=== PATIENT | female | born 1940 | race Two or more races ===

== ENCOUNTER 2017-01-29 20:47 | Emergency (ER) | payer MEDICARE, OTHER ==
[2017-01-29 21:01] VITALS: BP 150/67
[2017-01-29] MEDS ORDERED: Sodium Chloride 0.9% 10 ML Syringe FLUSH PRN (21:29)
--- NOTE | 2017-01-29 21:36 | EDM.PDOC ---
ED HPI GENERAL MEDICAL PROBLEM - General Chief Complaint: Upper Extremity Injury/Pain Stated Complaint: PAIN IN NECK AND GOING DOWN ARM Time Seen by Provider: 01/29/17 21:12 Source of Information: Reports: Patient History Limitations: Reports: No Limitations - History of Present Illness INITIAL COMMENTS - FREE TEXT/NARRATIVE: Patient is a 76-year-old female who presents the ED with multiple complaints. States this past Friday developed faint anterior chest discomfort with radiation of pain from the neck into her left arm. States that discomfort went away after rubbing her left arm. Next morning she had similar complaints in the right side of her neck into her right arm. She has been slightly more short of breath. She has also noticed increased swelling to legs bilaterally. States she has chronic swelling to the left leg normally due to vein harvesting for CABG 3 in 2008. There is no pain to her lower extremities. In addition she's noticed some mild distention to her abdomen and feels wesley. She's had some increasing pain to her abdomen that radiates into her lower extremities with ambulation. This is intermittent. Pain also radiates into her back. Describes as sharp achy sensation. Currently is rated 4 out of 10. She has no previous history of similar episodes. She denies any nausea/vomiting, currently no chest pain, productive cough, fever/chills, dysuria, diarrhea, constipation, blood in stool , hematuria, or any additional complaints. She has no history of DVT/PE. Past medical history: Asthma, seasonal allergies, hypertension, diabetes, hypercholesteremia, coronary artery disease, and [place]. Current medications: Glipizide, transient, metoprolol, amlodipine, lisinopril, omeprazole, aspirin 81 mg, vitamin B 12, and unknown cholesterol medication. Surgical history: CABG 3 2008, inguinal hernia repair, gallbladder Neck Pain Score (Numeric/FACES): 9 - Related Data Allergies Allergy/AdvReac Type Severity Reaction Status Date / Time Iodinated Contrast- Oral and Allergy Severe Swelling Verified 01/29/17 20:56 IV Dye [Iodinated Contrast Media - IV Dye] acetaminophen [From Tylenol] Allergy Swelling Verified 01/29/17 20:56 morphine Allergy Hives Verified 01/29/17 20:56 fluticasone propionate AdvReac Tachycardia Verified 01/29/17 20:56 [From Advair Diskus] Penicillins AdvReac Anxiety Verified 01/29/17 20:56 prednisone AdvReac Gi Bleeding Verified 01/29/17 20:56 salmeterol xinafoate AdvReac Tachycardia Verified 01/29/17 20:56 [From Anisa Mott] Home Meds: Home Meds Benzonatate 100 mg PO TID PRN 08/13/14 [History] Calcium Carb/Vitamin D3/Vit K1 [Viactiv Soft Chew] 1 tab PO DAILY 08/13/14 [ History] Linagliptin [Tradjenta] 5 mg PO DAILY 08/13/14 [History] Lisinopril 20 mg PO DAILY 08/13/14 [History] Methyl B 12 Plus 400 mcg PO DAILY 08/13/14 [History] Metoprolol Tartrate [Lopressor] 50 mg PO BID 08/13/14 [History] Omeprazole 20 mg PO DAILY 08/13/14 [History] amLODIPine [Norvasc] 5 mg PO DAILY 08/13/14 [History] atorvaSTATin [Lipitor] 20 mg PO DAILY 08/13/14 [History] glipiZIDE [Glucotrol] 20 mg PO BID 08/13/14 [History] Aspirin [Adult Low Dose Aspirin EC] 81 mg PO DAILY 07/17/15 [History] Past Medical History HEENT History: Reports: Allergic Rhinitis, Glaucoma Cardiovascular History: Reports: CAD, High Cholesterol, Hypertension Respiratory History: Reports: COPD Gastrointestinal History: Reports: GERD, PUD Other Gastrointestinal History: Left inguinal hernia repair Neurological History: Reports: Vertigo Endocrine/Metabolic History: Reports: Diabetes, Type II - Past Surgical History HEENT Surgical History: Reports: Cataract Surgery, LASIK Cardiovascular Surgical History: Reports: Coronary Artery Bypass GI Surgical History: Reports: Cholecystectomy, Hernia, Inguinal Other Musculoskeletal Surgeries/Procedures:: Carpal tunnel repair Social & Family History - Tobacco Use Smoking Status *Q: Never Smoker Second Hand Smoke Exposure: No - Alcohol Use Days Per Week of Alcohol Use: 0 - Recreational Drug Use Recreational Drug Use: No - Living Situation & Occupation Living situation: Reports: , with Spouse, with Family Occupation: Retired Review of Systems - Review of Systems Review Of Systems: ROS reveals no pertinent complaints other than HPI. ED EXAM, GENERAL - Physical Exam Exam: See Below Exam Limited By: No Limitations General Appearance: Alert, WD/WN, No Apparent Distress Ears: Hearing Grossly Normal Nose: Normal Inspection Throat/Mouth: Normal Inspection, Normal Oropharynx, Normal Voice, No Airway Compromise Neck: Normal Inspection, Supple, Non-Tender, Full Range of Motion. No: Carotid Bruit Respiratory/Chest: No Respiratory Distress, Lungs Clear, Normal Breath Sounds, No Accessory Muscle Use, Chest Non-Tender Cardiovascular: Normal Peripheral Pulses, Regular Rate, Rhythm, No JVD, Systolic Murmur Peripheral Pulses: 2+: Radial (L), Radial (R), Posterior Tibial (L), Posterior Tibial (R) GI/Abdominal: Normal Bowel Sounds, Soft, No Organomegaly, Tender (generalized), Other (No McBurney's). No: No Abnormal Bruit, No Mass Back Exam: Normal Inspection. No: CVA Tenderness (L), CVA Tenderness (R) Extremities: Normal Range of Motion, Non-Tender, Pedal Edema (left 1+>right trace, Left is chronic no new changes. ) Neurological: Alert, Oriented, CN II-XII Intact, Normal Cognition, No Motor/ Sensory Deficits Psychiatric: Normal Affect, Normal Mood Skin Exam: Warm, Dry, Intact, Normal Color, No Rash Course - Vital Signs Last Recorded V/S: Last Vital Signs Temp 97.5 F 01/29/17 20:56 Pulse 66 01/29/17 20:56 Resp BP 150/67 H 01/29/17 20:56 Pulse Ox 97 01/29/17 20:56 - Orders/Labs/Meds Orders: Active Orders 24 hr Category Date Time Status EKG 12 Lead [EKG Documentation Completion] [RC] STAT Care 01/29/17 21:19 Active Peripheral IV Care [RC] . DIRECTED Care 01/29/17 21:29 Active Peripheral IV Insertion Adult [OM.PC] Stat Oth 01/29/17 21:29 Ordered Labs: Laboratory Tests 01/29/17 01/29/17 01/29/17 Range/Units 21:35 21:35 21:35 WBC 5.82 (3.98-10.04) K/mm3 RBC 4.21 (3.98-5.22) M/mm3 Hgb 11.8 (11.2-15.7) gm/L Hct 35.8 (34.1-44.9) % MCV 85.0 (79.4-94.8) fl MCH 28.0 (25.6-32.2) pg MCHC 33.0 (32.2-35.5) g/dl RDW Std Deviation 46.9 H (36.4-46.3) fL Plt Count 175 L (182-369) K/mm3 MPV 9.5 (9.4-12.3) fl Neut % (Auto) 61.6 (34.0-71.1) % Lymph % (Auto) 25.3 (19.3-51.7) % [place] % (Auto) 11.5 (4.7-12.5) % Eos % (Auto) 1.2 (0.7-5.8) Baso % (Auto) 0.2 (0.1-1.2) % Neut # (Auto) 3.59 (1.56-6.13) K/mm3 Lymph # (Auto) 1.47 (1.18-3.74) K/mm3 [place] # (Auto) 0.67 H (0.24-0.36) K/mm3 Eos # (Auto) 0.07 (0.04-0.36) K/mm3 Baso # (Auto) 0.01 (0.01-0.08) K/mm3 PT 9.9 (8.0-13.0) SECONDS INR 0.91 APTT 24 (22-36) SECONDS Sodium 138 (136-145) mEq/L Potassium 4.1 (3.5-5.1) mEq/L Chloride 104 (98-107) mEq/L Carbon Dioxide 26 (21-32) mEq/L Anion Gap 12.1 (5-15) BUN 20 H (7-18) mg/dL Creatinine 0.9 (0.55-1.02) mg/dL Est Cr Clr Drug Dosing 37.00 mL/min Estimated GFR (MDRD) > 60 (>60) mL/min BUN/Creatinine Ratio 22.2 H (14-18) Glucose 166 H (83-115) mg/dL Calcium 8.0 L (8.5-10.1) mg/dL Total Bilirubin 0.4 (0.2-1.0) mg/dL AST 19 (15-37) U/L ALT 24 (14-59) U/L Alkaline Phosphatase 127 H (46-116) U/L Troponin I < 0.017 (0.00-0.056) ng/mL C-Reactive Protein (<1.0) mg/dL B-Natriuretic Peptide (0-100) pg/mL Total Protein 7.3 (6.4-8.2) g/dl Albumin 3.6 (3.4-5.0) g/dl Globulin 3.7 gm/dL Albumin/Globulin Ratio 1.0 (1-2) Lipase (73-393) U/L Urine Color (Yellow) Urine Appearance (Clear) Urine pH (5.0-8.0) Ur Specific [place] (1.005-1.030) Urine Protein (Negative) Urine Glucose (UA) (Negative) Urine Ketones (Negative) Urine Occult Blood (Negative) Urine Nitrite (Negative) Urine Bilirubin (Negative) Urine Urobilinogen (0.2-1.0) Ur Leukocyte Esterase (Negative) Urine RBC (0-5) /hpf Urine WBC (0-5) /hpf Ur Epithelial Cells (0-5) /hpf Urine Bacteria (FEW) /hpf Urine Mucus (FEW) /hpf 01/29/17 01/29/17 01/30/17 Range/Units 21:35 21:35 00:30 WBC (3.98-10.04) K/mm3 RBC (3.98-5.22) M/mm3 Hgb (11.2-15.7) gm/L Hct (34.1-44.9) % MCV (79.4-94.8) fl MCH (25.6-32.2) pg MCHC (32.2-35.5) g/dl RDW Std Deviation (36.4-46.3) fL Plt Count (182-369) K/mm3 MPV (9.4-12.3) fl Neut % (Auto) (34.0-71.1) % Lymph % (Auto) (19.3-51.7) % [place] % (Auto) (4.7-12.5) % Eos % (Auto) (0.7-5.8) Baso % (Auto) (0.1-1.2) % Neut # (Auto) (1.56-6.13) K/mm3 Lymph # (Auto) (1.18-3.74) K/mm3 [place] # (Auto) (0.24-0.36) K/mm3 Eos # (Auto) (0.04-0.36) K/mm3 Baso # (Auto) (0.01-0.08) K/mm3 PT (8.0-13.0) SECONDS INR APTT (22-36) SECONDS Sodium (136-145) mEq/L Potassium (3.5-5.1) mEq/L Chloride (98-107) mEq/L Carbon Dioxide (21-32) mEq/L Anion Gap (5-15) BUN (7-18) mg/dL Creatinine (0.55-1.02) mg/dL Est Cr Clr Drug Dosing mL/min Estimated GFR (MDRD) (>60) mL/min BUN/Creatinine Ratio (14-18) Glucose (83-115) mg/dL Calcium (8.5-10.1) mg/dL Total Bilirubin (0.2-1.0) mg/dL AST (15-37) U/L ALT (14-59) U/L Alkaline Phosphatase (46-116) U/L Troponin I (0.00-0.056) ng/mL C-Reactive Protein 0.9 (<1.0) mg/dL B-Natriuretic Peptide 97 (0-100) pg/mL Total Protein (6.4-8.2) g/dl Albumin (3.4-5.0) g/dl Globulin gm/dL Albumin/Globulin Ratio (1-2) Lipase 251 (73-393) U/L Urine Color Yellow (Yellow) Urine Appearance Clear (Clear) Urine pH 6.0 (5.0-8.0) Ur Specific [place] 1.020 (1.005-1.030) Urine Protein Negative (Negative) Urine Glucose (UA) Negative (Negative) Urine Ketones Negative (Negative) Urine Occult Blood 1+ H (Negative) Urine Nitrite Negative (Negative) Urine Bilirubin Negative (Negative) Urine Urobilinogen 0.2 (0.2-1.0) Ur Leukocyte Esterase Negative (Negative) Urine RBC 0-5 (0-5) /hpf Urine WBC Not seen (0-5) /hpf Ur Epithelial Cells 0-5 (0-5) /hpf Urine Bacteria Not seen (FEW) /hpf Urine Mucus Not seen (FEW) /hpf Meds: Medications Discontinued Medications Generic Name Dose Route Start Last Admin Trade Name Freq PRN Reason Stop Dose Admin Sodium Chloride 10 ml 01/29/17 21:29 01/29/17 21:35 Saline Flush FLUSH 10 ml ASDIRECTED PRN Administration Keep Vein Open - Re-Assessments/Exams Free Text/Narrative Re-Assessment/Exam: Ordered peripheral IV. Initial labs and studies include CBC, chem 14, lipase, CRP, EKG, PTT/INR, PTT, chest x-ray 1 view, and UA. 01/29/17 21:37 01/29/17 21:38 EKG: Sinus rhythm rate of 61, intraventricular conduction delay, left bundle branch block present. Previous EKG dated 05/31/2016 sinus rhythm at a rate of 68 with no left bundle branch block present. Labs reviewed: CBC essentially normal. Troponin less than 0.017. CRP 0.9. BNP 97. Lipase 251. Chem 14 essentially normal as well. Chest x-ray reviewed: no acute findings Noted. Reviewed with Dr. Nuno. I had ordered CT of the abdomen and pelvis with IV contrast. Patient is allergic to IV contrast. Discussed lab findings with patient. She has opted to not stay and have oral contrast to obtain CT abdomen and pelvis. She has appt with PCP this coming Friday and will wait to see her for any needed testing. Offered to obtain CT abdomen and pelvis with oral contrast on outpatient basis to which she refuses. Will discharge patient home with instructions as documented. Unclear etiology of current complaint. Troponin was negative which is in most cases ruling out the heart as cause since it should have been positive with almost three days of symptoms. Due to patients history additional provocative testing maybe required. PCP can determine. As for swelling to lower legs, unclear etiology. She has strong pedal pulses with minimal/ no swelling to the right leg. Left leg is chronically swollen since endovein harvesting of GSV 2008 with no new changes with further discussion. She has no pain to lower extremities concerning for DVT. She has no history PE/DVT. In addition she denies history of aortic abdominal aneurysm. Thus at this point believe it would be safe for patient to be discharged home with instructions to followup with PCP. Departure - Departure Time of Disposition: 01:11 Disposition: Home, Self-Care 01 Condition: Good Clinical Impression: Neck and shoulder pain, Leg swelling Abdominal pain Qualifiers: Abdominal location: generalized Qualified Code(s): R10.84 - Generalized abdominal pain - Discharge Information Instructions: Edema Referrals: Floberg,Sandie M, [employer] [Primary Care Provider] - Forms: ED Department Discharge Additional Instructions: Unclear etiology of current complaints as discussed. Lab work was essentially normal with no concerning findings. CXR was negative for acute findings. Will have you see PCP for further evaluation of abdominal discomfort as requested. Return to the E.D. as needed for any new or worsening symptoms. - My Orders Last 24 Hours: My Active Orders 01/29/17 21:19 EKG 12 Lead [EKG Documentation Completion] [RC] STAT 01/29/17 21:29 Peripheral IV Care [RC] . DIRECTED Peripheral IV Insertion Adult [OM.PC] Stat - Assessment/Plan Last 24 Hours: My Active Orders 01/29/17 21:19 EKG 12 Lead [EKG Documentation Completion] [RC] STAT 01/29/17 21:29 Peripheral IV Care [RC] . DIRECTED Peripheral IV Insertion Adult [OM.PC] Stat
--- NOTE | 2017-01-30 07:43 | CR ---
Chest: Portable view of the chest was obtained. Comparison: Previous chest x-ray of 05/31/16. Heart is mildly enlarged but accentuated from portable technique. Previous sternotomy is noted. Lungs are clear with no acute infiltrates. Bony structures are grossly intact. Surgical clips are seen from prior cholecystectomy. Impression: 1. Nothing acute is appreciated on portable chest x-ray. Diagnostic code #2
== END 2017-01-30 01:26 | disposition home or self-care (01) ==
LOC: JD.ED 20:47
DX: M54.2 Cervicalgia (principal); M25.512 Pain in left shoulder; R10.84 Generalized abdominal pain; M79.89 Other specified soft tissue disorders; I10 Essential (primary) hypertension; I25.810 Atherosclerosis of coronary artery bypass graft(s) without angina pectoris; E78.00 Pure hypercholesterolemia, unspecified; J44.9 Chronic obstructive pulmonary disease, unspecified; J45.909 Unspecified asthma, uncomplicated; K21.9 Gastro-esophageal reflux disease without esophagitis; E11.9 Type 2 diabetes mellitus without complications; R06.02 Shortness of breath; Z98.49 Cataract extraction status, unspecified eye; Z95.1 Presence of aortocoronary bypass graft; Z98.890 Other specified postprocedural states; Z79.84 Long term (current) use of oral hypoglycemic drugs; Z79.82 Long term (current) use of aspirin; Z79.899 Other long term (current) drug therapy; Z88.0 Allergy status to penicillin; Z88.5 Allergy status to narcotic agent; Z88.8 Allergy status to other drugs, medicaments and biological substances; Z91.041 Radiographic dye allergy status
CPT/HCPCS: 36415; 71010; 80053; 81001; 83690; 83880; 84484; 85025; 85610; 85730; 86140; 93005; 99284; J7050; 99283

== ENCOUNTER 2017-05-03 19:34 | Emergency (ER) | payer MEDICARE, OTHER ==
[2017-05-03] MEDS ORDERED: Albuterol/Ipratropium 3.0-0.5 MG/3 ML Neb Soln NEB ONE (20:11)
--- NOTE | 2017-05-03 20:25 | EDM.PDOC ---
ED HPI GENERAL MEDICAL PROBLEM - General Chief Complaint: Respiratory Problem Stated Complaint: TROUBLE BREATHING Time Seen by Provider: 05/03/17 19:36 Source of Information: Reports: Patient, Family History Limitations: Reports: No Limitations - History of Present Illness INITIAL COMMENTS - FREE TEXT/NARRATIVE: This is a 76-year-old female. Over the last couple of days she's been having increasing coughing and wheezing. She has no nebulizer medicine at home and she has no inhaler at home. Because of her coughing and wheezing which she describes as a flareup of her asthma she comes to the ER. She states had she had the nebulizer and inhaler she probably would not come to the ER. She does have a history of chronic versus acute bronchitis and gets flareups periodically of her asthma. She has been eating she has been drinking she's had no nausea vomiting no diarrhea. She denies any abdominal pain other than if she coughs too much that her belly hurts. She has run a low-grade fever at home but she can't tell me how high it's been. Chest Pain Score (Numeric/FACES): 4 - Related Data Allergies Allergy/AdvReac Type Severity Reaction Status Date / Time Iodinated Contrast- Oral and Allergy Severe Swelling Verified 01/29/17 20:56 IV Dye [Iodinated Contrast Media - IV Dye] acetaminophen [From Tylenol] Allergy Swelling Verified 01/29/17 20:56 morphine Allergy Hives Verified 01/29/17 20:56 fluticasone propionate AdvReac Tachycardia Verified 01/29/17 20:56 [From Advair Diskus] Penicillins AdvReac Anxiety Verified 01/29/17 20:56 prednisone AdvReac Gi Bleeding Verified 01/29/17 20:56 salmeterol xinafoate AdvReac Tachycardia Verified 01/29/17 20:56 [From Advair Diskus] Home Meds: Home Meds Benzonatate 100 mg PO TID PRN 08/13/14 [History] Calcium Carb/Vitamin D3/Vit K1 [Viactiv Soft Chew] 1 tab PO DAILY 08/13/14 [ History] Linagliptin [Tradjenta] 5 mg PO DAILY 08/13/14 [History] Lisinopril 20 mg PO DAILY 08/13/14 [History] Methyl B 12 Plus 400 mcg PO DAILY 08/13/14 [History] Metoprolol Tartrate [Lopressor] 50 mg PO BID 08/13/14 [History] Omeprazole 20 mg PO DAILY 08/13/14 [History] amLODIPine [Norvasc] 5 mg PO DAILY 08/13/14 [History] atorvaSTATin [Lipitor] 20 mg PO DAILY 08/13/14 [History] glipiZIDE [Glucotrol] 20 mg PO BID 08/13/14 [History] Aspirin [Adult Low Dose Aspirin EC] 81 mg PO DAILY 07/17/15 [History] Albuterol [IMW: Ventolin HFA] 2 puff INH Q6H #18 gm 05/03/17 [Rx] Cephalexin [Keflex] 500 mg PO TID #21 cap 05/03/17 [Rx] Past Medical History HEENT History: Reports: Allergic Rhinitis, Glaucoma Cardiovascular History: Reports: CAD, High Cholesterol, Hypertension Respiratory History: Reports: COPD Gastrointestinal History: Reports: GERD, PUD Other Gastrointestinal History: Left inguinal hernia repair Neurological History: Reports: Vertigo Endocrine/Metabolic History: Reports: Diabetes, Type II - Past Surgical History HEENT Surgical History: Reports: Cataract Surgery, LASIK Cardiovascular Surgical History: Reports: Coronary Artery Bypass GI Surgical History: Reports: Cholecystectomy, Hernia, Inguinal Other Musculoskeletal Surgeries/Procedures:: Carpal tunnel repair. Social & Family History - Tobacco Use Smoking Status *Q: Never Smoker Second Hand Smoke Exposure: No - Alcohol Use Days Per Week of Alcohol Use: 0 - Recreational Drug Use Recreational Drug Use: No - Living Situation & Occupation Living situation: Reports: , with Spouse, with Family Occupation: Retired ED ROS GENERAL - Review of Systems Review Of Systems: See Below Constitutional: Reports: Fever, Chills, Malaise HEENT: Reports: No Symptoms Respiratory: Reports: Shortness of Breath, Wheezing, Cough Cardiovascular: Denies: Chest Pain Endocrine: Reports: No Symptoms GI/Abdominal: Reports: Other (Abdominal pain from coughing). Denies: Diarrhea, Nausea, Vomiting : Reports: No Symptoms Musculoskeletal: Reports: No Symptoms Skin: Reports: No Symptoms Neurological: Reports: No Symptoms Psychiatric: Reports: No Symptoms Hematologic/Lymphatic: Reports: No Symptoms ED EXAM, GENERAL - Physical Exam Exam: See Below Exam Limited By: No Limitations General Appearance: Alert, WD/WN, No Apparent Distress Eye Exam: Bilateral Eye: Normal Inspection Ears: Normal External Exam, Normal Canal, Normal TMs Nose: Normal Inspection Throat/Mouth: Normal Inspection, Normal Lips, Normal Voice, No Airway Compromise Head: Normocephalic Neck: Supple Respiratory/Chest: Other (Occasional expiratory wheeze noted but no prolonged expiratory phase otherwise the lungs appear to be clear) Cardiovascular: Regular Rate, Rhythm, No Murmur GI/Abdominal: Soft Back Exam: Full Range of Motion Extremities: Normal Range of Motion, Other (Left lower extremity has some slight swelling compared to the right but apparently that is normal for her) Neurological: Alert, Oriented Psychiatric: Normal Affect, Normal Mood Skin Exam: Warm, Dry Course - Vital Signs Last Recorded V/S: Last Vital Signs Temp 98.4 F 05/03/17 19:43 Pulse 72 05/03/17 20:29 Resp 20 05/03/17 19:43 BP 173/66 H 05/03/17 19:43 Pulse Ox 97 05/03/17 20:29 - Orders/Labs/Meds Orders: Active Orders 24 hr Category Date Time Status RT Aerosol Therapy [RC] ASDIRECTED Care 05/03/17 20:11 Active Chest 2V [CR] Stat Exams 05/03/17 20:11 Taken cefTRIAXone [Rocephin] 1 gm Med 05/03/17 21:15 Active Lidocaine 1% [Xylocaine 1%] 2.1 ml IM Q24H Medication Orders Ceftriaxone Sodium 1 gm/ (Lidocaine HCl 2.1 ml) 0 gm IM Q24H DA Labs: Laboratory Tests 05/03/17 05/03/17 Range/Units 20:27 20:27 WBC 8.57 (3.98-10.04) K/mm3 RBC 4.32 (3.98-5.22) M/mm3 Hgb 12.1 (11.2-15.7) gm/L Hct 36.2 (34.1-44.9) % MCV 83.8 (79.4-94.8) fl MCH 28.0 (25.6-32.2) pg MCHC 33.4 (32.2-35.5) g/dl RDW Std Deviation 46.2 (36.4-46.3) fL Plt Count 176 L (182-369) K/mm3 MPV 9.3 L (9.4-12.3) fl Neut % (Auto) 79.2 H (34.0-71.1) % Lymph % (Auto) 11.4 L (19.3-51.7) % [place] % (Auto) 7.9 (4.7-12.5) % Eos % (Auto) 1.3 (0.7-5.8) Baso % (Auto) 0.1 (0.1-1.2) % Neut # (Auto) 6.78 H (1.56-6.13) K/mm3 Lymph # (Auto) 0.98 L (1.18-3.74) K/mm3 [place] # (Auto) 0.68 H (0.24-0.36) K/mm3 Eos # (Auto) 0.11 (0.04-0.36) K/mm3 Baso # (Auto) 0.01 (0.01-0.08) K/mm3 Sodium 138 (136-145) mEq/L Potassium 4.2 (3.5-5.1) mEq/L Chloride 103 (98-107) mEq/L Carbon Dioxide 29 (21-32) mEq/L Anion Gap 10.2 (5-15) BUN 15 (7-18) mg/dL Creatinine 0.9 (0.55-1.02) mg/dL Est Cr Clr Drug Dosing TNP Estimated GFR (MDRD) > 60 (>60) mL/min BUN/Creatinine Ratio 16.7 (14-18) Glucose 125 H (83-115) mg/dL Calcium 8.8 (8.5-10.1) mg/dL Total Bilirubin 0.5 (0.2-1.0) mg/dL AST 19 (15-37) U/L ALT 16 (14-59) U/L Alkaline Phosphatase 122 H (46-116) U/L Total Protein 7.4 (6.4-8.2) g/dl Albumin 3.8 (3.4-5.0) g/dl Globulin 3.6 gm/dL Albumin/Globulin Ratio 1.1 (1-2) Meds: Medications Generic Name Dose Route Start Last Admin Trade Name Freq PRN Reason Stop Dose Admin Ceftriaxone Sodium 1 gm/ 0 gm 05/03/17 21:15 Lidocaine HCl 2.1 ml IM Q24H DA Discontinued Medications Generic Name Dose Route Start Last Admin Trade Name Freq PRN Reason Stop Dose Admin Albuterol/Ipratropium 3 ml 05/03/17 20:11 05/03/17 20:26 Duoneb 3.0-0.5 Mg/3 Ml NEB 05/03/17 20:12 3 ml ONETIME ONE Administration - Re-Assessments/Exams Free Text/Narrative Re-Assessment/Exam: 05/03/17 21:18 Patient tolerated the DuoNeb with no problems and no tachycardia. We'll provide a Rocephin shot IM to start the antibiotics. We can dispense her Xopenex individual containers for her nebulizer at home but they wish to get a prescription for the albuterol rather than using the [facility] since the albuterol inhaler is $70. Departure - Departure Time of Disposition: 21:20 Disposition: Home, Self-Care 01 Condition: Good Clinical Impression: Exacerbation of asthma Acute bronchitis Qualifiers: Bronchitis organism: unspecified organism Qualified Code(s): J20.9 - Acute bronchitis, unspecified - Discharge Information Prescriptions: Albuterol [IMW: Ventolin HFA] 2 puff INH Q6H #18 gm Cephalexin [Keflex] 500 mg PO TID #21 cap Instructions: Acute Bronchitis, [id number] Referrals: Sandie Bhagat, [employer] [Primary Care Provider] - Forms: ED Department Discharge Additional Instructions: Take the antibiotics faithfully continue get them tomorrow, use your albuterol inhaler with a spacer to help get the medicine in your lungs better, usually nebulizer every 8-12 hours as needed for your breathing, consider getting some Robitussin-DM or another cough syrup at the pharmacy when you chicken picker your medications, follow-up with your doctor this week for recheck, return to the ER if needed - My Orders Last 24 Hours: My Active Orders 05/03/17 20:11 RT Aerosol Therapy [RC] ASDIRECTED Chest 2V [CR] Stat 05/03/17 21:15 cefTRIAXone [Rocephin] 1 gm Lidocaine 1% [Xylocaine 1%] 2.1 ml IM Q24H - Assessment/Plan Last 24 Hours: My Active Orders 05/03/17 20:11 RT Aerosol Therapy [RC] ASDIRECTED Chest 2V [CR] Stat 05/03/17 21:15 cefTRIAXone [Rocephin] 1 gm Lidocaine 1% [Xylocaine 1%] 2.1 ml IM Q24H
[2017-05-03] MEDS ORDERED: cefTRIAXone 1 GM, Lidocaine 1% 2.1 ML IM SCH ×2 (21:15)
[2017-05-03] MEDS ORDERED: Levalbuterol HCl 1.25 MG/3 ML Neb ONE (21:22)
[2017-05-03 21:38] VITALS: BP 148/63
--- NOTE | 2017-05-04 19:58 | CR ---
Chest: Two views of the chest were obtained. Comparison: Previous chest x-ray of 01/29/17. Heart size appears within normal limits. Tortuous thoracic aorta is seen. Previous sternotomy is noted. Prior cholecystectomy is seen. Lungs are clear with no acute infiltrates. Degenerative spurring is noted within the spine on the lateral view. Impression: 1. Incidental findings. Nothing acute is appreciated on two-view chest x-ray. Diagnostic code #2
== END 2017-05-03 21:35 | disposition home or self-care (01) ==
LOC: JD.ED 19:34
DX: J45.901 Unspecified asthma with (acute) exacerbation (principal); J20.9 Acute bronchitis, unspecified; E78.00 Pure hypercholesterolemia, unspecified; E11.9 Type 2 diabetes mellitus without complications; Z88.5 Allergy status to narcotic agent; Z88.0 Allergy status to penicillin; Z88.8 Allergy status to other drugs, medicaments and biological substances; Z79.82 Long term (current) use of aspirin; Z79.899 Other long term (current) drug therapy; Z98.49 Cataract extraction status, unspecified eye
CPT/HCPCS: 36415; 71020; 80053; 85025; 94640; 96372; 99285; J0696; 99284

== ENCOUNTER 2017-09-21 05:49 | Emergency (ER) | payer MEDICARE, OTHER ==
[2017-09-21 05:58] VITALS: BP 173/69
--- NOTE | 2017-09-21 07:34 | EDM.PDOC ---
ED HPI GENERAL MEDICAL PROBLEM - General Chief Complaint: Headache Stated Complaint: HEADACHE Time Seen by Provider: 09/21/17 06:29 Source of Information: Reports: Patient History Limitations: Reports: No Limitations - History of Present Illness INITIAL COMMENTS - FREE TEXT/NARRATIVE: This is a 77-year-old female. She has a history of a headache for the last month. Her doctor got an MRI of her brain and apparently was all normal but she still has the headache. She comes to the ER for evaluation because of her headache. She denies any recent illnesses no colds no cough no ear pain no nausea no vomiting no diarrhea. She describes it as a dull throbbing type pain in the center of her forehead and the top of her head. She denies any photophobia or difficulty in hearing. It does not make her nauseated. She has not taken any medications for it because she can't take ibuprofen. I think she has taken some Tylenol but it hasn't helped. Headache Pain Score (Numeric/FACES): 9 - Related Data Allergies Allergy/AdvReac Type Severity Reaction Status Date / Time Iodinated Contrast- Oral and Allergy Severe Swelling Verified 09/21/17 05:58 IV Dye [Iodinated Contrast Media - IV Dye] acetaminophen [From Tylenol] Allergy Swelling Verified 09/21/17 05:58 morphine Allergy Hives Verified 09/21/17 05:58 fluticasone propionate AdvReac Tachycardia Verified 09/21/17 05:58 [From Advair Diskus] Penicillins AdvReac Anxiety Verified 09/21/17 05:58 prednisone AdvReac Gi Bleeding Verified 09/21/17 05:58 salmeterol xinafoate AdvReac Tachycardia Verified 09/21/17 05:58 [From Advair Diskus] Home Meds: Home Meds Benzonatate 100 mg PO TID PRN 08/13/14 [History] Calcium Carb/Vitamin D3/Vit K1 [Viactiv Soft Chew] 1 tab PO DAILY 08/13/14 [ History] Linagliptin [Tradjenta] 5 mg PO DAILY 08/13/14 [History] Lisinopril 20 mg PO DAILY 08/13/14 [History] Methyl B 12 Plus 400 mcg PO DAILY 08/13/14 [History] Metoprolol Tartrate [Lopressor] 75 mg PO BID 08/13/14 [History] Omeprazole 20 mg PO DAILY 08/13/14 [History] amLODIPine [Norvasc] 5 mg PO DAILY 08/13/14 [History] atorvaSTATin [Lipitor] 20 mg PO DAILY 08/13/14 [History] glipiZIDE [Glucotrol] 20 mg PO BID 08/13/14 [History] Aspirin [Adult Low Dose Aspirin EC] 81 mg PO DAILY 07/17/15 [History] Albuterol [IMW: Ventolin HFA] 2 puff INH Q6H #18 gm 05/03/17 [Rx] Acetaminophen/Butalbital/Caff [Fioricet 325-50-40 MG] 1 each PO Q6H PRN #15 tab 09/21/17 [Rx] Past Medical History HEENT History: Reports: Allergic Rhinitis, Glaucoma Cardiovascular History: Reports: CAD, High Cholesterol, Hypertension Respiratory History: Reports: Asthma, COPD Gastrointestinal History: Reports: GERD, PUD Other Gastrointestinal History: Left inguinal hernia repair Neurological History: Reports: Headaches, Chronic, Vertigo Endocrine/Metabolic History: Reports: Diabetes, Type II - Past Surgical History HEENT Surgical History: Reports: Cataract Surgery, LASIK Cardiovascular Surgical History: Reports: Coronary Artery Bypass GI Surgical History: Reports: Cholecystectomy, Hernia, Inguinal Other Musculoskeletal Surgeries/Procedures:: Carpal tunnel repair. Social & Family History - Tobacco Use Smoking Status *Q: Never Smoker Second Hand Smoke Exposure: No - Caffeine Use Caffeine Use: Reports: Coffee - Alcohol Use Days Per Week of Alcohol Use: 0 - Recreational Drug Use Recreational Drug Use: No - Living Situation & Occupation Living situation: Reports: , with Spouse, with Family Occupation: Retired ED ROS GENERAL - Review of Systems Review Of Systems: See Below Constitutional: Denies: Fever, Chills HEENT: Reports: No Symptoms Respiratory: Reports: No Symptoms Cardiovascular: Reports: No Symptoms Endocrine: Reports: No Symptoms GI/Abdominal: Reports: No Symptoms : Reports: No Symptoms Musculoskeletal: Reports: Other (Various mild arthralgia ) Skin: Reports: No Symptoms Neurological: Reports: Headache Psychiatric: Reports: No Symptoms Hematologic/Lymphatic: Reports: No Symptoms - Physical Exam Exam: See Below Exam Limited By: No Limitations General Appearance: Alert, WD/WN, No Apparent Distress Eye Exam: Bilateral Eye: Normal Inspection, PERRL Ears: Normal External Exam, Normal Canal, Normal TMs Nose: Normal Inspection Throat/Mouth: Normal Inspection, Normal Lips, Normal Voice, No Airway Compromise Head Exam: Normocephalic Neck: Supple Respiratory/Chest: No Respiratory Distress, Lungs Clear, Normal Breath Sounds Cardiovascular: Regular Rate, Rhythm, No Murmur GI/Abdominal: Soft, Non-Tender Neuro Exam (Abbreviated): Alert, Oriented, Normal Cognition, No Motor/Sensory Deficits Back Exam: Full Range of Motion Extremities: Normal Inspection, Normal Range of Motion Psychiatric: Normal Affect, Normal Mood Skin Exam: Warm, Dry Course - Vital Signs Last Recorded V/S: Last Vital Signs Temp 98.3 F 09/21/17 05:53 Pulse 65 09/21/17 05:53 Resp 18 09/21/17 05:53 BP 173/69 H 09/21/17 05:53 Pulse Ox 99 09/21/17 05:53 Departure - Departure Time of Disposition: 07:32 Disposition: Home, Self-Care 01 Condition: Good Clinical Impression: Headache Qualifiers: Headache type: other headache syndrome Qualified Code(s): G44.89 - Other headache syndrome - Discharge Information Prescriptions: Acetaminophen/Butalbital/Caff [Fioricet 325-50-40 MG] 1 each PO Q6H PRN #15 tab PRN Reason: Headache Referrals: Sandie Bhagat [facility] [employer] [Primary Care Provider] - Additional Instructions: Take the medicine as needed for the headache, be certain to follow up with your family doctor for continued workup of your persistent headaches, return to the ER as needed
[2017-09-21] MEDS ORDERED: HYDROmorphone 1 MG/ML Syringe IM ONE (07:49)
[2017-09-21] MEDS ORDERED: HYDROmorphone 0.5 MG/0.5 ML SYRINGE ONE (07:51)
== END 2017-09-21 08:00 | disposition home or self-care (01) ==
LOC: JD.ED 05:49
DX: G44.89 Other headache syndrome (principal); E78.00 Pure hypercholesterolemia, unspecified; I10 Essential (primary) hypertension; E11.9 Type 2 diabetes mellitus without complications; Z91.041 Radiographic dye allergy status; Z88.0 Allergy status to penicillin; Z88.8 Allergy status to other drugs, medicaments and biological substances; Z88.5 Allergy status to narcotic agent; Z79.82 Long term (current) use of aspirin; Z79.899 Other long term (current) drug therapy
CPT/HCPCS: 99283; 99284

== ENCOUNTER 2017-10-02 02:08 | Emergency (ER) | payer MEDICARE, OTHER ==
--- NOTE | 2017-10-02 02:43 | EDM.PDOC ---
ED HPI GENERAL MEDICAL PROBLEM - General Chief Complaint: Chest Pain Stated Complaint: Chest Pain Time Seen by Provider: 10/02/17 02:33 - History of Present Illness INITIAL COMMENTS - FREE TEXT/NARRATIVE: 77-year-old female presents emergency room with chest pain. Patient has had chest pain for the last several hours, probably 3, that started while she was cleaning up the birdcage. She describes it as a sharp pain substernal. It did not radiate. She had no associated diaphoresis or nausea or vomiting. This pain is worsened with exertional activity like climbing up and down stairs. She has not had any breathing difficulties or shortness of breath. The patient is a significant history of asthma diabetes hypertension hyperlipidemia and known atherosclerotic cardiovascular disease. 10 or 11 years ago she had a three-vessel bypass done. Chest Pain Score (Numeric/FACES): 9 - Related Data Allergies Allergy/AdvReac Type Severity Reaction Status Date / Time Iodinated Contrast- Oral and Allergy Intermediate Swelling Verified 10/02/17 02: 21 IV Dye [Iodinated Contrast Media - IV Dye] acetaminophen [From Tylenol] Allergy Swelling Verified 10/02/17 02:21 morphine Allergy Hives Verified 10/02/17 02:21 fluticasone propionate AdvReac Tachycardia Verified 10/02/17 02:21 [From Advair Diskus] Penicillins AdvReac Anxiety Verified 10/02/17 02:21 prednisone AdvReac Gi Bleeding Verified 10/02/17 02:21 salmeterol xinafoate AdvReac Tachycardia Verified 10/02/17 02:21 [From Advair Diskus] Home Meds: Home Meds Benzonatate 100 mg PO TID PRN 08/13/14 [History] Calcium Carb/Vitamin D3/Vit K1 [Viactiv Soft Chew] 1 tab PO DAILY 08/13/14 [ History] Linagliptin [Tradjenta] 5 mg PO DAILY 08/13/14 [History] Lisinopril 20 mg PO DAILY 08/13/14 [History] Methyl B 12 Plus 400 mcg PO DAILY 08/13/14 [History] Metoprolol Tartrate [Lopressor] 75 mg PO BID 08/13/14 [History] Omeprazole 20 mg PO DAILY 08/13/14 [History] amLODIPine [Norvasc] 5 mg PO DAILY 08/13/14 [History] atorvaSTATin [Lipitor] 20 mg PO DAILY 08/13/14 [History] glipiZIDE [Glucotrol] 20 mg PO BID 08/13/14 [History] Aspirin [Adult Low Dose Aspirin EC] 81 mg PO DAILY 07/17/15 [History] Albuterol [IMW: Ventolin HFA] 2 puff INH Q6H #18 gm 05/03/17 [Rx] Past Medical History HEENT History: Reports: Allergic Rhinitis, Glaucoma Cardiovascular History: Reports: CAD, High Cholesterol, Hypertension Respiratory History: Reports: Asthma, COPD Gastrointestinal History: Reports: GERD, PUD Other Gastrointestinal History: Left inguinal hernia repair Neurological History: Reports: Headaches, Chronic, Vertigo Endocrine/Metabolic History: Reports: Diabetes, Type II - Past Surgical History HEENT Surgical History: Reports: Cataract Surgery, LASIK Cardiovascular Surgical History: Reports: Coronary Artery Bypass GI Surgical History: Reports: Cholecystectomy, Hernia, Inguinal Other Musculoskeletal Surgeries/Procedures:: Carpal tunnel repair. Social & Family History - Tobacco Use Smoking Status *Q: Never Smoker Second Hand Smoke Exposure: No - Caffeine Use Caffeine Use: Reports: None - Alcohol Use Days Per Week of Alcohol Use: 0 - Recreational Drug Use Recreational Drug Use: No - Living Situation & Occupation Living situation: Reports: , with Spouse, with Family Occupation: Retired ED ROS GENERAL - Review of Systems Review Of Systems: See Below Constitutional: Reports: No Symptoms HEENT: Reports: No Symptoms Respiratory: Reports: No Symptoms Cardiovascular: Reports: Chest Pain, Other (She's had worsening pain on exertion ). Denies: Dyspnea on Exertion, Edema Endocrine: Reports: No Symptoms GI/Abdominal: Reports: No Symptoms : Reports: No Symptoms Musculoskeletal: Reports: Neck Pain, Muscle Stiffness Neurological: Reports: Headache Psychiatric: Reports: No Symptoms Hematologic/Lymphatic: Reports: No Symptoms ED EXAM, GENERAL - Physical Exam Exam: See Below Exam Limited By: No Limitations General Appearance: Alert, No Apparent Distress Eye Exam: Bilateral Eye: Normal Inspection Ears: Normal External Exam, Normal Canal, Hearing Grossly Normal, Normal TMs Nose: Normal Inspection, Normal Mucosa, No Blood Throat/Mouth: Normal Inspection, Normal Lips, Normal Gums, Normal Oropharynx, Normal Voice, No Airway Compromise Head: Atraumatic, Normocephalic Neck: Normal Inspection, Supple, Non-Tender, Full Range of Motion, Tender Lateral, Thyromegaly, Other (She's not marked paraspinous muscle tenderness extending into her shoulders worse on the left compared to the right). No: Lymphadenopathy (L), Lymphadenopathy (R), Tender Midline Respiratory/Chest: No Respiratory Distress, Lungs Clear, Normal Breath Sounds Cardiovascular: Regular Rate, Rhythm, No Edema, No Murmur GI/Abdominal: Normal Bowel Sounds, Soft, Non-Tender Back Exam: Normal Inspection, Muscle Spasm (In the upper thoracic muscles and into her neck). No: CVA Tenderness (L), CVA Tenderness (R) Extremities: Normal Inspection, No Pedal Edema Neurological: Alert, Oriented, Normal Cognition Psychiatric: Normal Affect, Normal Mood Skin Exam: Warm, Dry, Intact Lymphatic: No Adenopathy Course - Vital Signs Last Recorded V/S: Last Vital Signs Temp 37.1 C 10/02/17 02:16 Pulse 53 L 10/02/17 02:16 Resp 23 H 10/02/17 02:16 BP 126/65 10/02/17 03:02 Pulse Ox 100 10/02/17 02:16 - Orders/Labs/Meds Orders: Active Orders 24 hr Category Date Time Status EKG Documentation Completion [RC] ASDIRECTED Care 10/02/17 02:18 Active Nitroglycerin [Nitrostat] Med 10/02/17 02:46 Active 0.4 mg SL Q5M PRN EKG 12 Lead [EK] Stat Ther 10/02/17 02:18 Ordered Medication Orders Nitroglycerin (Nitrostat) 0.4 mg SL Q5M PRN PRN Reason: Chest Pain Last Admin: 10/02/17 03:02 Dose: 0.4 mg Admin: 10/02/17 02:51 Dose: 0.4 mg Labs: Laboratory Tests 10/02/17 10/02/17 10/02/17 Range/Units 02:16 02:16 02:16 WBC 5.78 (3.98-10.04) K/mm3 RBC 4.36 (3.98-5.22) M/mm3 Hgb 12.4 (11.2-15.7) gm/L Hct 37.2 (34.1-44.9) % MCV 85.3 (79.4-94.8) fl MCH 28.4 (25.6-32.2) pg MCHC 33.3 (32.2-35.5) g/dl RDW Std Deviation 47.2 H (36.4-46.3) fL Plt Count 199 (182-369) K/mm3 MPV 9.6 (9.4-12.3) fl Neutrophils % (Manual) 47 (40-60) % Band Neutrophils % 0 (0-10) % Lymphocytes % (Manual) 46 H (20-40) % Atypical Lymphs % 0 % Monocytes % (Manual) 7 (2-10) % Eosinophils % (Manual) 0 L (0.7-5.8) % Basophils % (Manual) 0 L (0.1-1.2) Platelet Estimate Adequate RBC Morph Comment Normal PT 9.6 (8.0-13.0) SECONDS INR 0.90 APTT 23 (22-36) SECONDS Sodium 138 (136-145) mEq/L Potassium 4.2 (3.5-5.1) mEq/L Chloride 99 (98-107) mEq/L Carbon Dioxide 28 (21-32) mEq/L Anion Gap 15.2 H (5-15) BUN 20 H (7-18) mg/dL Creatinine 0.9 (0.55-1.02) mg/dL Est Cr Clr Drug Dosing TNP Estimated GFR (MDRD) > 60 (>60) mL/min BUN/Creatinine Ratio 22.2 H (14-18) Glucose 112 (83-115) mg/dL Calcium 8.7 (8.5-10.1) mg/dL Total Bilirubin 0.3 (0.2-1.0) mg/dL AST 24 (15-37) U/L ALT 31 (14-59) U/L Alkaline Phosphatase 117 H (46-116) U/L Troponin I < 0.017 (0.00-0.056) ng/mL Total Protein 7.9 (6.4-8.2) g/dl Albumin 4.2 (3.4-5.0) g/dl Globulin 3.7 gm/dL Albumin/Globulin Ratio 1.1 (1-2) 10/02/17 Range/Units 04:50 WBC (3.98-10.04) K/mm3 RBC (3.98-5.22) M/mm3 Hgb (11.2-15.7) gm/L Hct (34.1-44.9) % MCV (79.4-94.8) fl MCH (25.6-32.2) pg MCHC (32.2-35.5) g/dl RDW Std Deviation (36.4-46.3) fL Plt Count (182-369) K/mm3 MPV (9.4-12.3) fl Neutrophils % (Manual) (40-60) % Band Neutrophils % (0-10) % Lymphocytes % (Manual) (20-40) % Atypical Lymphs % % Monocytes % (Manual) (2-10) % Eosinophils % (Manual) (0.7-5.8) % Basophils % (Manual) (0.1-1.2) Platelet Estimate RBC Morph Comment PT (8.0-13.0) SECONDS INR APTT (22-36) SECONDS Sodium (136-145) mEq/L Potassium (3.5-5.1) mEq/L Chloride (98-107) mEq/L Carbon Dioxide (21-32) mEq/L Anion Gap (5-15) BUN (7-18) mg/dL Creatinine (0.55-1.02) mg/dL Est Cr Clr Drug Dosing Estimated GFR (MDRD) (>60) mL/min BUN/Creatinine Ratio (14-18) Glucose (83-115) mg/dL Calcium (8.5-10.1) mg/dL Total Bilirubin (0.2-1.0) mg/dL AST (15-37) U/L ALT (14-59) U/L Alkaline Phosphatase (46-116) U/L Troponin I < 0.017 (0.00-0.056) ng/mL Total Protein (6.4-8.2) g/dl Albumin (3.4-5.0) g/dl Globulin gm/dL Albumin/Globulin Ratio (1-2) Meds: Medications Generic Name Dose Route Start Last Admin Trade Name Freq PRN Reason Stop Dose Admin Nitroglycerin 0.4 mg 10/02/17 02:46 10/02/17 03:02 Nitrostat SL 0.4 mg Q5M PRN Administration Chest Pain Discontinued Medications Generic Name Dose Route Start Last Admin Trade Name Freq PRN Reason Stop Dose Admin Aspirin 324 mg 10/02/17 02:46 10/02/17 02:51 Aspirin PO 10/02/17 02:47 324 mg ONETIME ONE Administration - Re-Assessments/Exams Free Text/Narrative Re-Assessment/Exam: 10/02/17 06:11 Patient has done well here in the emergency room initially after she came in she reported fairly mild chest discomfort. She received sublingual nitroglycerin 2 and became pain-free and remained pain-free her blood pressure was elevated when she came in this improved. The patient was having complaints of a headache this thought to be muscle tension in origin. Patient's initial blood work chest x-ray were normal EKG showed no acute changes with an incomplete left bundle branch block. No evidence of ischemia. Because of the patient's ricks factors and the timing of the situation she was kept here for 2 and half hours after her first labs drawn for repeat troponin this was done and was negative as well. She would like to go home at this point. Discussed other options at this point the patient believes she had a stress test done about a year ago that was normal. 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 Departure - Departure Time of Disposition: 06:14 Disposition: Home, Self-Care 01 Clinical Impression: Chest pain, Muscle tension headache Referrals: PCP,None [Primary Care Provider] - Sandie Bhagat NP [ED Midlevel Provider] - Forms: ED Department Discharge Additional Instructions: Return to the emergency room with any questions problems worsening symptoms. Try one of those pillows we discussed to help with your tension headaches. Follow-up with your heart doctor in [place]. Discuss your most recent stress test and if you should have another. Continue current medications. - My Orders Last 24 Hours: My Active Orders 10/02/17 02:18 EKG Documentation Completion [RC] ASDIRECTED EKG 12 Lead [EK] Stat 10/02/17 02:46 Nitroglycerin [Nitrostat] 0.4 mg SL Q5M PRN - Assessment/Plan Last 24 Hours: My Active Orders 10/02/17 02:18 EKG Documentation Completion [RC] ASDIRECTED EKG 12 Lead [EK] Stat 10/02/17 02:46 Nitroglycerin [Nitrostat] 0.4 mg SL Q5M PRN
[2017-10-02] MEDS ORDERED: Aspirin 81 MG Tab.Chew PO ONE (02:46)
[2017-10-02] MEDS: Nitroglycerin 0.4 MG Tab.SL SL PRN ×2 (02:51→03:02)
[2017-10-02 03:03] VITALS: BP 126/65
--- NOTE | 2017-10-02 06:02 | CR ---
Chest: Portable view of the chest was obtained. Comparison: Prior chest x-ray of 07/23/17. Heart is mildly enlarged. 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 Lungs are hyperinflated but clear. Previous cholecystectomy is noted. Minimal scoliosis is noted within the spine with degenerative spurring and disc space narrowing. Impression: 1. Cardiomegaly. Other findings. Nothing acute is seen. Diagnostic code #3
== END 2017-10-02 06:24 | disposition home or self-care (01) ==
LOC: JD.ED 02:08
DX: R07.2 Precordial pain (principal); G44.209 Tension-type headache, unspecified, not intractable; E11.9 Type 2 diabetes mellitus without complications; I10 Essential (primary) hypertension; E78.5 Hyperlipidemia, unspecified; E78.00 Pure hypercholesterolemia, unspecified; Z91.041 Radiographic dye allergy status; Z88.5 Allergy status to narcotic agent; Z88.8 Allergy status to other drugs, medicaments and biological substances; Z79.899 Other long term (current) drug therapy; Z79.82 Long term (current) use of aspirin
CPT/HCPCS: 36415; 71045; 80053; 84484; 85025; 85610; 85730; 93005; 99285; A9270

== ENCOUNTER 2017-11-03 20:54 | Emergency (ER) | payer MEDICARE, OTHER ==
[2017-11-03 21:02] VITALS: BP 157/62
[2017-11-03] MEDS: diphenhydrAMINE 50 MG Cap PO ONE (21:31)
[2017-11-03] MEDS: Famotidine 20 MG Tab PO ONE (21:31)
--- NOTE | 2017-11-03 22:21 | EDM.PDOC ---
ED HPI GENERAL MEDICAL PROBLEM - General Chief Complaint: Allergic Reaction Stated Complaint: COUGHING/SHORT OF BREATH Time Seen by Provider: 11/03/17 21:11 Source of Information: Reports: Patient History Limitations: Reports: No Limitations - History of Present Illness INITIAL COMMENTS - FREE TEXT/NARRATIVE: Patient is a 77-year-old female who presents to the ED complaining of chest tightness, shortness of breath, difficulty swallowing, and the sensation she cannot take a deep breath. 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 Patient has been coughing throughout the course of the day. Mouth is dry with sensation swelling to the throat present. Throat is itchy and burning. She is normally on a albuterol inhaler but has lost it so unable to use. She has coughed so hard at times to cause herself to vomit. She denies any nausea, abdominal pain, diarrhea, and or rash present. She refuses to take prednisone due to history of GI bleeds. She has not taken any benadryl with onset of symptoms. She is concerned this allergic reaction episode has affected her heart. She has an extensive cardiac history. - Related Data Allergies Allergy/AdvReac Type Severity Reaction Status Date / Time Iodinated Contrast- Oral and Allergy Intermediate Swelling Verified 10/02/17 02: 21 IV Dye [Iodinated Contrast Media - IV Dye] acetaminophen [From Tylenol] Allergy Swelling Verified 10/02/17 02:21 morphine Allergy Hives Verified 10/02/17 02:21 fluticasone propionate AdvReac Tachycardia Verified 10/02/17 02:21 [From Advair Diskus] Penicillins AdvReac Anxiety Verified 10/02/17 02:21 prednisone AdvReac Gi Bleeding Verified 10/02/17 02:21 salmeterol xinafoate AdvReac Tachycardia Verified 10/02/17 02:21 [From Advair Diskus] Home Meds: Home Meds Benzonatate 100 mg PO TID PRN 08/13/14 [History] Calcium Carb/Vitamin D3/Vit K1 [Viactiv Soft Chew] 1 tab PO DAILY 08/13/14 [ History] Linagliptin [Tradjenta] 5 mg PO DAILY 08/13/14 [History] Lisinopril 20 mg PO DAILY 08/13/14 [History] Methyl B 12 Plus 400 mcg PO DAILY 08/13/14 [History] Metoprolol Tartrate [Lopressor] 75 mg PO BID 08/13/14 [History] Omeprazole 20 mg PO DAILY 08/13/14 [History] amLODIPine [Norvasc] 5 mg PO DAILY 08/13/14 [History] atorvaSTATin [Lipitor] 20 mg PO DAILY 08/13/14 [History] glipiZIDE [Glucotrol] 20 mg PO BID 08/13/14 [History] Aspirin [Adult Low Dose Aspirin EC] 81 mg PO DAILY 07/17/15 [History] Albuterol [IMW: Ventolin HFA] 2 puff INH Q6H #18 gm 05/03/17 [Rx] Past Medical History HEENT History: Reports: Allergic Rhinitis, Glaucoma Cardiovascular History: Reports: CAD, High Cholesterol, Hypertension Respiratory History: Reports: Asthma, COPD Gastrointestinal History: Reports: GERD, PUD Other Gastrointestinal History: Left inguinal hernia repair Neurological History: Reports: Headaches, Chronic, Vertigo Endocrine/Metabolic History: Reports: Diabetes, Type II - Past Surgical History HEENT Surgical History: Reports: Cataract Surgery, LASIK Cardiovascular Surgical History: Reports: Coronary Artery Bypass GI Surgical History: Reports: Cholecystectomy, Hernia, Inguinal Other Musculoskeletal Surgeries/Procedures:: Carpal tunnel repair. Social & Family History - Tobacco Use Smoking Status *Q: Never Smoker Second Hand Smoke Exposure: No - Caffeine Use Caffeine Use: Reports: Coffee, Soda - Alcohol Use Days Per Week of Alcohol Use: 0 - Recreational Drug Use Recreational Drug Use: No - Living Situation & Occupation Living situation: Reports: , with Spouse, with Family Occupation: Retired ED ROS ALLERGIC REACTION - Review of Systems Review Of Systems: ROS reveals no pertinent complaints other than HPI. ED EXAM GENERAL NO PERIP PULSE - Physical Exam Exam: See Below Exam Limited By: No Limitations General Appearance: Alert, WD/WN, Mild Distress (frequent coughing episodes. ) Ears: Hearing Grossly Normal Nose: Normal Inspection Throat/Mouth: Normal Inspection, Normal Oropharynx, Normal Voice, No Airway Compromise Head: Atraumatic, Normocephalic Neck: Normal Inspection, Supple, Non-Tender Respiratory/Chest: No Respiratory Distress, Lungs Clear, Normal Breath Sounds, No Accessory Muscle Use, Chest Non-Tender Cardiovascular: Normal Peripheral Pulses, Regular Rate, Rhythm, No Murmur GI/Abdominal: Normal Bowel Sounds, Soft, Non-Tender, No Organomegaly, No Distention Back Exam: Normal Inspection Neurological: Alert, Oriented, CN II-XII Intact, Normal Cognition, No Motor/ Sensory Deficits Psychiatric: Normal Affect, Normal Mood Skin Exam: Warm, Dry, Intact, Normal Color, No Rash Course - Vital Signs Last Recorded V/S: Last Vital Signs Temp 97.3 F 11/03/17 21:01 Pulse 66 11/03/17 21:01 Resp 24 H 11/03/17 21:01 BP 157/62 H 11/03/17 21:01 Pulse Ox 99 11/03/17 21:01 - Orders/Labs/Meds Labs: Laboratory Tests 11/03/17 11/03/17 11/03/17 Range/Units 21:33 21:33 21:33 WBC 5.76 (3.98-10.04) K/mm3 RBC 4.08 (3.98-5.22) M/mm3 Hgb 11.5 (11.2-15.7) gm/L Hct 35.2 (34.1-44.9) % MCV 86.3 (79.4-94.8) fl MCH 28.2 (25.6-32.2) pg MCHC 32.7 (32.2-35.5) g/dl RDW Std Deviation 48.6 H (36.4-46.3) fL Plt Count 187 (182-369) K/mm3 MPV 9.9 (9.4-12.3) fl Neut % (Auto) 55.7 (34.0-71.1) % Lymph % (Auto) 31.6 (19.3-51.7) % [place] % (Auto) 10.6 (4.7-12.5) % Eos % (Auto) 1.7 (0.7-5.8) Baso % (Auto) 0.2 (0.1-1.2) % Neut # (Auto) 3.21 (1.56-6.13) K/mm3 Lymph # (Auto) 1.82 (1.18-3.74) K/mm3 [place] # (Auto) 0.61 H (0.24-0.36) K/mm3 Eos # (Auto) 0.10 (0.04-0.36) K/mm3 Baso # (Auto) 0.01 (0.01-0.08) K/mm3 PT 9.9 (8.0-13.0) SECONDS INR 0.93 APTT 25 (22-36) SECONDS Sodium 141 (136-145) mEq/L Potassium 3.6 (3.5-5.1) mEq/L Chloride 105 (98-107) mEq/L Carbon Dioxide 26 (21-32) mEq/L Anion Gap 13.6 (5-15) BUN 17 (7-18) mg/dL Creatinine 0.9 (0.55-1.02) mg/dL Est Cr Clr Drug Dosing 38.25 mL/min Estimated GFR (MDRD) > 60 (>60) mL/min BUN/Creatinine Ratio 18.9 H (14-18) Glucose 226 H (83-115) mg/dL Calcium 8.2 L (8.5-10.1) mg/dL Total Bilirubin 0.4 (0.2-1.0) mg/dL AST 20 (15-37) U/L ALT 19 (14-59) U/L Alkaline Phosphatase 110 (46-116) U/L Troponin I < 0.017 (0.00-0.056) ng/mL Total Protein 7.2 (6.4-8.2) g/dl Albumin 3.9 (3.4-5.0) g/dl Globulin 3.3 gm/dL Albumin/Globulin Ratio 1.2 (1-2) 11/03/17 Range/Units 23:25 WBC (3.98-10.04) K/mm3 RBC (3.98-5.22) M/mm3 Hgb (11.2-15.7) gm/L Hct (34.1-44.9) % MCV (79.4-94.8) fl MCH (25.6-32.2) pg MCHC (32.2-35.5) g/dl RDW Std Deviation (36.4-46.3) fL Plt Count (182-369) K/mm3 MPV (9.4-12.3) fl Neut % (Auto) (34.0-71.1) % Lymph % (Auto) (19.3-51.7) % [place] % (Auto) (4.7-12.5) % Eos % (Auto) (0.7-5.8) Baso % (Auto) (0.1-1.2) % Neut # (Auto) (1.56-6.13) K/mm3 Lymph # (Auto) (1.18-3.74) K/mm3 [place] # (Auto) (0.24-0.36) K/mm3 Eos # (Auto) (0.04-0.36) K/mm3 Baso # (Auto) (0.01-0.08) K/mm3 PT (8.0-13.0) SECONDS INR APTT (22-36) SECONDS Sodium (136-145) mEq/L Potassium (3.5-5.1) mEq/L Chloride (98-107) mEq/L Carbon Dioxide (21-32) mEq/L Anion Gap (5-15) BUN (7-18) mg/dL Creatinine (0.55-1.02) mg/dL Est Cr Clr Drug Dosing mL/min Estimated GFR (MDRD) (>60) mL/min BUN/Creatinine Ratio (14-18) Glucose (83-115) mg/dL Calcium (8.5-10.1) mg/dL Total Bilirubin (0.2-1.0) mg/dL AST (15-37) U/L ALT (14-59) U/L Alkaline Phosphatase (46-116) U/L Troponin I < 0.017 (0.00-0.056) ng/mL Total Protein (6.4-8.2) g/dl Albumin (3.4-5.0) g/dl Globulin gm/dL Albumin/Globulin Ratio (1-2) Meds: Medications Discontinued Medications Generic Name Dose Route Start Last Admin Trade Name Freq PRN Reason Stop Dose Admin Diphenhydramine HCl 50 mg 11/03/17 21:21 11/03/17 21:31 Benadryl PO 11/03/17 21:22 50 mg ONETIME ONE Administration Famotidine 40 mg 11/03/17 21:21 11/03/17 21:31 Pepcid PO 11/03/17 21:22 40 mg ONETIME ONE Administration - Re-Assessments/Exams Free Text/Narrative Re-Assessment/Exam: Chest x-ray did not reveal any acute abnormalities. Reviewed with Dr. Nuno. EKG sinus rhythm with a left bundle branch block. Compared with previous EKG dated 10/02/17. Patient's vital signs are stable. She does not appear to be acute distress. Airway is patent. Will order Benadryl 50 mg by mouth along with Pepcid 40 mg by mouth. Patient refuses prednisone due to history of GI bleed. Initial lab studies will include CBC, checks x-ray one view, chem 14, coag studies, troponin, and EKG. Patient does have extensive cardiac issues. Labs reviewed: CBC essentially normal. Chemistry was essentially normal as well. Glucose elevated to 26. First troponin less than 0.017. 2240 Discussed lab results with the patient. Patient's symptoms have improved with the above therapies. She denies any chest tightness. She has mild sore throat due to coughing. Otherwise no issues with swallowing. With her cardiac history I am apprehensive to discharge patient home without trending troponin since she complained of chest discomfort. I have ordered 2nd troponin to be drawn at 1130. Patient agrees with plan. 11/03/17 23:58 2nd troponin negative. Patient continues to have no symptoms. Discharged home with instructions as documented. Departure - Departure Time of Disposition: 23:58 Disposition: Home, Self-Care 01 Condition: Good Clinical Impression: Allergic reaction Qualifiers: Encounter type: initial encounter Qualified Code(s): T78.40XA - Allergy, unspecified, initial encounter - Discharge Information Instructions: Allergies, Adult, [id number] Referrals: Sandie Bhagat [facility] [Primary Care Provider] - Forms: ED Department Discharge Additional Instructions: Refrain from ingesting coconuts. Take benadryl 25mg or 50mg PO every 6 hrs as needed for continued itchy throat sensation. In addition can take pepcid 40mg everyday for the next 4 days. Followup with PCP as needed in the next week for reevaluation. Return to the E.D. if you develop any new or worsening symptoms.
--- NOTE | 2017-11-04 07:16 | CR ---
Chest: Portable view of the chest was obtained. Comparison: Prior chest x-ray of 10/02/17. Heart size is slightly enlarged. Tortuous thoracic aorta is seen. Lungs are clear without acute parenchymal change. Previous sternotomy is noted. Prior cholecystectomy is noted. Minimal degenerative change is seen within the spine. Impression: 1. Incidental findings. Nothing acute is seen. Diagnostic code #2
== END 2017-11-04 00:04 | disposition home or self-care (01) ==
LOC: JD.ED 20:54
DX: T78.1XXA Other adverse food reactions, not elsewhere classified, initial encounter (principal); R06.02 Shortness of breath; R05 Cough; R13.10 Dysphagia, unspecified; I10 Essential (primary) hypertension; E78.00 Pure hypercholesterolemia, unspecified; E11.9 Type 2 diabetes mellitus without complications; K21.9 Gastro-esophageal reflux disease without esophagitis; Z79.82 Long term (current) use of aspirin; Z79.899 Other long term (current) drug therapy; Z79.84 Long term (current) use of oral hypoglycemic drugs; Z88.0 Allergy status to penicillin; Z88.5 Allergy status to narcotic agent; Z88.6 Allergy status to analgesic agent; Z88.8 Allergy status to other drugs, medicaments and biological substances
CPT/HCPCS: 36415; 71045; 80053; 84484; 85025; 85610; 85730; 93005; 99285; A9270

== ENCOUNTER 2017-12-29 17:07 | Emergency (ER) | payer MEDICARE, OTHER ==
[2017-12-29 17:21] VITALS: BP 166/84
[2017-12-29] MEDS ORDERED: Aspirin 325 MG Tab.EC PO ONE (17:49)
[2017-12-29] MEDS ORDERED: Sodium Chloride 0.9% 10 ML Syringe FLUSH PRN (17:49)
--- NOTE | 2017-12-29 18:04 | EDM.PDOC ---
ED HPI GENERAL MEDICAL PROBLEM - General Chief Complaint: Chest Pain Stated Complaint: CHEST PAINS Time Seen by Provider: 12/29/17 17:30 Source of Information: Reports: Patient, Old Records History Limitations: Reports: No Limitations - History of Present Illness INITIAL COMMENTS - FREE TEXT/NARRATIVE: 77-year-old female presents for evaluation and treatment of chest pain. Patient reports that the chest pain is located on the left anterior chest. She states that she's been having episodic chest pain all day today. States it started this morning when she woke around 10 AM. States that she had difficulty sleeping last night. Reports that around 11:00 this morning she had cold sweats. States that she had a funny feeling in her left arm. She reports associated symptoms of palpitations, weakness, headaches, discomfort in her head and neck, decreased appetite and malaise. She reports that she else short of breath earlier but this has now resolved. She also felt nauseous earlier but this has also resolved. Currently denies any chest pain or any odd feeling. She did take 2 aspirin earlier today. She denies any fevers or cough. Patient reports that she always has swelling in her left leg. This is from a vein harvest for coronary artery bypass. Reports no worsening swelling in the legs or any pain in the legs. She reports she has been struggling with allergies lately and was recently started on Singulair. No recent travel. Patient reports that she does see cardiology in [place]. Last visit was earlier this year. She states she has had a coronary artery bypass. Primary care provider in [place] is Sandie Bhagat Chest Pain Score (Numeric/FACES): 6 - Related Data Allergies Allergy/AdvReac Type Severity Reaction Status Date / Time Iodinated Contrast- Oral and Allergy Intermediate Swelling Verified 12/29/17 17: 18 IV Dye [Iodinated Contrast Media - IV Dye] acetaminophen [From Tylenol] Allergy Swelling Verified 12/29/17 17:18 morphine Allergy Hives Verified 12/29/17 17:18 fluticasone propionate AdvReac Tachycardia Verified 12/29/17 17:18 [From Advair Diskus] Penicillins AdvReac Anxiety Verified 12/29/17 17:18 prednisone AdvReac Gi Bleeding Verified 12/29/17 17:18 salmeterol xinafoate AdvReac Tachycardia Verified 12/29/17 17:18 [From Advair Diskus] Home Meds: Home Meds Benzonatate 100 mg PO TID PRN 08/13/14 [History] Calcium Carb/Vitamin D3/Vit K1 [Viactiv Soft Chew] 1 tab PO DAILY 08/13/14 [ History] Linagliptin [Tradjenta] 5 mg PO DAILY 08/13/14 [History] Lisinopril 20 mg PO DAILY 08/13/14 [History] Methyl B 12 Plus 400 mcg PO DAILY 08/13/14 [History] Metoprolol Tartrate [Lopressor] 75 mg PO BID 08/13/14 [History] Omeprazole 20 mg PO DAILY 08/13/14 [History] amLODIPine [Norvasc] 5 mg PO DAILY 08/13/14 [History] atorvaSTATin [Lipitor] 20 mg PO DAILY 08/13/14 [History] glipiZIDE [Glucotrol] 20 mg PO BID 08/13/14 [History] Aspirin [Adult Low Dose Aspirin EC] 81 mg PO DAILY 07/17/15 [History] Albuterol [IMW: Ventolin HFA] 2 puff INH Q6H #18 gm 05/03/17 [Rx] Cetirizine [ZyrTEC] 10 mg PO DAILY 12/29/17 [History] Furosemide [Lasix] 20 mg PO DAILY #10 tab 12/29/17 [Rx] Montelukast [Singulair] 10 mg PO BEDTIME 12/29/17 [History] Omeprazole 20 mg PO DAILY #10 cap.sr 12/29/17 [Rx] Potassium Chloride 20 meq PO DAILY #10 tablet.er 12/29/17 [Rx] Past Medical History HEENT History: Reports: Allergic Rhinitis, Glaucoma Cardiovascular History: Reports: CAD, High Cholesterol, Hypertension Respiratory History: Reports: Asthma, COPD Gastrointestinal History: Reports: GERD, PUD Other Gastrointestinal History: Left inguinal hernia repair Neurological History: Reports: Headaches, Chronic, Vertigo Endocrine/Metabolic History: Reports: Diabetes, Type II - Past Surgical History HEENT Surgical History: Reports: Cataract Surgery, LASIK Cardiovascular Surgical History: Reports: Coronary Artery Bypass GI Surgical History: Reports: Cholecystectomy, Hernia, Inguinal Other Musculoskeletal Surgeries/Procedures:: Carpal tunnel repair. Social & Family History - Tobacco Use Smoking Status *Q: Never Smoker - Caffeine Use Caffeine Use: Reports: Coffee, Soda - Living Situation & Occupation Living situation: Reports: , with Spouse, with Family Occupation: Retired ED ROS GENERAL - Review of Systems Review Of Systems: See Below Constitutional: Reports: Decreased Appetite. Denies: Fever Respiratory: Reports: Shortness of Breath (Earlier, none.). Denies: Cough Cardiovascular: Reports: Chest Pain (Earlier, none now.), Palpitations. Denies : Lightheadedness GI/Abdominal: Reports: Nausea (earlier, none now). Denies: Abdominal Pain, Vomiting Neurological: Denies: Dizziness, Syncope ED EXAM, GENERAL - Physical Exam Exam: See Below Exam Limited By: No Limitations General Appearance: Alert, WD/WN, No Apparent Distress Eye Exam: Bilateral Eye: Normal Inspection Ears: Normal External Exam Nose: Normal Inspection Throat/Mouth: Normal Inspection, Normal Voice, No Airway Compromise Respiratory/Chest: No Respiratory Distress, Lungs Clear, Normal Breath Sounds, Other (tenderness to palpation to the left anterior chest intercostal spaces 3 & 4) Cardiovascular: Normal Peripheral Pulses, Regular Rate, Rhythm, No Murmur, No Rub Neurological: Alert, Oriented, Normal Cognition Psychiatric: Normal Affect, Normal Mood Skin Exam: Warm, Dry, Normal Color EKG INTERPRETATION EKG Date: 12/29/17 Time: 17:20 Rhythm: NSR Rate (Beats/Min): 68 [place]: Normal P-Wave: Present QRS: LBBB ST-T: Normal QT: Normal Comparison: No Change EKG Interpretation Comments: NSR at 68 bpm. LBBB. Reviewed by myself and Dr. Mclean. Course - Vital Signs Last Recorded V/S: Last Vital Signs Temp 36.8 C 12/29/17 17:18 Pulse 66 12/29/17 17:18 Resp 25 H 12/29/17 17:18 BP 166/84 H 12/29/17 17:18 Pulse Ox 98 12/29/17 17:18 - Orders/Labs/Meds Labs: Laboratory Tests 12/29/17 12/29/17 12/29/17 Range/Units 17:45 17:45 17:45 WBC 5.00 (3.98-10.04) K/mm3 RBC 4.16 (3.98-5.22) M/mm3 Hgb 11.6 (11.2-15.7) gm/L Hct 35.8 (34.1-44.9) % MCV 86.1 (79.4-94.8) fl MCH 27.9 (25.6-32.2) pg MCHC 32.4 (32.2-35.5) g/dl RDW Std Deviation 45.7 (36.4-46.3) fL Plt Count 182 (182-369) K/mm3 MPV 9.9 (9.4-12.3) fl Neut % (Auto) 61.2 (34.0-71.1) % Lymph % (Auto) 24.0 (19.3-51.7) % [place] % (Auto) 13.2 H (4.7-12.5) % Eos % (Auto) 1.2 (0.7-5.8) Baso % (Auto) 0.2 (0.1-1.2) % Neut # (Auto) 3.06 (1.56-6.13) K/mm3 Lymph # (Auto) 1.20 (1.18-3.74) K/mm3 [place] # (Auto) 0.66 H (0.24-0.36) K/mm3 Eos # (Auto) 0.06 (0.04-0.36) K/mm3 Baso # (Auto) 0.01 (0.01-0.08) K/mm3 PT 10.2 (9.5-12.1) SECONDS INR 0.93 APTT 24 (24-31) SECONDS Sodium 141 (136-145) mEq/L Potassium 3.9 (3.5-5.1) mEq/L Chloride 105 (98-107) mEq/L Carbon Dioxide 25 (21-32) mEq/L Anion Gap 14.9 (5-15) BUN 18 (7-18) mg/dL Creatinine 0.9 (0.55-1.02) mg/dL Est Cr Clr Drug Dosing 36.41 mL/min Estimated GFR (MDRD) > 60 (>60) mL/min BUN/Creatinine Ratio 20.0 H (14-18) Glucose 174 H (83-115) mg/dL Calcium 8.5 (8.5-10.1) mg/dL Total Bilirubin 0.5 (0.2-1.0) mg/dL AST 16 (15-37) U/L ALT 21 (14-59) U/L Alkaline Phosphatase 102 (46-116) U/L Troponin I < 0.017 (0.00-0.056) ng/mL NT-Pro-B Natriuret Pep (0-450) pg/mL Total Protein 7.2 (6.4-8.2) g/dl Albumin 3.8 (3.4-5.0) g/dl Globulin 3.4 gm/dL Albumin/Globulin Ratio 1.1 (1-2) 12/29/17 12/29/17 Range/Units 20:05 20:05 WBC (3.98-10.04) K/mm3 RBC (3.98-5.22) M/mm3 Hgb (11.2-15.7) gm/L Hct (34.1-44.9) % MCV (79.4-94.8) fl MCH (25.6-32.2) pg MCHC (32.2-35.5) g/dl RDW Std Deviation (36.4-46.3) fL Plt Count (182-369) K/mm3 MPV (9.4-12.3) fl Neut % (Auto) (34.0-71.1) % Lymph % (Auto) (19.3-51.7) % [place] % (Auto) (4.7-12.5) % Eos % (Auto) (0.7-5.8) Baso % (Auto) (0.1-1.2) % Neut # (Auto) (1.56-6.13) K/mm3 Lymph # (Auto) (1.18-3.74) K/mm3 [place] # (Auto) (0.24-0.36) K/mm3 Eos # (Auto) (0.04-0.36) K/mm3 Baso # (Auto) (0.01-0.08) K/mm3 PT (9.5-12.1) SECONDS INR APTT (24-31) SECONDS Sodium (136-145) mEq/L Potassium (3.5-5.1) mEq/L Chloride (98-107) mEq/L Carbon Dioxide (21-32) mEq/L Anion Gap (5-15) BUN (7-18) mg/dL Creatinine (0.55-1.02) mg/dL Est Cr Clr Drug Dosing mL/min Estimated GFR (MDRD) (>60) mL/min BUN/Creatinine Ratio (14-18) Glucose (83-115) mg/dL Calcium (8.5-10.1) mg/dL Total Bilirubin (0.2-1.0) mg/dL AST (15-37) U/L ALT (14-59) U/L Alkaline Phosphatase (46-116) U/L Troponin I < 0.017 (0.00-0.056) ng/mL NT-Pro-B Natriuret Pep 272 (0-450) pg/mL Total Protein (6.4-8.2) g/dl Albumin (3.4-5.0) g/dl Globulin gm/dL Albumin/Globulin Ratio (1-2) Meds: Medications Discontinued Medications Generic Name Dose Route Start Last Admin Trade Name Freq PRN Reason Stop Dose Admin Aspirin 325 mg 12/29/17 17:49 12/29/17 17:54 Ecotrin PO 12/29/17 17:50 325 mg ONETIME ONE Administration Furosemide 20 mg 12/29/17 19:36 12/29/17 19:46 Lasix IVPUSH 12/29/17 19:37 20 mg NOW ONE Administration Sodium Chloride 10 ml 12/29/17 17:49 12/29/17 17:51 Saline Flush FLUSH 10 ml ASDIRECTED PRN Administration Keep Vein Open - Radiology Interpretation Free Text/Narrative:: Chest: Frontal view of the chest was obtained. Comparison: Prior chest x-ray of 11/03/17. Heart is enlarged. Prior sternotomy for CABG. Pulmonary vessels are minimally increased. Lungs otherwise are clear. Bony structures are grossly intact. Impression: 1. Cardiomegaly with mild pulmonary vascular congestion which is slightly more prominent than on previous study. - Re-Assessments/Exams Free Text/Narrative Re-Assessment/Exam: 12/29/17 21:23 I reviewed the chest xray, ekg and labs with the patient. She has not had any chest pain or shortness of breath since entering the ER. Repeat trop is negative. Patient is very tender to the left chest wall. Chest pain is likely chest wall in origin. Patient talks about how she is getting globus sensation and discomfort while eating. Allergies could possibly be due to reflux. Recommend EDG to further evaluate. This can be done outpatient. Will discharge home at this time. Will start omeprazole for suspected GERD. Will start lasix and potassium for mild congestion seen on cxr. Follow-up with PCP as planned. Discharge instructions as documented. Departure - Departure Time of Disposition: 21:24 Disposition: Home, Self-Care 01 Condition: Fair Clinical Impression: GERD (gastroesophageal reflux disease), Chest wall pain Prescriptions: Furosemide [Lasix] 20 mg PO DAILY #10 tab Omeprazole 20 mg PO DAILY #10 cap.sr Potassium Chloride 20 meq PO DAILY #10 tablet.er Instructions: Food Choices for Gastroesophageal Reflux Disease, Adult, Chest Wall Pain, [id number] Referrals: Sandie Bhagat, [facility] [Primary Care Provider] - Forms: ED Department Discharge Additional Instructions: Take the omeprazole 1 tab daily. Take the Lasix, water pills, 1 tab daily. This medication can lower potassium; start potassium 1 tab daily. Take Lasix in the morning. Follow-up with your primary care provider tomorrow as planned. May want to discuss and upper endoscopy. Please return to ER if your symptoms change or worsen. the
[2017-12-29] MEDS ORDERED: Furosemide 40 MG/4 ML VIAL IVPUSH ONE (19:36)
--- NOTE | 2017-12-30 08:32 | CR ---
Chest: Frontal view of the chest was obtained. Comparison: Prior chest x-ray of 11/03/17. Heart is enlarged. Prior sternotomy for CABG. Pulmonary vessels are minimally increased. Lungs otherwise are clear. Bony structures are grossly intact. Impression: 1. Cardiomegaly with mild pulmonary vascular congestion which is slightly more prominent than on previous study. Diagnostic code #3
== END 2017-12-29 21:44 | disposition home or self-care (01) ==
LOC: JD.ED 17:07
DX: K21.9 Gastro-esophageal reflux disease without esophagitis (principal); I10 Essential (primary) hypertension; J44.9 Chronic obstructive pulmonary disease, unspecified; E11.9 Type 2 diabetes mellitus without complications; Z91.041 Radiographic dye allergy status; Z88.0 Allergy status to penicillin; Z88.5 Allergy status to narcotic agent; Z79.899 Other long term (current) drug therapy
CPT/HCPCS: 36415; 71045; 80053; 83880; 84484; 85025; 85610; 85730; 93005; 96374; 99285; A9270; J1940; J7050

== ENCOUNTER 2018-08-07 04:23 | Emergency (ER) | payer MEDICARE, OTHER ==
[2018-08-07 04:33] VITALS: BP 163/83
[2018-08-07] MEDS ORDERED: Sodium Chloride 0.9% 10 ML Syringe FLUSH PRN (04:41)
--- NOTE | 2018-08-07 04:47 | EDM.PDOC ---
ED HPI GENERAL MEDICAL PROBLEM - General Chief Complaint: Chest Pain Stated Complaint: CHEST PAIN Time Seen by Provider: 08/07/18 04:30 Source of Information: Reports: Patient History Limitations: Reports: No Limitations - History of Present Illness INITIAL COMMENTS - FREE TEXT/NARRATIVE: The patient presents with chest pain. She says this started a couple days ago. The pain is sharp and it is in the left chest. It comes and goes. This morning when she woke up it was stronger. The pain would take her breath away. She took some aspirin and it was better. She has no fever, chills, cough, or abdominal pain. She has a history of CAD, hypertension and hypercholesterolemia. She does not smoke. Onset: Sudden Duration: Day(s): Location: Reports: Chest Quality: Reports: Sharp Severity: Moderate Improves with: Reports: None Worsens with: Reports: None Associated Symptoms: Reports: Chest Pain, Shortness of Breath. Denies: Cough, Fever/Chills, Headaches, Nausea/Vomiting Left Chest Pain Score (Numeric/FACES): 6 - Related Data Allergies Allergy/AdvReac Type Severity Reaction Status Date / Time Iodinated Contrast- Oral and Allergy Intermediate Swelling Verified 08/07/18 04: 45 IV Dye [Iodinated Contrast Media - IV Dye] acetaminophen [From Tylenol] Allergy Swelling Verified 08/07/18 04:45 morphine Allergy Hives Verified 08/07/18 04:45 fluticasone propionate AdvReac Tachycardia Verified 08/07/18 04:45 [From Advair Diskus] Penicillins AdvReac Anxiety Verified 08/07/18 04:45 prednisone AdvReac Gi Bleeding Verified 08/07/18 04:45 salmeterol xinafoate AdvReac Tachycardia Verified 08/07/18 04:45 [From Advair Diskus] Home Meds: Home Meds Benzonatate 100 mg PO TID PRN 08/13/14 [History] Metoprolol Tartrate [Lopressor] 100 mg PO BID 08/13/14 [History] amLODIPine [Norvasc] 5 mg PO DAILY 08/13/14 [History] atorvaSTATin [Lipitor] 20 mg PO DAILY 08/13/14 [History] glipiZIDE [Glucotrol] 20 mg PO BID 08/13/14 [History] Aspirin [Adult Low Dose Aspirin EC] 81 mg PO DAILY 07/17/15 [History] Omeprazole 20 mg PO DAILY #10 cap.sr 12/29/17 [Rx] Potassium Chloride 20 meq PO DAILY #10 tablet.er 12/29/17 [Rx] Cyanocobalamin (Vitamin B-12) [B-12] 1,000 mg PO DAILY 08/07/18 [History] Furosemide [Lasix] 20 mg PO DAILY 08/07/18 [History] Losartan [Cozaar] 100 mg PO DAILY 08/07/18 [History] Past Medical History HEENT History: Reports: Allergic Rhinitis, Glaucoma Cardiovascular History: Reports: CAD, High Cholesterol, Hypertension Respiratory History: Reports: Asthma, COPD Gastrointestinal History: Reports: GERD, PUD Other Gastrointestinal History: Left inguinal hernia repair Neurological History: Reports: Headaches, Chronic, Vertigo Endocrine/Metabolic History: Reports: Diabetes, Type II - Past Surgical History HEENT Surgical History: Reports: Cataract Surgery, LASIK Cardiovascular Surgical History: Reports: Coronary Artery Bypass GI Surgical History: Reports: Cholecystectomy, Hernia, Inguinal Other Musculoskeletal Surgeries/Procedures:: Carpal tunnel repair. Social & Family History - Caffeine Use Caffeine Use: Reports: Coffee, Soda - Living Situation & Occupation Living situation: Reports: , with Spouse, with Family Occupation: Retired ED ROS GENERAL - Review of Systems Review Of Systems: See Below Constitutional: Reports: No Symptoms HEENT: Reports: No Symptoms Respiratory: Reports: Shortness of Breath Cardiovascular: Reports: Chest Pain Endocrine: Reports: No Symptoms GI/Abdominal: Reports: No Symptoms : Reports: No Symptoms Musculoskeletal: Reports: No Symptoms Skin: Reports: No Symptoms ED EXAM, GENERAL - Physical Exam Exam: See Below Exam Limited By: No Limitations General Appearance: Alert, No Apparent Distress Ears: Normal External Exam Nose: Normal Inspection Head: Atraumatic, Normocephalic Neck: Normal Inspection Respiratory/Chest: No Respiratory Distress, Lungs Clear, Normal Breath Sounds Cardiovascular: Regular Rate, Rhythm, No Edema, No Murmur GI/Abdominal: Soft, Non-Tender, No Organomegaly, No Mass Back Exam: Normal Inspection Extremities: Normal Inspection EKG INTERPRETATION EKG Date: 08/07/18 Time: 04:35 Rhythm: Other (sinus bradycardia) Rate (Beats/Min): 58 [place]: LAD-Left [place] Deviation P-Wave: Present QRS: LBBB ST-T: Normal QT: Normal Course - Vital Signs Last Recorded V/S: Last Vital Signs Temp 97.2 F 08/07/18 04:29 Pulse 61 08/07/18 04:29 Resp 16 08/07/18 04:29 BP 163/83 H 08/07/18 04:29 Pulse Ox 100 08/07/18 04:29 - Orders/Labs/Meds Orders: Active Orders 24 hr Category Date Time Status Cardiac Monitoring [RC] . DIRECTED Care 08/07/18 04:41 Active EKG Documentation Completion [RC] STAT Care 08/07/18 04:41 Active Peripheral IV Care [RC] . DIRECTED Care 08/07/18 04:42 Active Chest 1V Frontal [CR] Stat Exams 08/07/18 04:42 Taken Sodium Chloride 0.9% [Saline Flush] Med 08/07/18 04:41 Active 10 ml FLUSH ASDIRECTED PRN Peripheral IV Insertion Adult [OM.PC] Stat Oth 08/07/18 04:41 Ordered Medication Orders Sodium Chloride (Saline Flush) 10 ml FLUSH ASDIRECTED PRN PRN Reason: Keep Vein Open Labs: Laboratory Tests 08/07/18 08/07/18 Range/Units 04:30 04:30 WBC 5.77 (3.98-10.04) K/mm3 RBC 4.19 (3.98-5.22) M/mm3 Hgb 11.7 (11.2-15.7) gm/L Hct 36.0 (34.1-44.9) % MCV 85.9 (79.4-94.8) fl MCH 27.9 (25.6-32.2) pg MCHC 32.5 (32.2-35.5) g/dl RDW Std Deviation 46.2 (36.4-46.3) fL Plt Count 181 L (182-369) K/mm3 MPV 10.0 (9.4-12.3) fl Neut % (Auto) 50.7 (34.0-71.1) % Lymph % (Auto) 35.2 (19.3-51.7) % [place] % (Auto) 12.7 H (4.7-12.5) % Eos % (Auto) 1.2 (0.7-5.8) Baso % (Auto) 0.2 (0.1-1.2) % Neut # (Auto) 2.93 (1.56-6.13) K/mm3 Lymph # (Auto) 2.03 (1.18-3.74) K/mm3 [place] # (Auto) 0.73 H (0.24-0.36) K/mm3 Eos # (Auto) 0.07 (0.04-0.36) K/mm3 Baso # (Auto) 0.01 (0.01-0.08) K/mm3 Sodium 138 (136-145) mEq/L Potassium 3.8 (3.5-5.1) mEq/L Chloride 104 (98-107) mEq/L Carbon Dioxide 26 (21-32) mEq/L Anion Gap 11.8 (5-15) BUN 26 H (7-18) mg/dL Creatinine 1.2 H (0.55-1.02) mg/dL Est Cr Clr Drug Dosing 28.68 mL/min Estimated GFR (MDRD) 43 (>60) mL/min BUN/Creatinine Ratio 21.7 H (14-18) Glucose 176 H (83-115) mg/dL Calcium 8.4 L (8.5-10.1) mg/dL Total Bilirubin 0.3 (0.2-1.0) mg/dL AST 20 (15-37) U/L ALT 24 (14-59) U/L Alkaline Phosphatase 142 H (46-116) U/L Troponin I < 0.017 (0.00-0.056) ng/mL Total Protein 7.8 (6.4-8.2) g/dl Albumin 4.1 (3.4-5.0) g/dl Globulin 3.7 gm/dL Albumin/Globulin Ratio 1.1 (1-2) Meds: Medications Generic Name Dose Route Start Last Admin Trade Name Freq PRN Reason Stop Dose Admin Sodium Chloride 10 ml 08/07/18 04:41 Saline Flush FLUSH ASDIRECTED PRN Keep Vein Open - Re-Assessments/Exams Free Text/Narrative Re-Assessment/Exam: 08/07/18 04:46 I ordered an IV saline lock, EKG, CXR and labs. The patient took some aspirin today. She feels better now. 08/07/18 05:56 Her EKG shows a sinus bradycardia with LBBB. That is old. Her CXR looks good. Her CBC looks good. Her creatinine was a little elevated at 1.2. Her troponin is negative. I feel this is more chest wall pain. I will discharge her home. Departure - Departure Time of Disposition: 06:00 Disposition: Home, Self-Care 01 Condition: Good Clinical Impression: Chest pain Referrals: Sandie Bhagat, CUSTOMER STRATEGY MANAGER [Primary Care Provider] - 1 Week Forms: ED Department Discharge Additional Instructions: Take your medication as prescribed. Take motrin as needed for pain. Please return if you are worse. - My Orders Last 24 Hours: My Active Orders 08/07/18 04:41 Cardiac Monitoring [RC] . DIRECTED EKG Documentation Completion [RC] STAT Sodium Chloride 0.9% [Saline Flush] 10 ml FLUSH ASDIRECTED PRN Peripheral IV Insertion Adult [OM.PC] Stat 08/07/18 04:42 Peripheral IV Care [RC] . DIRECTED Chest 1V Frontal [CR] Stat - Assessment/Plan Last 24 Hours: My Active Orders 08/07/18 04:41 Cardiac Monitoring [RC] . DIRECTED EKG Documentation Completion [RC] STAT Sodium Chloride 0.9% [Saline Flush] 10 ml FLUSH ASDIRECTED PRN Peripheral IV Insertion Adult [OM.PC] Stat 08/07/18 04:42 Peripheral IV Care [RC] . DIRECTED Chest 1V Frontal [CR] Stat
--- NOTE | 2018-08-07 09:02 | CR ---
Chest: Frontal view of the chest was obtained. Comparison: Prior chest x-ray of 04/30/18. Heart is slightly enlarged. Previous sternotomy is noted. Lungs are clear. Bony structures are grossly intact. Impression: 1. Nothing acute is seen on frontal chest x-ray. Diagnostic code #2
== END 2018-08-07 06:30 | disposition home or self-care (01) ==
LOC: JD.ED 04:23
DX: R07.9 Chest pain, unspecified (principal); I10 Essential (primary) hypertension; J44.9 Chronic obstructive pulmonary disease, unspecified; E78.00 Pure hypercholesterolemia, unspecified; Z79.899 Other long term (current) drug therapy
CPT/HCPCS: 36415; 71045; 71045-26; 80053; 84484; 85025; 93005; 99285-25

== ENCOUNTER 2019-10-09 20:57 | Emergency (ER) | payer MEDICARE, OTHER ==
[2019-10-09 21:26] VITALS: BP 143/72; PULSE 74
--- NOTE | 2019-10-09 22:09 | EDM.PDOC ---
ED HPI GENERAL MEDICAL PROBLEM - General Chief Complaint: Respiratory Problem Stated Complaint: COUGH/CONGESTION Time Seen by Provider: 10/09/19 21:47 Source of Information: Reports: Patient, Family () History Limitations: Reports: No Limitations - History of Present Illness INITIAL COMMENTS - FREE TEXT/NARRATIVE: Mrs. Nathan is a very pleasant 79-year-old woman with a past medical history significant for coronary artery disease and possible asthma or COPD (chart indicates both, but when asked about it, she stated that she underwent PFTs that showed no pulmonary disease), who states that she was seen by her PCP in the clinic this past 10/05/2019, at which time she received a pneumonia vaccine. Since then, she states that she has developed a cough with dyspnea, chest soreness from coughing, a sore throat, and a headache. She developed body aches on Friday or , 10/06/2019 or 10/07/2019. She states that he has had some wheezing, and that both her cough and wheezing are made worse when she is supine. She has been using her albuterol inhaler with no significant improvement in her symptoms. She presumed that she had a fever, but acknowledges that she has not checked her temperature, and here in the ED, she is afebrile. No nausea, vomiting, constipation, diarrhea, abdominal pain, or urinary symptoms. The patient states that she is allergic to both Tylenol and ibuprofen, therefore has not taken either. The patient's PCP is Sandie Bhagat NP. Her Night Guard, whose name she does not recall, is at [facility]. She received an influenza vaccine this season. Chest Pain Score (Numeric/FACES): 5 - Related Data Allergies Allergy/AdvReac Type Severity Reaction Status Date / Time Iodinated Contrast Media Allergy Intermediate Swelling Verified 03/03/19 17:11 [Iodinated Contrast Media - IV Dye] acetaminophen [From Tylenol] Allergy Swelling Verified 03/03/19 17:11 morphine Allergy Hives Verified 03/03/19 17:11 fluticasone propionate AdvReac Tachycardia Verified 03/03/19 17:11 [From Advair Diskus] Penicillins AdvReac Anxiety Verified 03/03/19 17:11 prednisone AdvReac Gi Bleeding Verified 03/03/19 17:11 salmeterol xinafoate AdvReac Tachycardia Verified 03/03/19 17:11 [From Advair Diskus] Home Meds: Home Meds Benzonatate 200 mg PO TID PRN 08/13/14 [History] Metoprolol Tartrate [Lopressor] 100 mg PO BID 08/13/14 [History] amLODIPine [Norvasc] 5 mg PO DAILY 08/13/14 [History] atorvaSTATin [Lipitor] 20 mg PO DAILY 08/13/14 [History] glipiZIDE [Glucotrol] 20 mg PO BID 08/13/14 [History] Aspirin [Adult Low Dose Aspirin EC] 81 mg PO DAILY 07/17/15 [History] Omeprazole 20 mg PO DAILY #10 cap.sr 12/29/17 [Rx] Potassium Chloride 20 meq PO DAILY #10 tablet.er 12/29/17 [Rx] Cyanocobalamin (Vitamin B-12) [B-12] 1,000 mg PO DAILY 08/07/18 [History] Furosemide [Lasix] 20 mg PO DAILY 08/07/18 [History] Losartan [Cozaar] 100 mg PO DAILY 08/07/18 [History] Linagliptin [Tradjenta] 5 mg PO DAILY 03/03/19 [History] Olopatadine HCl [Pazeo] 1 drop EYEBOTH DAILY 03/03/19 [History] Past Medical History HEENT History: Reports: Allergic Rhinitis, Glaucoma Cardiovascular History: Reports: CAD, High Cholesterol, Hypertension Respiratory History: Reports: Asthma (unsure), COPD (unsure) Gastrointestinal History: Reports: GERD, PUD Neurological History: Reports: Vertigo Endocrine/Metabolic History: Reports: Diabetes, Type II - Past Surgical History HEENT Surgical History: Reports: Cataract Surgery (bilateral), LASIK (bilateral) Cardiovascular Surgical History: Reports: Coronary Artery Bypass (x 3 vessel, 1995) GI Surgical History: Reports: Hernia, Inguinal (left) Musculoskeletal Surgical History: Reports: Carpal Tunnel (bilateral), Other ( See Below) (Bilateral tarsal tunnel release) Social & Family History - Family History Family Medical History: Noncontributory - Tobacco Use Smoking Status *Q: Never Smoker - Caffeine Use Caffeine Use: Reports: Coffee, Soda, Tea - Alcohol Use Alcohol Use History: No - Recreational Drug Use Recreational Drug Use: No - Living Situation & Occupation Living situation: Reports: , with Spouse, with Family (disabled son) Occupation: Retired ED ROS GENERAL - Review of Systems Review Of Systems: Comprehensive ROS is negative, except as noted in HPI. Musculoskeletal: Reports: Back Pain Neurological: Reports: Headache ED EXAM, GENERAL - Physical Exam Exam: See Below Exam Limited By: No Limitations General Appearance: Alert, WD/WN, No Apparent Distress, Other (coughs frequently ) Eye Exam: Bilateral Eye: EOMI, Normal Inspection Ears: Normal External Exam, Hearing Grossly Normal Nose: Normal Inspection Throat/Mouth: Normal Inspection, Normal Lips, Normal Voice, No Airway Compromise Head: Atraumatic, Normocephalic Neck: Normal Inspection, Full Range of Motion Respiratory/Chest: No Respiratory Distress, No Accessory Muscle Use, Rhonchi ( made worse when supine), Wheezing (mild - made worse when supine). No: Decreased Breath Sounds, Crackles, Stridor, Prolonged Expiration Cardiovascular: Normal Peripheral Pulses, Regular Rate, Rhythm, No Edema, No Gallop, No JVD, No Murmur, No Rub Peripheral Pulses: 4+: Radial (L), Radial (R) GI/Abdominal: Normal Bowel Sounds, Soft, Non-Tender, No Organomegaly, No Distention, No Abnormal Bruit, No Mass (Female) Exam: Deferred Rectal (Female) Exam: Deferred Back Exam: Normal Inspection, Full Range of Motion, NT Extremities: Normal Inspection, Normal Range of Motion, No Pedal Edema, Normal Capillary Refill Neurological: Alert, Oriented, Normal Cognition, No Motor/Sensory Deficits Psychiatric: Normal Affect Skin Exam: Warm, Dry, Intact, Normal Color, No Rash Course - Vital Signs Last Recorded V/S: Last Vital Signs Temp 36.7 C 10/09/19 21:23 Pulse 74 10/09/19 21:23 Resp 28 H 10/09/19 21:23 BP 143/72 H 10/09/19 21:23 Pulse Ox 93 L 10/09/19 21:23 - Orders/Labs/Meds Orders: Active Orders 24 hr Category Date Time Status Chest 2V [CR] Stat Exams 10/09/19 22:06 Taken - Re-Assessments/Exams Free Text/Narrative Re-Assessment/Exam: 10/09/19 22:07 Clinically, the patient is suffering from bronchitis insofar as she has a persistent cough with mild wheezing, both made worse when she is supine. She has not had a fever. I have ordered an influenza swab and a chest x-ray, but I am anticipating that both will be negative. Unless her chest x-ray demonstrates an infiltrate, I do not see the need for blood work at this time. 10/09/19 22:46 Two-view chest radiograph appears to be grossly normal. The cardiac silhouette is within normal limits. No pulmonary vascular congestion. No pleural effusions. No focal infiltrate. No pneumothorax. Formal read per the Radiologist pending. The patient's influenza swab has returned negative. 10/09/19 22:51 Test results discussed with the patient and her . As above, the patient is suffering from acute bronchitis. I explained that, unfortunately, there are no medicines that have been shown to be of benefit - not antibiotics, inhalers, cough suppressants, including opioid-containing cough suppressants, or anti- inflammatories, and that this illness will simply have to run its course. Both the patient and her expressed understanding. Departure - Departure Time of Disposition: 22:53 Disposition: Home, Self-Care 01 Condition: Good Clinical Impression: Acute bronchitis Qualifiers: Bronchitis organism: unspecified organism Qualified Code(s): J20.9 - Acute bronchitis, unspecified - Discharge Information *PRESCRIPTION DRUG MONITORING PROGRAM REVIEWED*: Not Applicable *COPY OF PRESCRIPTION DRUG MONITORING REPORT IN PATIENT MING: Not Applicable Instructions: Acute Bronchitis, Adult, [id number] Referrals: Sandie Bhagat PROP SETTER [Primary Care Provider] - Forms: ED Department Discharge, ED Summary Discharge Additional Instructions: You were seen in the emergency room for a persistent cough, shortness of breath , wheezing, all made worse by lying down, along with chest soreness from coughing, a sore throat, body aches, and a headache, since 10/05/2019. Work-up in the ER included an influenza swab and a chest x-ray, both of which returned negative. You are not suffering from influenza, and you do not have pneumonia. Based on your history, physical exam, and ER tests, you are suffering from acute viral bronchitis. Unfortunately, there are no medicines to treat acute bronchitis - it will have to run its course, which typically takes 2 to 3 weeks. If any other problems, including worsening of your symptoms, please do not hesitate to return to the ER. Sepsis Event Note - Evaluation Sepsis Screening Result: No Definite Risk - Focused Exam Vital Signs: Vital Signs Temp Pulse Resp BP Pulse Ox 10/09/19 21:23 36.7 C 74 28 H 143/72 H 93 L Date Exam was Performed: 10/09/19 Time Exam was Performed: 23:57 - My Orders Last 24 Hours: My Active Orders 10/09/19 22:06 Chest 2V [CR] Stat - Assessment/Plan Last 24 Hours: My Active Orders 10/09/19 22:06 Chest 2V [CR] Stat
--- NOTE | 2019-10-10 06:26 | CR ---
Chest: 2 views of the chest were obtained. Comparison: Prior chest x-ray of 08/07/18. Heart size at the upper limits of normal. Previous sternotomy is noted. Prior CABG is noted. Diaphragms are slightly flattened on the lateral view suggesting emphysematous change. No acute parenchymal change is appreciated within the lungs. Scattered degenerative change within the spine is seen. Prior cholecystectomy is noted. Impression: 1. Heart size at the upper limits of normal. 2. Probable emphysematous change. 3. Nothing acute is appreciated. Diagnostic code #2 This report was dictated in [place] Standard Time
== END 2019-10-09 23:05 | disposition home or self-care (01) ==
LOC: JD.ED 20:57
DX: J20.9 Acute bronchitis, unspecified (principal); I25.10 Atherosclerotic heart disease of native coronary artery without angina pectoris; E11.9 Type 2 diabetes mellitus without complications; K21.9 Gastro-esophageal reflux disease without esophagitis; E78.00 Pure hypercholesterolemia, unspecified; I10 Essential (primary) hypertension; Z88.0 Allergy status to penicillin; Z91.041 Radiographic dye allergy status; Z88.5 Allergy status to narcotic agent; Z88.8 Allergy status to other drugs, medicaments and biological substances; Z79.84 Long term (current) use of oral hypoglycemic drugs; Z79.82 Long term (current) use of aspirin; Z79.899 Other long term (current) drug therapy
CPT/HCPCS: 71046; 71046-26; 87804; 99283; 99283-25

== ENCOUNTER 2020-04-11 05:45 | Emergency (ER) | payer MEDICARE, OTHER ==
[2020-04-11 05:58] VITALS: PULSE 63
--- NOTE | 2020-04-11 06:05 | EDM.PDOC ---
ED HPI GENERAL MEDICAL PROBLEM - General Chief Complaint: Abdominal Pain Stated Complaint: ABDOMINAL AND BACK PAIN Time Seen by Provider: 04/11/20 06:03 - History of Present Illness INITIAL COMMENTS - FREE TEXT/NARRATIVE: 79-year-old female presents the emergency room with back pain. Patient developed low back pain on Friday now 2 days ago. Yesterday she had a ground-level fall landing on her buttocks and hip on the right side. This did not cause her too much grief. Patient denies any abdominal pain no nausea vomiting constipation or diarrhea. She denies any burning or frequency with urination. She is not having any loss of bowel or bladder control. The pain she describes is mostly in the very low lumbar and sacral region. This pain does not seem to radiate into the buttocks or down her legs. Patient states she has had back problems in the past. Patient has not taken anything for the pain she is allergic to Tylenol. - Related Data Allergies Allergy/AdvReac Type Severity Reaction Status Date / Time acetaminophen [From Tylenol] Allergy Severe Swelling Verified 04/11/20 05:58 morphine Allergy Severe Hives Verified 04/11/20 05:58 Iodinated Contrast Media Allergy Intermediate Swelling Verified 04/11/20 05:58 [Iodinated Contrast Media - IV Dye] fluticasone propionate AdvReac Severe Tachycardia Verified 04/11/20 05:58 [From Advair Diskus] Penicillins AdvReac Severe Anxiety Verified 04/11/20 05:58 prednisone AdvReac Severe Gi Bleeding Verified 04/11/20 05:58 salmeterol xinafoate AdvReac Severe Tachycardia Verified 04/11/20 05:58 [From Advair Diskus] Home Meds: Home Meds Benzonatate 200 mg PO TID PRN 08/13/14 [History] Metoprolol Tartrate [Lopressor] 100 mg PO BID 08/13/14 [History] amLODIPine [Norvasc] 5 mg PO DAILY 08/13/14 [History] atorvaSTATin [Lipitor] 20 mg PO DAILY 08/13/14 [History] glipiZIDE [Glucotrol] 20 mg PO BID 08/13/14 [History] Aspirin [Adult Low Dose Aspirin EC] 81 mg PO DAILY 07/17/15 [History] Omeprazole 20 mg PO DAILY #10 cap.sr 12/29/17 [Rx] Cyanocobalamin (Vitamin B-12) [B-12] 1,000 mg PO DAILY 08/07/18 [History] Furosemide [Lasix] 20 mg PO DAILY 08/07/18 [History] Losartan [Cozaar] 100 mg PO DAILY 08/07/18 [History] Linagliptin [Tradjenta] 5 mg PO DAILY 03/03/19 [History] Donepezil [Aricept] 5 mg PO DAILY 04/11/20 [History] Potassium Chloride 10 meq PO DAILY 04/11/20 [History] QUEtiapine Fumarate [Seroquel] 25 mg PO BEDTIME 04/11/20 [History] Past Medical History HEENT History: Reports: Allergic Rhinitis, Glaucoma Cardiovascular History: Reports: CAD, High Cholesterol, Hypertension Respiratory History: Reports: Asthma (unsure), COPD (unsure) Gastrointestinal History: Reports: GERD, PUD Other Gastrointestinal History: Left inguinal hernia repair Musculoskeletal History: Reports: Back Pain, Chronic Neurological History: Reports: Vertigo Endocrine/Metabolic History: Reports: Diabetes, Type II - Past Surgical History HEENT Surgical History: Reports: Cataract Surgery (bilateral), LASIK (bilateral) Cardiovascular Surgical History: Reports: Coronary Artery Bypass (x 3 vessel, 1995) GI Surgical History: Reports: Hernia, Inguinal (left) Musculoskeletal Surgical History: Reports: Carpal Tunnel (bilateral), Other (See Below) (Bilateral tarsal tunnel release) Social & Family History - Family History Family Medical History: Noncontributory - Caffeine Use Caffeine Use: Reports: Coffee, Soda, Tea - Living Situation & Occupation Living situation: Reports: , with Spouse, with Family (disabled son) Occupation: Retired ED ROS GENERAL - Review of Systems Review Of Systems: See Below Constitutional: Reports: No Symptoms HEENT: Reports: No Symptoms Respiratory: Reports: No Symptoms Cardiovascular: Reports: No Symptoms GI/Abdominal: Reports: No Symptoms Musculoskeletal: Reports: Back Pain Skin: Reports: No Symptoms Neurological: Reports: No Symptoms ED EXAM, GI/ABD - Physical Exam Exam: See Below Exam Limited By: No Limitations General Appearance: Alert, No Apparent Distress, Obese Head: Atraumatic, Normocephalic Neck: Normal Inspection, Supple, Non-Tender, Full Range of Motion Respiratory/Chest: No Respiratory Distress, Lungs Clear, Normal Breath Sounds Cardiovascular: Regular Rate, Rhythm, No Murmur, Other (No edema in the right lower leg left lower leg is chronically edematous) GI/Abdominal Exam: Normal Bowel Sounds, Soft, Non-Tender, No Distention, Pelvis Stable Back Exam: Vertebral Tenderness (She has pain in the lower lumbar area with palpation and over the sacrum) Extremities: Other (Left lower leg is edematous moderately so this is chronic secondary to vein harvesting for cardiac bypass surgery) Course - Vital Signs Last Recorded V/S: Last Vital Signs Temp 36.0 C L 04/11/20 05:52 Pulse 63 04/11/20 05:52 Resp 18 04/11/20 05:52 BP Pulse Ox 94 L 04/11/20 05:52 - Orders/Labs/Meds Orders: Active Orders 24 hr Category Date Time Status UA W/MICROSCOPIC [URIN] Stat Lab 04/11/20 06:50 Results Capsaicin [Capzasin-HP 0.1% Crm] Med 04/11/20 07:18 Active 0 gm TOP Q1H PRN Medication Orders Capsaicin (Capzasin-Hp 0.1% Crm) 0 gm TOP Q1H PRN PRN Reason: DIRECTED. Last Admin: 04/11/20 07:27 Dose: 1 applic Documented by: DANNY Labs: Laboratory Tests 04/11/20 Range/Units 06:50 Urine Color Yellow (Yellow) Urine Appearance Clear (Clear) Urine pH 6.0 (5.0-8.0) Ur Specific War[place] 1.020 (1.005-1.030) Urine Protein Negative (Negative) Urine Glucose (UA) Negative (Negative) Urine Ketones Negative (Negative) Urine Occult Blood 1+ H (Negative) Urine Nitrite Negative (Negative) Urine Bilirubin Negative (Negative) Urine Urobilinogen 0.2 (0.2-1.0) Ur Leukocyte Esterase Negative (Negative) Meds: Medications Generic Name Dose Route Start Last Admin Trade Name Freq PRN Reason Stop Dose Admin Capsaicin 0 gm 04/11/20 07:18 04/11/20 07:27 Capzasin-Hp 0.1% Crm TOP 1 applic Q1H PRN Administration DIRECTED. - Re-Assessments/Exams Free Text/Narrative Re-Assessment/Exam: 04/11/20 08:12 Awaiting collecting a urine. X-rays appear negative for acute fracture she has significant degenerative changes noted. 04/11/20 08:59 Analysis is coming back leukocyte Estrace nitrates negative. We will go ahead and discharge at this time. The patient did get some relief with her discomfort using the capsaicin cream. She is welcome to take this home and use it every 6- 8 hours as needed. Departure - Departure Time of Disposition: 08:59 Disposition: Home, Self-Care 01 Clinical Impression: Low back pain - Discharge Information Referrals: Sandie Bhagat, [employer] OFFIC[employer] [Primary Care Provider] - Forms: ED Department Discharge Additional Instructions: Return to the emergency room with any questions problems or worsening symptoms. Use the capsaicin cream every 6-8 hours as needed for discomfort only apply a very thin film over the area that is most tender. Follow-up with your regular healthcare provider in 1 week have your urine rechecked as you had a little bit of blood in it. This could have been from the fall yesterday. Sepsis Event Note (ED) - Evaluation Sepsis Screening Result: No Definite Risk - Focused Exam Vital Signs: Vital Signs Temp Pulse Resp Pulse Ox 04/11/20 05:52 36.0 C L 63 18 94 L - My Orders Last 24 Hours: My Active Orders 04/11/20 06:50 UA W/MICROSCOPIC [URIN] Stat 04/11/20 07:18 Capsaicin [Capzasin-HP 0.1% Crm] 0 gm TOP Q1H PRN - Assessment/Plan Last 24 Hours: My Active Orders 04/11/20 06:50 UA W/MICROSCOPIC [URIN] Stat 04/11/20 07:18 Capsaicin [Capzasin-HP 0.1% Crm] 0 gm TOP Q1H PRN
[2020-04-11] MEDS ORDERED: Capsaicin 0.1% Cream 42.5 GM Tube TOP PRN (07:18)
--- NOTE | 2020-04-11 07:43 | CR ---
Lumbar spine: AP, lateral and coned-down lateral views centered to the lumbosacral junction were obtained. Comparison: Prior lumbar spine x-ray of 10/28/16. Moderate to severe disc space narrowing at L5-S1 which has progressed from previous exam. Posterior disc space narrowing is noted at L3-4 and L4-5. Disc space narrowing is scattered within the thoracic spine. Scattered endplate osteophytes are noted. Vertebral body heights are maintained. Pedicles as well as visualized transverse and spinous processes are intact. Sacroiliac joints are normal. Surgical clips are seen from prior cholecystectomy. Vascular calcification is seen. No discrete fracture or subluxation is appreciated. Impression: 1. Degenerative change as noted above which has slightly progressed at L5-S1 from prior exam. 2. Other nonacute findings as described above. 3. Nothing acute is appreciated on three-view lumbar spine study. Diagnostic code #2 This report was dictated in MDT
--- NOTE | 2020-04-11 07:45 | CR ---
Sacroiliac joints: 3 views of the sacroiliac joints were obtained. Comparison: Prior AP pelvis study of 11/18/12. Sacroiliac joints appear within normal limits. Bony structures are osteopenic. No discrete fracture or other abnormality is appreciated. Joint spaces within both hips are preserved. Impression: 1. Osteopenia. 2. Nothing acute is seen on sacroiliac joint exam. Diagnostic code #2 This report was dictated in MDT
== END 2020-04-11 09:27 | disposition home or self-care (01) ==
LOC: JD.ED 05:45
DX: M54.5 Low back pain (principal); R60.0 Localized edema; E78.00 Pure hypercholesterolemia, unspecified; I10 Essential (primary) hypertension; I25.10 Atherosclerotic heart disease of native coronary artery without angina pectoris; E11.9 Type 2 diabetes mellitus without complications; K21.9 Gastro-esophageal reflux disease without esophagitis; E66.9 Obesity, unspecified; Z68.25 Body mass index [BMI] 25.0-25.9, adult; Z88.0 Allergy status to penicillin; Z88.5 Allergy status to narcotic agent; Z88.8 Allergy status to other drugs, medicaments and biological substances; Z91.041 Radiographic dye allergy status; Z88.6 Allergy status to analgesic agent; Z79.899 Other long term (current) drug therapy; Z79.82 Long term (current) use of aspirin
CPT/HCPCS: 72100; 72202; 81001; 99283; A9270; 99282

== ENCOUNTER 2020-12-29 15:47 | Emergency (ER) | payer MEDICARE, OTHER ==
[2020-12-29] MEDS ORDERED: Sodium Chloride 0.9% 10 ML Syringe FLUSH PRN (16:02)
--- NOTE | 2020-12-29 16:09 | EDM.PDOC ---
ED HPI GENERAL MEDICAL PROBLEM - General Chief Complaint: Chest Pain Stated Complaint: SOB X 3 DAYS Time Seen by Provider: 12/29/20 15:54 Source of Information: Reports: Patient, RN Notes Reviewed History Limitations: Reports: No Limitations - History of Present Illness INITIAL COMMENTS - FREE TEXT/NARRATIVE: Patient is an 80-year-old female who presents to the ER for the evaluation of her increased shortness of breath. Notes that she does have a history of asthma, and over the last few days she has been having issues where it is harder to catch her breath than normal. She notes that when she went for her walk last night, it seemed particularly worse. She has been complaining of a dry cough, but no fevers or chills, nausea/vomiting/diarrhea. Patient did have both of her Covid vaccines, completed in October 2020. But she does state that over the last week or so, she has been a few places without her mask, so she is scared that she may have contracted COVID-19. She has not been around anyone that is been known to have COVID-19 however. She has a history of high blood pressure, diabetes, and has had 3 stents in her heart for bypass surgery. She was complaining of a little bit of chest tightness, but no obvious chest pain, it seems to be intermittent in nature. Again walking seems to make it worse. She did use her inhaler a few times a day, and that seems to help a little bit when she does use it. Treatments BUSINESS COORDINATOR: Reports: EKG Left Upper Chest Pain Score (Numeric/FACES): 8 - Related Data Allergies Allergy/AdvReac Type Severity Reaction Status Date / Time acetaminophen [From Tylenol] Allergy Severe Swelling Verified 12/29/20 15:58 morphine Allergy Severe Hives Verified 12/29/20 15:58 Iodinated Contrast Media Allergy Intermediate Swelling Verified 12/29/20 15:58 [Iodinated Contrast Media - IV Dye] fluticasone propionate AdvReac Severe Tachycardia Verified 12/29/20 15:58 [From Advair Diskus] Penicillins AdvReac Severe Anxiety Verified 12/29/20 15:58 prednisone AdvReac Severe Gi Bleeding Verified 12/29/20 15:58 salmeterol xinafoate AdvReac Severe Tachycardia Verified 12/29/20 15:58 [From Advair Diskus] Home Meds: Home Meds Metoprolol Tartrate [Lopressor] 100 mg PO BID 08/13/14 [History] amLODIPine [Norvasc] 5 mg PO DAILY 08/13/14 [History] atorvaSTATin [Lipitor] 20 mg PO DAILY 08/13/14 [History] glipiZIDE [Glucotrol] 20 mg PO BID 08/13/14 [History] Aspirin [Adult Low Dose Aspirin EC] 81 mg PO DAILY 07/17/15 [History] Omeprazole 20 mg PO DAILY #10 cap.sr 12/29/17 [Rx] Cyanocobalamin (Vitamin B-12) [B-12] 1,000 mg PO DAILY 08/07/18 [History] Furosemide [Lasix] 20 mg PO DAILY 08/07/18 [History] Losartan [Cozaar] 50 mg PO DAILY 08/07/18 [History] Linagliptin [Tradjenta] 5 mg PO DAILY 03/03/19 [History] Potassium Chloride 20 meq PO DAILY 04/11/20 [History] Albuterol [Ventolin HFA] 1 puff INH Q4HR PRN 12/29/20 [History] Fluticasone/Vilanterol [Breo Ellipta 100-25 MCG Inhalation Kit] 1 each IH DAILY 12/29/20 [History] LORazepam [Ativan] 0.5 mg PO DAILY PRN 12/29/20 [History] Travoprost 2.5 ml OP BEDTIME 12/29/20 [History] risperiDONE [Risperidone] 0.5 mg PO DAILY 12/29/20 [History] Past Medical History HEENT History: Reports: Allergic Rhinitis, Glaucoma Cardiovascular History: Reports: CAD, High Cholesterol, Hypertension Respiratory History: Reports: Asthma, COPD Gastrointestinal History: Reports: GERD, PUD Musculoskeletal History: Reports: Back Pain, Chronic Neurological History: Reports: Vertigo Endocrine/Metabolic History: Reports: Diabetes, Type II - Past Surgical History HEENT Surgical History: Reports: Cataract Surgery, LASIK Cardiovascular Surgical History: Reports: Coronary Artery Bypass GI Surgical History: Reports: Hernia, Inguinal (left) Musculoskeletal Surgical History: Reports: Carpal Tunnel Social & Family History - Family History Family Medical History: No Pertinent Family History - Tobacco Use Tobacco Use Status *Q: Never Tobacco User - Caffeine Use Caffeine Use: Reports: Coffee, Soda, Tea - Recreational Drug Use Recreational Drug Use: No - Living Situation & Occupation Living situation: Reports: , with Spouse, with Family (disabled son) Occupation: Retired ED ROS GENERAL - Review of Systems Review Of Systems: Comprehensive ROS is negative, except as noted in HPI. ED EXAM, GENERAL - Physical Exam Exam: See Below Exam Limited By: No Limitations General Appearance: Alert, WD/WN, No Apparent Distress, Anxious (slightly) Respiratory/Chest: No Respiratory Distress, Lungs Clear, No Accessory Muscle Use, Chest Non-Tender, Decreased Breath Sounds (diffuse bilaterally) Cardiovascular: Normal Peripheral Pulses, Regular Rate, Rhythm, No Edema Peripheral Pulses: 2+: Radial (L), Radial (R) Extremities: Normal Inspection, Normal Capillary Refill Neurological: Alert, Oriented, Normal Cognition, No Motor/Sensory Deficits Psychiatric: Normal Affect, Normal Mood, Anxious (slight generalized) Skin Exam: Warm, Dry, Intact, Normal Color, No Rash #1 Interpretation EKG Date: 12/29/20 Time: 15:54 Rhythm: NSR Rate (Beats/Min): 67 Ten Sleep: Normal P-Wave: Present QRS: Normal ST-T: Normal QT: Prolonged (qtC AT 503) EKG Interpretation Comments: No obvious ischemia or acute ST changes noted, reviewed by myself and Dr. Solorio. Course - Vital Signs Last Recorded V/S: Last Vital Signs Temp 98.9 F 12/29/20 15:54 Pulse 68 12/29/20 15:54 Resp 25 H 12/29/20 15:54 BP 177/66 H 12/29/20 15:54 Pulse Ox 97 12/29/20 15:54 - Orders/Labs/Meds Orders: Active Orders 24 hr Category Date Time Status EKG Documentation Completion [RC] STAT Care 12/29/20 16:03 Active Peripheral IV Care [RC] . DIRECTED Care 12/29/20 16:03 Active Sodium Chloride 0.9% [Saline Flush] Med 12/29/20 16:02 Active 10 ml FLUSH ASDIRECTED PRN Peripheral IV Insertion Adult [OM.PC] Stat Oth 12/29/20 16:03 Ordered Medication Orders Sodium Chloride (Sodium Chloride 0.9% 10 Ml Syringe) 10 ml FLUSH ASDIRECTED PRN PRN Reason: Keep Vein Open Labs: Laboratory Tests 12/29/20 12/29/20 12/29/20 Range/Units 16:00 16:18 16:18 WBC 5.01 (3.98-10.04) K/mm3 RBC 3.98 (3.98-5.22) M/mm3 Hgb 11.0 L (11.2-15.7) gm/dl Hct 34.7 (34.1-44.9) % MCV 87.2 (79.4-94.8) fl MCH 27.6 (25.6-32.2) pg MCHC 31.7 L (32.2-35.5) g/dl RDW Std Deviation 47.2 H (36.4-46.3) fL Plt Count 172 L (182-369) K/mm3 MPV 10.0 (9.4-12.3) fl Neut % (Auto) 56.3 (34.0-71.1) % Lymph % (Auto) 29.9 (19.3-51.7) % Iron % (Auto) 12.0 (4.7-12.5) % Eos % (Auto) 1.6 (0.7-5.8) Baso % (Auto) 0.2 (0.1-1.2) % Neut # (Auto) 2.82 (1.56-6.13) K/mm3 Lymph # (Auto) 1.50 (1.18-3.74) K/mm3 Iron # (Auto) 0.60 H (0.24-0.36) K/mm3 Eos # (Auto) 0.08 (0.04-0.36) K/mm3 Baso # (Auto) 0.01 (0.01-0.08) K/mm3 PT 10.1 (9.7-12.0) SECONDS INR 0.94 APTT 24.5 (21.7-31.4) SECONDS Sodium (136-145) mEq/L Potassium (3.5-5.1) mEq/L Chloride (98-107) mEq/L Carbon Dioxide (21-32) mEq/L Anion Gap (5-15) BUN (7-18) mg/dL Creatinine (0.55-1.02) mg/dL Est Cr Clr Drug Dosing mL/min Estimated GFR (MDRD) (>60) mL/min BUN/Creatinine Ratio (14-18) Glucose (70-99) mg/dL Calcium (8.5-10.1) mg/dL Magnesium (1.8-2.4) mg/dL Total Bilirubin (0.2-1.0) mg/dL AST (15-37) U/L ALT (14-59) U/L Alkaline Phosphatase (46-116) U/L Troponin I (0.00-0.056) ng/mL NT-Pro-B Natriuret Pep (0-450) pg/mL Total Protein (6.4-8.2) g/dl Albumin (3.4-5.0) g/dl Globulin gm/dL Albumin/Globulin Ratio (1-2) Influenza Type A RNA Negative (NEGATIVE) Influenza Type B RNA Negative (NEGATIVE) SARS-CoV-2 RNA (KATHERINE) Negative (NEGATIVE) 12/29/20 12/29/20 Range/Units 16:18 16:18 WBC (3.98-10.04) K/mm3 RBC (3.98-5.22) M/mm3 Hgb (11.2-15.7) gm/dl Hct (34.1-44.9) % MCV (79.4-94.8) fl MCH (25.6-32.2) pg MCHC (32.2-35.5) g/dl RDW Std Deviation (36.4-46.3) fL Plt Count (182-369) K/mm3 MPV (9.4-12.3) fl Neut % (Auto) (34.0-71.1) % Lymph % (Auto) (19.3-51.7) % Iron % (Auto) (4.7-12.5) % Eos % (Auto) (0.7-5.8) Baso % (Auto) (0.1-1.2) % Neut # (Auto) (1.56-6.13) K/mm3 Lymph # (Auto) (1.18-3.74) K/mm3 Iron # (Auto) (0.24-0.36) K/mm3 Eos # (Auto) (0.04-0.36) K/mm3 Baso # (Auto) (0.01-0.08) K/mm3 PT (9.7-12.0) SECONDS INR APTT (21.7-31.4) SECONDS Sodium 138 (136-145) mEq/L Potassium 4.2 (3.5-5.1) mEq/L Chloride 102 (98-107) mEq/L Carbon Dioxide 27 (21-32) mEq/L Anion Gap 13.2 (5-15) BUN 20 H (7-18) mg/dL Creatinine 1.0 (0.55-1.02) mg/dL Est Cr Clr Drug Dosing 32.73 mL/min Estimated GFR (MDRD) 53 (>60) mL/min BUN/Creatinine Ratio 20.0 H (14-18) Glucose 177 H (70-99) mg/dL Calcium 8.2 L (8.5-10.1) mg/dL Magnesium 1.8 (1.8-2.4) mg/dL Total Bilirubin 0.4 (0.2-1.0) mg/dL AST 19 (15-37) U/L ALT 24 (14-59) U/L Alkaline Phosphatase 150 H (46-116) U/L Troponin I < 0.017 (0.00-0.056) ng/mL NT-Pro-B Natriuret Pep 590 H (0-450) pg/mL Total Protein 7.1 (6.4-8.2) g/dl Albumin 3.7 (3.4-5.0) g/dl Globulin 3.4 gm/dL Albumin/Globulin Ratio 1.1 (1-2) Influenza Type A RNA (NEGATIVE) Influenza Type B RNA (NEGATIVE) SARS-CoV-2 RNA (KATHERINE) (NEGATIVE) Meds: Medications Generic Name Dose Route Start Last Admin Trade Name Freq PRN Reason Stop Dose Admin Sodium Chloride 10 ml 12/29/20 16:02 Sodium Chloride 0.9% 10 Ml Syringe FLUSH ASDIRECTED PRN Keep Vein Open - Re-Assessments/Exams Free Text/Narrative Re-Assessment/Exam: 12/29/20 16:07 Patient presents to the ER for her shortness of breath and chest discomfort for today's purposes we will go ahead and check for COVID-19, EKG was done at time of triage and shows no acute ST change visualized by myself or Dr. Solorio; basic labs will also be obtained, and IV will be established on the off chance that we would need it on a more urgent note. Highly suspect possible asthma exacerbation or COPD exacerbation versus other more concerning etiology. 12/29/20 17:14 Labs have returned, and everything is unremarkable, troponin is undetectably low, metabolic panel demonstrates normal focal abnormalities, blood sugar is slightly elevated at 177. The Covid screen was also negative. Findings were discussed with the patient and she verbalized understanding. Will discharge home with general recommendations. Departure - Departure Time of Disposition: 17:14 Disposition: Home, Self-Care 01 Condition: Good Clinical Impression: Dyspnea on exertion - Discharge Information *PRESCRIPTION DRUG MONITORING PROGRAM REVIEWED*: No *COPY OF PRESCRIPTION DRUG MONITORING REPORT IN PATIENT MING: No Instructions: Shortness of Breath, Adult, [id number] Referrals: Sandie Bhagat WINCHER [Primary Care Provider] - Forms: ED Department Discharge Additional Instructions: You were evaluated in the ER today for your shortness of breath/chest discomfort. Laboratory evaluation, chest x-ray and EKG done at today's visit demonstrate no focal abnormalities, you are not suffering from a heart attack at today's visit, your COVID-19 screen was negative at today's visit. Recommend that you use your inhaler, before activities over the next few days to see if this helps relieve some of your shortness of breath. If symptoms do not seem to be getting much better, please consult your regular care provider, for ongoing management. Please return to the ER if your symptoms seem to change or worsen. Sepsis Event Note (ED) - Evaluation Sepsis Screening Result: No Definite Risk - Focused Exam Vital Signs: Vital Signs Temp Pulse Resp BP Pulse Ox 12/29/20 15:54 98.9 F 68 25 H 177/66 H 97 - My Orders Last 24 Hours: My Active Orders 12/29/20 16:02 Sodium Chloride 0.9% [Saline Flush] 10 ml FLUSH ASDIRECTED PRN 12/29/20 16:03 EKG Documentation Completion [RC] STAT Peripheral IV Care [RC] . DIRECTED Peripheral IV Insertion Adult [OM.PC] Stat - Assessment/Plan Last 24 Hours: My Active Orders 12/29/20 16:02 Sodium Chloride 0.9% [Saline Flush] 10 ml FLUSH ASDIRECTED PRN 12/29/20 16:03 EKG Documentation Completion [RC] STAT Peripheral IV Care [RC] . DIRECTED Peripheral IV Insertion Adult [OM.PC] Stat
[2020-12-29 16:47] LABS: CORONAVIRUS COVID-19 NAA NEGATIVE (NEGATIVE)
--- NOTE | 2020-12-29 16:52 | CR ---
Chest: Portable view of the chest was obtained. Comparison: Prior chest x-ray 10/09/19 and 08/07/18. Heart size and mediastinum are within normal limits for portable technique. Prior sternotomy is noted. Lungs are clear with no acute parenchymal change. Surgical clips are noted from prior cholecystectomy. No acute osseous abnormality is appreciated. Impression: 1. Nothing acute is seen on portable chest x-ray. Diagnostic code #2
[2020-12-29 17:29] VITALS: BP 138/74; PULSE 78
== END 2020-12-29 17:28 | disposition home or self-care (01) ==
LOC: JD.ED 15:47
DX: R06.02 Shortness of breath (principal); I25.10 Atherosclerotic heart disease of native coronary artery without angina pectoris; E78.00 Pure hypercholesterolemia, unspecified; I10 Essential (primary) hypertension; K21.9 Gastro-esophageal reflux disease without esophagitis; J44.9 Chronic obstructive pulmonary disease, unspecified; E11.9 Type 2 diabetes mellitus without complications; Z88.0 Allergy status to penicillin; Z88.6 Allergy status to analgesic agent; Z91.041 Radiographic dye allergy status; Z88.8 Allergy status to other drugs, medicaments and biological substances; Z20.822 Contact with and (suspected) exposure to COVID-19
CPT/HCPCS: 0240U; 36415; 71045; 80053; 83735; 83880; 84484; 85025; 85610; 85730; 93005; 99285; 93010; 99284

== ENCOUNTER 2021-01-21 14:58 | Emergency (ER) | payer MEDICARE, OTHER ==
[2021-01-21 15:09] VITALS: BP 157/59; PULSE 67
[2021-01-21] MEDS ORDERED: Ondansetron 4 MG/2 ML SDV IVPUSH ONE (15:33)
[2021-01-21] MEDS ORDERED: Sodium Chloride 0.9% 10 ML Syringe FLUSH PRN (15:33)
[2021-01-21] MEDS ORDERED: HYDROmorphone 0.5 MG/0.5 ML Syringe IVPUSH ONE (15:34)
[2021-01-21] MEDS ORDERED: Sodium Chloride 0.9% 1,000 ML IV SCH (15:45)
--- NOTE | 2021-01-21 16:25 | EDM.PDOC ---
ED HPI GENERAL MEDICAL PROBLEM - General Chief Complaint: Abdominal Pain Stated Complaint: DIARRHEA/ABD PAIN Time Seen by Provider: 01/21/21 15:23 Source of Information: Reports: Patient History Limitations: Reports: No Limitations - History of Present Illness INITIAL COMMENTS - FREE TEXT/NARRATIVE: The patient presents with abdominal pain, nausea and diarrhea. This has been g oing on for weeks. She has seen Sandie Bhagat for this but it is getting worse. She has no fever, chills, cough, chest pain, shortness of breath. She was given some medicine for acid in her stomach which is omeprazole. She is also on Succharomyces Boulardii for the diarrhea. This one she says causes her to itch. Neither one of them is working. She has no blood in her stool. She can eat but not much because of nausea. She has not vomited yet. Onset: Gradual Duration: Week(s): Location: Reports: Abdomen Quality: Reports: Sharp Severity: Moderate Improves with: Reports: None Worsens with: Reports: None Associated Symptoms: Reports: Nausea/Vomiting. Denies: Chest Pain, Cough, Fever/Chills, Headaches, Shortness of Breath Middle Abdomen Pain Score (Numeric/FACES): 8 - Related Data Allergies Allergy/AdvReac Type Severity Reaction Status Date / Time acetaminophen [From Tylenol] Allergy Severe Swelling Verified 01/21/21 15:09 Iodinated Contrast Media Allergy Severe Swelling Verified 01/21/21 15:09 [Iodinated Contrast Media - IV Dye] morphine Allergy Severe Hives Verified 01/21/21 15:09 fluticasone propionate AdvReac Severe Tachycardia Verified 01/21/21 15:09 [From Advair Diskus] Penicillins AdvReac Severe Anxiety Verified 01/21/21 15:09 prednisone AdvReac Severe Gi Bleeding Verified 01/21/21 15:09 salmeterol xinafoate AdvReac Severe Tachycardia Verified 01/21/21 15:09 [From Advair Diskus] Home Meds: Home Meds Metoprolol Tartrate [Lopressor] 100 mg PO BID 08/13/14 [History] amLODIPine [Norvasc] 5 mg PO DAILY 08/13/14 [History] atorvaSTATin [Lipitor] 20 mg PO DAILY 08/13/14 [History] glipiZIDE [Glucotrol] 20 mg PO BID 08/13/14 [History] Aspirin [Adult Low Dose Aspirin EC] 81 mg PO DAILY 07/17/15 [History] Omeprazole 20 mg PO DAILY #10 cap.sr 12/29/17 [Rx] Furosemide [Lasix] 20 mg PO DAILY 08/07/18 [History] Losartan [Cozaar] 50 mg PO DAILY 08/07/18 [History] Linagliptin [Tradjenta] 5 mg PO DAILY 03/03/19 [History] Potassium Chloride 20 meq PO DAILY 04/11/20 [History] Benzonatate 200 mg PO TID PRN 01/21/21 [History] Cyanocobalamin (Vitamin B12) [Vitamin B12] 1,000 mcg PO DAILY 01/21/21 [History] Donepezil [Aricept] 5 mg PO BEDTIME 01/21/21 [History] Nystatin 10 ml PO QID 01/21/21 [History] Saccharomyces Boulardii [Florastor] 250 mg PO DAILY 01/21/21 [History] Ubidecarenone [Co Q-10] 100 mg PO DAILY 01/21/21 [History] Past Medical History HEENT History: Reports: Allergic Rhinitis, Glaucoma Cardiovascular History: Reports: CAD, High Cholesterol, Hypertension Respiratory History: Reports: Asthma, COPD Gastrointestinal History: Reports: Chronic Diarrhea, GERD, PUD Other Gastrointestinal History: Left inguinal hernia repair Musculoskeletal History: Reports: Back Pain, Chronic Neurological History: Reports: Vertigo Endocrine/Metabolic History: Reports: Diabetes, Type II - Past Surgical History HEENT Surgical History: Reports: Cataract Surgery, LASIK Cardiovascular Surgical History: Reports: Coronary Artery Bypass GI Surgical History: Reports: Hernia, Inguinal Musculoskeletal Surgical History: Reports: Carpal Tunnel Other Musculoskeletal Surgeries/Procedures:: Carpal tunnel repair. Social & Family History - Family History Family Medical History: No Pertinent Family History - Tobacco Use Tobacco Use Status *Q: Never Tobacco User - Caffeine Use Caffeine Use: Reports: Coffee - Recreational Drug Use Recreational Drug Use: No - Living Situation & Occupation Living situation: Reports: , with Spouse, with Family (disabled son) Occupation: Retired ED ROS GENERAL - Review of Systems Review Of Systems: See Below Constitutional: Reports: No Symptoms HEENT: Reports: No Symptoms Respiratory: Reports: No Symptoms Cardiovascular: Reports: No Symptoms Endocrine: Reports: No Symptoms GI/Abdominal: Reports: Abdominal Pain, Diarrhea, Nausea. Denies: Vomiting : Reports: No Symptoms Musculoskeletal: Reports: No Symptoms ED EXAM, GI/ABD - Physical Exam Exam: See Below Exam Limited By: No Limitations General Appearance: Alert, No Apparent Distress Ears: Normal External Exam Nose: Normal Inspection Head: Atraumatic, Normocephalic Neck: Normal Inspection Respiratory/Chest: No Respiratory Distress, Lungs Clear, Normal Breath Sounds Cardiovascular: Regular Rate, Rhythm, No Edema, No Murmur GI/Abdominal Exam: Soft, No Organomegaly, No Mass, Tender (Moderate tenderness to the upper to left abdomen) Course - Vital Signs Last Recorded V/S: Last Vital Signs Temp 97.2 F 01/21/21 15:06 Pulse 67 01/21/21 15:06 Resp 18 01/21/21 15:06 BP 157/59 H 01/21/21 15:06 Pulse Ox 100 01/21/21 15:06 - Orders/Labs/Meds Orders: Active Orders 24 hr Category Date Time Status Peripheral IV Care [RC] . DIRECTED Care 01/21/21 15:34 Active Abdomen Pelvis wo Cont [CT] Stat Exams 01/21/21 15:33 Taken STOOL CULTURE/SHIGA TOXIN [MREF] Stat Lab 01/21/21 15:36 Stop Req Sodium Chloride 0.9% [Normal Saline] 1,000 ml Med 01/21/21 15:45 Active IV ASDIRECTED Sodium Chloride 0.9% [Saline Flush] Med 01/21/21 15:33 Active 10 ml FLUSH ASDIRECTED PRN ED Antiemetic Medication Reflex [OM.PC] Stat Oth 01/21/21 15:33 Ordered Peripheral IV Insertion Adult [OM.PC] Stat Oth 01/21/21 15:33 Ordered Medication Orders Sodium Chloride (Normal Saline) 1,000 mls @ 125 mls/hr IV ASDIRECTED DA Last Admin: 01/21/21 15:43 Dose: 125 mls/hr Documented by: DANNY Sodium Chloride (Sodium Chloride 0.9% 10 Ml Syringe) 10 ml FLUSH ASDIRECTED PRN PRN Reason: Keep Vein Open Last Admin: 01/21/21 15:43 Dose: 10 ml Documented by: DANNY Labs: Laboratory Tests 01/21/21 01/21/21 01/21/21 Range/Units 15:15 15:15 15:25 WBC 4.85 (3.98-10.04) K/mm3 RBC 4.12 (3.98-5.22) M/mm3 Hgb 11.5 (11.2-15.7) gm/dl Hct 35.4 (34.1-44.9) % MCV 85.9 (79.4-94.8) fl MCH 27.9 (25.6-32.2) pg MCHC 32.5 (32.2-35.5) g/dl RDW Std Deviation 46.0 (36.4-46.3) fL Plt Count 193 (182-369) K/mm3 MPV 10.1 (9.4-12.3) fl Neut % (Auto) 70.6 (34.0-71.1) % Lymph % (Auto) 14.6 L (19.3-51.7) % [place] % (Auto) 10.5 (4.7-12.5) % Eos % (Auto) 3.9 (0.7-5.8) Baso % (Auto) 0.2 (0.1-1.2) % Neut # (Auto) 3.42 (1.56-6.13) K/mm3 Lymph # (Auto) 0.71 L (1.18-3.74) K/mm3 [place] # (Auto) 0.51 H (0.24-0.36) K/mm3 Eos # (Auto) 0.19 (0.04-0.36) K/mm3 Baso # (Auto) 0.01 (0.01-0.08) K/mm3 Sodium 140 (136-145) mEq/L Potassium 3.8 (3.5-5.1) mEq/L Chloride 104 (98-107) mEq/L Carbon Dioxide 25 (21-32) mEq/L Anion Gap 14.8 (5-15) BUN 19 H (7-18) mg/dL Creatinine 1.0 (0.55-1.02) mg/dL Est Cr Clr Drug Dosing 31.15 mL/min Estimated GFR (MDRD) 53 (>60) mL/min BUN/Creatinine Ratio 19.0 H (14-18) Glucose 173 H (70-99) mg/dL Calcium 7.9 L (8.5-10.1) mg/dL Total Bilirubin 0.6 (0.2-1.0) mg/dL AST 17 (15-37) U/L ALT 18 (14-59) U/L Alkaline Phosphatase 111 (46-116) U/L Total Protein 7.0 (6.4-8.2) g/dl Albumin 3.7 (3.4-5.0) g/dl Globulin 3.3 gm/dL Albumin/Globulin Ratio 1.1 (1-2) Lipase 153 (73-393) U/L Urine Color Yellow (Yellow) Urine Appearance Clear (Clear) Urine pH 6.0 (5.0-8.0) Ur Specific Joes > or = 1.030 (1.005-1.030) Urine Protein 1+ H (Negative) Urine Glucose (UA) Negative (Negative) Urine Ketones Negative (Negative) Urine Occult Blood 1+ H (Negative) Urine Nitrite Negative (Negative) Urine Bilirubin Negative (Negative) Urine Urobilinogen 0.2 (0.2-1.0) Ur Leukocyte Esterase Negative (Negative) U Hyaline Cast (Auto) 0-5 (0-5) /lpf Urine RBC 0-5 (0-5) /hpf Urine WBC Not seen (0-5) /hpf Ur Epithelial Cells 0-5 (0-5) /hpf Urine Bacteria Moderate H (FEW) /hpf Urine Mucus Few (FEW) /hpf C.difficile [id number] C. difficile Tox (PCR) 01/21/21 Range/Units 15:25 WBC (3.98-10.04) K/mm3 RBC (3.98-5.22) M/mm3 Hgb (11.2-15.7) gm/dl Hct (34.1-44.9) % MCV (79.4-94.8) fl MCH (25.6-32.2) pg MCHC (32.2-35.5) g/dl RDW Std Deviation (36.4-46.3) fL Plt Count (182-369) K/mm3 MPV (9.4-12.3) fl Neut % (Auto) (34.0-71.1) % Lymph % (Auto) (19.3-51.7) % Cas[place] % (Auto) (4.7-12.5) % Eos % (Auto) (0.7-5.8) Baso % (Auto) (0.1-1.2) % Neut # (Auto) (1.56-6.13) K/mm3 Lymph # (Auto) (1.18-3.74) K/mm3 [place] # (Auto) (0.24-0.36) K/mm3 Eos # (Auto) (0.04-0.36) K/mm3 Baso # (Auto) (0.01-0.08) K/mm3 Sodium (136-145) mEq/L Potassium (3.5-5.1) mEq/L Chloride (98-107) mEq/L Carbon Dioxide (21-32) mEq/L Anion Gap (5-15) BUN (7-18) mg/dL Creatinine (0.55-1.02) mg/dL Est Cr Clr Drug Dosing mL/min Estimated GFR (MDRD) (>60) mL/min BUN/Creatinine Ratio (14-18) Glucose (70-99) mg/dL Calcium (8.5-10.1) mg/dL Total Bilirubin (0.2-1.0) mg/dL AST (15-37) U/L ALT (14-59) U/L Alkaline Phosphatase (46-116) U/L Total Protein (6.4-8.2) g/dl Albumin (3.4-5.0) g/dl Globulin gm/dL Albumin/Globulin Ratio (1-2) Lipase (73-393) U/L Urine Color (Yellow) Urine Appearance (Clear) Urine pH (5.0-8.0) Ur Specific Joes (1.005-1.030) Urine Protein (Negative) Urine Glucose (UA) (Negative) Urine Ketones (Negative) Urine Occult Blood (Negative) Urine Nitrite (Negative) Urine Bilirubin (Negative) Urine Urobilinogen (0.2-1.0) Ur Leukocyte Esterase (Negative) U Hyaline Cast (Auto) (0-5) /lpf Urine RBC (0-5) /hpf Urine WBC (0-5) /hpf Ur Epithelial Cells (0-5) /hpf Urine Bacteria (FEW) /hpf Urine Mucus (FEW) /hpf C.difficile [id number] Presumptive negative C. difficile Tox (PCR) Negative Meds: Medications Generic Name Dose Route Start Last Admin Trade Name Freq PRN Reason Stop Dose Admin Sodium Chloride 1,000 mls @ 125 mls/hr 01/21/21 15:45 01/21/21 15:43 Normal Saline IV 125 mls/hr ASDIRECTED DA Administration Sodium Chloride 10 ml 01/21/21 15:33 01/21/21 15:43 Sodium Chloride 0.9% 10 Ml Syringe FLUSH 10 ml ASDIRECTED PRN Administration Keep Vein Open Discontinued Medications Generic Name Dose Route Start Last Admin Trade Name Freq PRN Reason Stop Dose Admin Hydromorphone HCl 0.25 mg 01/21/21 15:34 01/21/21 15:43 Hydromorphone 0.5 Mg/0.5 Ml Syringe IVPUSH 01/21/21 15:35 0.25 mg ONETIME ONE Administration Ondansetron HCl 4 mg 01/21/21 15:33 01/21/21 15:43 Ondansetron 4 Mg/2 Ml Sdv IVPUSH 01/21/21 15:34 4 mg ONETIME ONE Administration - Re-Assessments/Exams Free Text/Narrative Re-Assessment/Exam: 01/21/21 16:25 I ordered an IV NS at 125mL/hr, zofran 4mg IV, dilaudid 0.25mg IV, labs, UA, sto ol studies and a CT of her abdomen and pelvis. 01/21/21 17:35 Her CBC looks good. Her glucose is elevated at 173. Her UA shows no UTI. Her CT shows no acute findings. She feels a little better. I will have her take some imodium to help with the diarrhea. Departure - Departure Time of Disposition: 17:40 Disposition: Home, Self-Care 01 Condition: Good Clinical Impression: Abdominal pain Qualifiers: Abdominal location: epigastric Qualified Code(s): R10.13 - Epigastric pain Diarrhea Qualifiers: Diarrhea type: unspecified type Qualified Code(s): R19.7 - Diarrhea, unspecified - Discharge Information *PRESCRIPTION DRUG MONITORING PROGRAM REVIEWED*: Not Applicable *COPY OF PRESCRIPTION DRUG MONITORING REPORT IN PATIENT MING: Not Applicable Referrals: Sandie Bhagat, AFTER SCHOOL PROGRAM DIRECTOR [Primary Care Provider] - 1 Week Forms: ED Department Discharge Additional Instructions: Stop taking the nystatin and see if that helps stop the itching. Keep taking your other medications. Try imodium and see if that helps with the diarrhea. Follow up with Sandie Bhagat on [place]. Sepsis Event Note (ED) - Evaluation Sepsis Screening Result: No Definite Risk - Focused Exam Vital Signs: Vital Signs Temp Pulse Resp BP Pulse Ox 01/21/21 15:06 97.2 F 67 18 157/59 H 100 - My Orders Last 24 Hours: My Active Orders 01/21/21 15:33 Abdomen Pelvis wo Cont [CT] Stat Sodium Chloride 0.9% [Saline Flush] 10 ml FLUSH ASDIRECTED PRN ED Antiemetic Medication Reflex [OM.PC] Stat Peripheral IV Insertion Adult [OM.PC] Stat 01/21/21 15:34 Peripheral IV Care [RC] . DIRECTED 01/21/21 15:36 STOOL CULTURE/SHIGA TOXIN [MREF] Stat 01/21/21 15:45 Sodium Chloride 0.9% [Normal Saline] 1,000 ml IV ASDIRECTED - Assessment/Plan Last 24 Hours: My Active Orders 01/21/21 15:33 Abdomen Pelvis wo Cont [CT] Stat Sodium Chloride 0.9% [Saline Flush] 10 ml FLUSH ASDIRECTED PRN ED Antiemetic Medication Reflex [OM.PC] Stat Peripheral IV Insertion Adult [OM.PC] Stat 01/21/21 15:34 Peripheral IV Care [RC] . DIRECTED 01/21/21 15:36 STOOL CULTURE/SHIGA TOXIN [MREF] Stat 01/21/21 15:45 Sodium Chloride 0.9% [Normal Saline] 1,000 ml IV ASDIRECTED
--- NOTE | 2021-01-22 07:44 | CT ---
CT abdomen and pelvis Technique: Multiple axial sections were obtained from above the dome of the diaphragm inferiorly through the pubic symphysis. Intravenous and oral contrast were not utilized. Reconstructed coronal and sagittal images were obtained. Comparison: Prior CT abdomen and pelvis exam of 11/18/12. Findings: Visualized lung bases show nothing acute. Noncontrast appearance of the liver and spleen show no focal abnormality. Surgical clips are noted from prior cholecystectomy. Adrenal glands show no nodule. Pancreas shows no abnormality. Kidneys show no hydronephrosis or mass. No abnormal calcifications are seen within the kidneys. Ureters show no dilatation or abnormal ureteral stones. Abdominal aorta shows diffuse atherosclerotic calcification which continues into the iliac vessels with no aneurysm. No retroperitoneal adenopathy or mesenteric abnormalities are seen. Appendix is seen which is normal. No pelvic mass or adenopathy is seen. No free fluid or inflammatory change is seen. Very minimal fat-containing umbilical hernia is noted. Bone window settings were reviewed which show scattered degenerative change within the spine which includes the discs, endplates and apophyseal joints. No acute osseous abnormality is appreciated. Impression: 1. Degenerative change as described above. 2. Nothing acute is identified on noncontrast CT study of the abdomen and pelvis. Diagnostic code #2 I agree with preliminary report from [facility], finalized on 01/21/21, 5:55 PM CDT, code 1
== END 2021-01-21 17:49 | disposition home or self-care (01) ==
LOC: JD.ED 14:58
DX: R10.13 Epigastric pain (principal); I25.10 Atherosclerotic heart disease of native coronary artery without angina pectoris; E78.00 Pure hypercholesterolemia, unspecified; I10 Essential (primary) hypertension; J44.9 Chronic obstructive pulmonary disease, unspecified; K21.9 Gastro-esophageal reflux disease without esophagitis; E11.9 Type 2 diabetes mellitus without complications; Z79.82 Long term (current) use of aspirin; Z79.84 Long term (current) use of oral hypoglycemic drugs; Z88.6 Allergy status to analgesic agent; Z91.041 Radiographic dye allergy status; Z88.5 Allergy status to narcotic agent; Z88.0 Allergy status to penicillin; Z88.8 Allergy status to other drugs, medicaments and biological substances
CPT/HCPCS: 36415; 74176; 80053; 81001; 83690; 85025; 87493; 96374; 96375; 99284; J1170; J2405; J7030

== ENCOUNTER 2021-03-17 22:20 | Emergency (ER) | payer MEDICARE, OTHER ==
[2021-03-17 22:34] VITALS: BP 178/71; PULSE 61
[2021-03-17] MEDS ORDERED: Sodium Chloride 0.9% 10 ML Syringe FLUSH PRN (22:42)
[2021-03-17] MEDS ORDERED: Sodium Chloride 0.9% 1,000 ML IV ONE (22:43)
[2021-03-18] MEDS ORDERED: Nitrofurantoin Monohydrate/Macrocrystalline 100 MG Cap PO ONE (01:35)
--- NOTE | 2021-03-18 01:47 | EDM.PDOC ---
ED HPI GENERAL MEDICAL PROBLEM - General Chief Complaint: General Stated Complaint: CHEST PAIN Time Seen by Provider: 03/17/21 22:41 Source of Information: Reports: Patient History Limitations: Reports: No Limitations - History of Present Illness INITIAL COMMENTS - FREE TEXT/NARRATIVE: Patient is an 80-year-old female who is complaining of feeling achy and all her extremities with her arms being painful at times in her legs mainly feeling weak. Patient is also having some chest pain on the upper left chest which started earlier this morning. She denies any exertional chest pain. She has not been coughing or having any fever or chills. There is been no nausea vomiting or diarrhea. She denies any bloody or tarry stools. She denies any dysuria or hematuria. Patient has been on potassium supplements at times and is on them currently. Headache or any focal neurological symptoms or any change in her vision or hearing. She has had no trouble with her speech. Her main complaint is that her arms are both painful. Location: Reports: Generalized Quality: Reports: Ache Severity: Moderate Improves with: Reports: None Worsens with: Reports: None Associated Symptoms: Reports: Chest Pain Generalized Pain Score (Numeric/FACES): 8 - Related Data Allergies Allergy/AdvReac Type Severity Reaction Status Date / Time acetaminophen [From Tylenol] Allergy Severe Swelling Verified 03/17/21 22:34 Iodinated Contrast Media Allergy Severe Swelling Verified 03/17/21 22:34 [Iodinated Contrast Media - IV Dye] morphine Allergy Severe Hives Verified 03/17/21 22:34 fluticasone propionate AdvReac Severe Tachycardia Verified 03/17/21 22:34 [From Advair Diskus] Penicillins AdvReac Severe Anxiety Verified 03/17/21 22:34 prednisone AdvReac Severe Gi Bleeding Verified 03/17/21 22:34 salmeterol xinafoate AdvReac Severe Tachycardia Verified 03/17/21 22:34 [From Advair Diskus] Home Meds: Home Meds Metoprolol Tartrate [Lopressor] 100 mg PO BID 08/13/14 [History] amLODIPine [Norvasc] 5 mg PO DAILY 08/13/14 [History] atorvaSTATin [Lipitor] 20 mg PO DAILY 08/13/14 [History] glipiZIDE [Glucotrol] 20 mg PO BID 08/13/14 [History] Aspirin [Adult Low Dose Aspirin EC] 81 mg PO DAILY 07/17/15 [History] Omeprazole 20 mg PO DAILY #10 cap.sr 12/29/17 [Rx] Furosemide [Lasix] 20 mg PO DAILY 08/07/18 [History] Losartan [Cozaar] 50 mg PO DAILY 08/07/18 [History] Linagliptin [Tradjenta] 5 mg PO DAILY 03/03/19 [History] Potassium Chloride 20 meq PO DAILY 04/11/20 [History] Cyanocobalamin (Vitamin B12) [Vitamin B12] 1,000 mcg PO DAILY 01/21/21 [History] Saccharomyces Boulardii [Florastor] 250 mg PO DAILY 01/21/21 [History] Ubidecarenone [Co Q-10] 100 mg PO DAILY 01/21/21 [History] Nitrofurantoin Monohyd/M-Cryst [Macrobid 100 mg Capsule] 100 mg PO BID #10 capsule 03/18/21 [Rx] Past Medical History HEENT History: Reports: Allergic Rhinitis, Glaucoma Cardiovascular History: Reports: CAD, High Cholesterol, Hypertension Respiratory History: Reports: Asthma, COPD Gastrointestinal History: Reports: Chronic Diarrhea, GERD, PUD Other Gastrointestinal History: Left inguinal hernia repair Musculoskeletal History: Reports: Back Pain, Chronic Neurological History: Reports: Vertigo Endocrine/Metabolic History: Reports: Diabetes, Type II - Past Surgical History HEENT Surgical History: Reports: Cataract Surgery, LASIK Cardiovascular Surgical History: Reports: Coronary Artery Bypass GI Surgical History: Reports: Hernia, Inguinal Musculoskeletal Surgical History: Reports: Carpal Tunnel Other Musculoskeletal Surgeries/Procedures:: Carpal tunnel repair. Social & Family History - Family History Family Medical History: No Pertinent Family History - Tobacco Use Tobacco Use Status *Q: Unknown Ever Used Tobacco - Caffeine Use Caffeine Use: Reports: Coffee - Living Situation & Occupation Living situation: Reports: , with Spouse, with Family (disabled son) Occupation: Retired ED ROS GENERAL - Review of Systems Review Of Systems: Comprehensive ROS is negative, except as noted in HPI. ED EXAM, GENERAL - Physical Exam Exam: See Below Exam Limited By: No Limitations General Appearance: Alert, No Apparent Distress Head: Normocephalic Neck: Normal Inspection, Supple, Non-Tender, Full Range of Motion Respiratory/Chest: No Respiratory Distress, Lungs Clear, Normal Breath Sounds Cardiovascular: Regular Rate, Rhythm, No Edema, No JVD GI/Abdominal: Normal Bowel Sounds, Soft, Non-Tender, No Organomegaly Back Exam: Normal Inspection Extremities: Normal Inspection, Normal Range of Motion, Non-Tender, No Pedal Edema Neurological: Alert, Oriented Psychiatric: Normal Affect, Normal Mood Skin Exam: Warm, Dry, Normal Color Lymphatic: No Adenopathy #1 Interpretation EKG Date: 03/18/21 Rhythm: NSR [place]: Normal ST-T: Normal QT: Normal Comparison: NA - No Prior EKG EKG Interpretation Comments: Normal sinus rhythm without any ST or T wave changes. Course - Vital Signs Text/Narrative:: Patient is feeling better after IV fluids. Her potassium and other lab work is normal. Patient does have +1 leukocytes in her urine for which I will place her on Macrobid for a few day course. Patient is chest pain appears to be chest wall in nature and is worse when I push on her upper chest. Her troponin was negative. With a normal EKG I am not worried this cardiac event. Patient's extremity pain has improved and may be due to being somewhat dehydrated. I am uncertain what else could be causing this. I am recommending she follow-up with her PCP for recheck if symptoms continue this Friday. She may always return to ER if worse. Last Recorded V/S: Last Vital Signs Temp 97.4 F 03/17/21 22:31 Pulse 61 03/17/21 22:31 Resp 18 03/17/21 22:31 BP 178/71 H 03/17/21 22:31 Pulse Ox 98 03/17/21 22:31 - Orders/Labs/Meds Orders: Active Orders 24 hr Category Date Time Status EKG Documentation Completion [RC] ASDIRECTED Care 03/17/21 22:38 Active Peripheral IV Care [RC] . DIRECTED Care 03/17/21 22:43 Active Sodium Chloride 0.9% [Normal Saline] 1,000 ml Med 03/17/21 22:43 Active IV ONETIME Sodium Chloride 0.9% [Saline Flush] Med 03/17/21 22:42 Active 10 ml FLUSH ASDIRECTED PRN Peripheral IV Insertion Adult [OM.PC] Routine Oth 03/17/21 22:43 Ordered EKG 12 Lead [EK] Stat Ther 03/17/21 22:38 Ordered Medication Orders Sodium Chloride (Normal Saline) 1,000 mls @ 250 mls/hr IV ONETIME ONE Stop: 03/18/21 02:42 Last Admin: 03/17/21 23:10 Dose: 250 mls/hr Documented by: RASHAD Sodium Chloride (Sodium Chloride 0.9% 10 Ml Syringe) 10 ml FLUSH ASDIRECTED PRN PRN Reason: Keep Vein Open Last Admin: 03/17/21 23:10 Dose: 10 ml Documented by: RASHAD Labs: Laboratory Tests 03/17/21 03/17/21 03/17/21 Range/Units 23:00 23:00 23:00 WBC 5.49 (3.98-10.04) K/mm3 RBC 4.10 (3.98-5.22) M/mm3 Hgb 11.1 L (11.2-15.7) gm/dl Hct 35.1 (34.1-44.9) % MCV 85.6 (79.4-94.8) fl MCH 27.1 (25.6-32.2) pg MCHC 31.6 L (32.2-35.5) g/dl RDW Std Deviation 45.2 (36.4-46.3) fL Plt Count 216 (182-369) K/mm3 MPV 9.3 L (9.4-12.3) fl Neutrophils % (Manual) 63 H (40-60) % Band Neutrophils % 0 (0-10) % Lymphocytes % (Manual) 33 (20-40) % Atypical Lymphs % 0 % Monocytes % (Manual) 2 (2-10) % Eosinophils % (Manual) 2 (0.7-5.8) % Basophils % (Manual) 0 L (0.1-1.2) Platelet Estimate Adequate RBC Morph Comment Normal Sodium 140 (136-145) mEq/L Potassium 4.0 (3.5-5.1) mEq/L Chloride 103 (98-107) mEq/L Carbon Dioxide 28 (21-32) mEq/L Anion Gap 13.0 (5-15) BUN 29 H (7-18) mg/dL Creatinine 1.1 H (0.55-1.02) mg/dL Est Cr Clr Drug Dosing 28.32 mL/min Estimated GFR (MDRD) 48 (>60) mL/min BUN/Creatinine Ratio 26.4 H (14-18) Glucose 167 H (70-99) mg/dL Lactic Acid 1.0 (0.4-2.0) mmol/L Calcium 8.4 L (8.5-10.1) mg/dL Total Bilirubin 0.3 (0.2-1.0) mg/dL AST 19 (15-37) U/L ALT 17 (14-59) U/L Alkaline Phosphatase 143 H (46-116) U/L CK-MB (CK-2) 2.0 (0-3.6) ng/ml Troponin I < 0.017 (0.00-0.056) ng/mL Total Protein 7.6 (6.4-8.2) g/dl Albumin 3.5 (3.4-5.0) g/dl Globulin 4.1 gm/dL Albumin/Globulin Ratio 0.9 L (1-2) Urine Color (Yellow) Urine Appearance (Clear) Urine pH (5.0-8.0) Ur Specific [place] (1.005-1.030) Urine Protein (Negative) Urine Glucose (UA) (Negative) Urine Ketones (Negative) Urine Occult Blood (Negative) Urine Nitrite (Negative) Urine Bilirubin (Negative) Urine Urobilinogen (0.2-1.0) Ur Leukocyte Esterase (Negative) 03/18/21 Range/Units 00:57 WBC (3.98-10.04) K/mm3 RBC (3.98-5.22) M/mm3 Hgb (11.2-15.7) gm/dl Hct (34.1-44.9) % MCV (79.4-94.8) fl MCH (25.6-32.2) pg MCHC (32.2-35.5) g/dl RDW Std Deviation (36.4-46.3) fL Plt Count (182-369) K/mm3 MPV (9.4-12.3) fl Neutrophils % (Manual) (40-60) % Band Neutrophils % (0-10) % Lymphocytes % (Manual) (20-40) % Atypical Lymphs % % Monocytes % (Manual) (2-10) % Eosinophils % (Manual) (0.7-5.8) % Basophils % (Manual) (0.1-1.2) Platelet Estimate RBC Morph Comment Sodium (136-145) mEq/L Potassium (3.5-5.1) mEq/L Chloride (98-107) mEq/L Carbon Dioxide (21-32) mEq/L Anion Gap (5-15) BUN (7-18) mg/dL Creatinine (0.55-1.02) mg/dL Est Cr Clr Drug Dosing mL/min Estimated GFR (MDRD) (>60) mL/min BUN/Creatinine Ratio (14-18) Glucose (70-99) mg/dL Lactic Acid (0.4-2.0) mmol/L Calcium (8.5-10.1) mg/dL Total Bilirubin (0.2-1.0) mg/dL AST (15-37) U/L ALT (14-59) U/L Alkaline Phosphatase (46-116) U/L CK-MB (CK-2) (0-3.6) ng/ml Troponin I (0.00-0.056) ng/mL Total Protein (6.4-8.2) g/dl Albumin (3.4-5.0) g/dl Globulin gm/dL Albumin/Globulin Ratio (1-2) Urine Color Yellow (Yellow) Urine Appearance Clear (Clear) Urine pH 6.0 (5.0-8.0) Ur Specific [place] 1.020 (1.005-1.030) Urine Protein Negative (Negative) Urine Glucose (UA) Negative (Negative) Urine Ketones Negative (Negative) Urine Occult Blood Trace-lysed H (Negative) Urine Nitrite Negative (Negative) Urine Bilirubin Negative (Negative) Urine Urobilinogen 0.2 (0.2-1.0) Ur Leukocyte Esterase 1+ H (Negative) Meds: Medications Generic Name Dose Route Start Last Admin Trade Name Freq PRN Reason Stop Dose Admin Sodium Chloride 1,000 mls @ 250 mls/hr 03/17/21 22:43 03/17/21 23:10 Normal Saline IV 03/18/21 02:42 250 mls/hr ONETIME ONE Administration Sodium Chloride 10 ml 03/17/21 22:42 03/17/21 23:10 Sodium Chloride 0.9% 10 Ml Syringe FLUSH 10 ml ASDIRECTED PRN Administration Keep Vein Open Discontinued Medications Generic Name Dose Route Start Last Admin Trade Name Freq PRN Reason Stop Dose Admin Nitrofurantoin Macrocrystals 100 mg 03/18/21 01:35 Nitrofurantoin Monohydrate/Macrocrystalline 100 Mg Cap PO 03/18/21 01:36 ONETIME ONE Departure - Departure Time of Disposition: 01:47 Disposition: Home, Self-Care 01 Condition: Good Clinical Impression: Atypical chest pain, Muscle ache of extremity, UTI, Urinary tract infectious disease - Discharge Information Instructions: Muscle Pain, Adult, Nonspecific Chest Pain, Adult Referrals: Sandie Bhagat, CHEMISTRY LECTURER [Primary Care Provider] - Additional Instructions: Increase fluids. Follow-up with PCP on Friday if not improving. Return to ER anytime if worse. Sepsis Event Note (ED) - Evaluation Sepsis Screening Result: No Definite Risk - Focused Exam Vital Signs: Vital Signs Temp Pulse Resp BP Pulse Ox 03/17/21 22:31 97.4 F 61 18 178/71 H 98 - My Orders Last 24 Hours: My Active Orders 03/17/21 22:38 EKG Documentation Completion [RC] ASDIRECTED EKG 12 Lead [EK] Stat 03/17/21 22:42 Sodium Chloride 0.9% [Saline Flush] 10 ml FLUSH ASDIRECTED PRN 03/17/21 22:43 Peripheral IV Care [RC] . DIRECTED Sodium Chloride 0.9% [Normal Saline] 1,000 ml IV ONETIME Peripheral IV Insertion Adult [OM.PC] Routine - Assessment/Plan Last 24 Hours: My Active Orders 03/17/21 22:38 EKG Documentation Completion [RC] ASDIRECTED EKG 12 Lead [EK] Stat 03/17/21 22:42 Sodium Chloride 0.9% [Saline Flush] 10 ml FLUSH ASDIRECTED PRN 03/17/21 22:43 Peripheral IV Care [RC] . DIRECTED Sodium Chloride 0.9% [Normal Saline] 1,000 ml IV ONETIME Peripheral IV Insertion Adult [OM.PC] Routine
== END 2021-03-18 02:14 | disposition home or self-care (01) ==
LOC: JD.ED 22:20
DX: R07.89 Other chest pain (principal); N39.0 Urinary tract infection, site not specified; I25.10 Atherosclerotic heart disease of native coronary artery without angina pectoris; E78.00 Pure hypercholesterolemia, unspecified; I10 Essential (primary) hypertension; J44.9 Chronic obstructive pulmonary disease, unspecified; K21.9 Gastro-esophageal reflux disease without esophagitis; E11.9 Type 2 diabetes mellitus without complications; Z88.0 Allergy status to penicillin; Z88.5 Allergy status to narcotic agent; Z91.041 Radiographic dye allergy status; Z79.899 Other long term (current) drug therapy; Z79.82 Long term (current) use of aspirin
CPT/HCPCS: 36415; 80053; 81003; 82553; 83605; 84484; 85007; 85027; 93005; 99285; A9270; J7030; 93010; 99284

== ENCOUNTER 2021-04-04 02:15 | Emergency (ER) | payer MEDICARE, OTHER ==
[2021-04-04 02:28] VITALS: BP 160/77; PULSE 64
--- NOTE | 2021-04-04 02:38 | EDM.PDOC ---
ED HPI GENERAL MEDICAL PROBLEM - General Chief Complaint: ENT Problem Stated Complaint: THROAT COMPLAINT Time Seen by Provider: 04/04/21 02:29 - History of Present Illness INITIAL COMMENTS - FREE TEXT/NARRATIVE: 80-year-old female presents the emergency room with burning sensation in her throat. 20 to 30 minutes prior to arrival patient was taking some of her vitamins she thinks she was taking a fiber supplement then washed it down some water. And after she drank the water she developed burping sensation and after this she had a burning sensation in the back of her throat. The patient has had several episodes like this in the recent past. The patient does take omeprazole. Patient denies any other complaints at this time she has not had any fevers or chills. This episode was not associated with any breathing difficulties or shortness of breath. Throat Pain Score (Numeric/FACES): 6 - Related Data Allergies Allergy/AdvReac Type Severity Reaction Status Date / Time acetaminophen [From Tylenol] Allergy Severe Swelling Verified 04/04/21 02:28 Iodinated Contrast Media Allergy Severe Swelling Verified 04/04/21 02:28 [Iodinated Contrast Media - IV Dye] morphine Allergy Severe Hives Verified 04/04/21 02:28 fluticasone propionate AdvReac Severe Tachycardia Verified 04/04/21 02:28 [From Advair Diskus] Penicillins AdvReac Severe Anxiety Verified 04/04/21 02:28 prednisone AdvReac Severe Gi Bleeding Verified 04/04/21 02:28 salmeterol xinafoate AdvReac Severe Tachycardia Verified 04/04/21 02:28 [From Advair Diskus] Home Meds: Home Meds Metoprolol Tartrate [Lopressor] 100 mg PO BID 08/13/14 [History] amLODIPine [Norvasc] 5 mg PO DAILY 08/13/14 [History] atorvaSTATin [Lipitor] 20 mg PO DAILY 08/13/14 [History] glipiZIDE [Glucotrol] 20 mg PO BID 08/13/14 [History] Aspirin [Adult Low Dose Aspirin EC] 81 mg PO DAILY 07/17/15 [History] Omeprazole 20 mg PO DAILY #10 cap.sr 12/29/17 [Rx] Furosemide [Lasix] 20 mg PO DAILY 08/07/18 [History] Losartan [Cozaar] 50 mg PO DAILY 08/07/18 [History] Linagliptin [Tradjenta] 5 mg PO DAILY 03/03/19 [History] Potassium Chloride 20 meq PO DAILY 04/11/20 [History] Cyanocobalamin (Vitamin B12) [Vitamin B12] 1,000 mcg PO DAILY 01/21/21 [History] Saccharomyces Boulardii [Florastor] 250 mg PO DAILY 01/21/21 [History] Ubidecarenone [Co Q-10] 100 mg PO DAILY 01/21/21 [History] Sucralfate [Carafate] 1 gm PO ASDIRECTED #28 tab 04/04/21 [Rx] Past Medical History HEENT History: Reports: Allergic Rhinitis, Glaucoma Cardiovascular History: Reports: CAD, High Cholesterol, Hypertension Respiratory History: Reports: Asthma, COPD Gastrointestinal History: Reports: Chronic Diarrhea, GERD, PUD Other Gastrointestinal History: Left inguinal hernia repair Musculoskeletal History: Reports: Back Pain, Chronic Neurological History: Reports: Vertigo Endocrine/Metabolic History: Reports: Diabetes, Type II - Past Surgical History HEENT Surgical History: Reports: Cataract Surgery, LASIK Cardiovascular Surgical History: Reports: Coronary Artery Bypass GI Surgical History: Reports: Hernia, Inguinal Musculoskeletal Surgical History: Reports: Carpal Tunnel Other Musculoskeletal Surgeries/Procedures:: Carpal tunnel repair. Social & Family History - Family History Family Medical History: No Pertinent Family History - Caffeine Use Caffeine Use: Reports: Coffee - Living Situation & Occupation Living situation: Reports: , with Spouse, with Family (disabled son) Occupation: Retired ED ROS GENERAL - Review of Systems Review Of Systems: See Below Constitutional: Reports: No Symptoms HEENT: Reports: Throat Pain Respiratory: Reports: No Symptoms Cardiovascular: Reports: No Symptoms Endocrine: Reports: No Symptoms GI/Abdominal: Reports: No Symptoms : Reports: No Symptoms Musculoskeletal: Reports: No Symptoms Skin: Reports: No Symptoms Neurological: Reports: No Symptoms ED EXAM, GENERAL - Physical Exam Exam: See Below Exam Limited By: No Limitations General Appearance: Alert, No Apparent Distress Ears: Normal External Exam, Normal Canal, Hearing Grossly Normal, Normal TMs Nose: Normal Inspection, Normal Mucosa, No Blood Throat/Mouth: Normal Inspection, Normal Lips, Normal Teeth, Normal Gums, Normal Oropharynx, Normal Voice, No Airway Compromise Head: Atraumatic, Normocephalic Neck: Normal Inspection, Supple, Non-Tender, Full Range of Motion. No: Lymphadenopathy (L), Lymphadenopathy (R) Respiratory/Chest: No Respiratory Distress, Lungs Clear, Normal Breath Sounds Cardiovascular: Normal Peripheral Pulses, Regular Rate, Rhythm, No Edema GI/Abdominal: Normal Bowel Sounds, Soft, Tender (She has some mild to moderate epigastric discomfort with palpation). No: Other Back Exam: Normal Inspection. No: CVA Tenderness (L), CVA Tenderness (R) Course - Vital Signs Last Recorded V/S: Last Vital Signs Temp 35.8 C L 04/04/21 02:25 Pulse 64 04/04/21 02:25 Resp 18 04/04/21 02:25 BP 160/77 H 04/04/21 02:25 Pulse Ox 99 04/04/21 02:25 - Orders/Labs/Meds Meds: Medications Discontinued Medications Generic Name Dose Route Start Last Admin Trade Name Freq PRN Reason Stop Dose Admin Al Hydroxide/Mg Hydroxide 30 0 ml 04/04/21 02:49 04/04/21 02:55 ml/ Lidocaine HCl 15 ml PO 04/04/21 02:50 45 ml ONETIME ONE Administration Sucralfate 1 gm 04/04/21 04:21 04/04/21 04:38 Sucralfate Suspension 1 Gm/10 Ml Cup PO 04/04/21 04:22 1 gm ONETIME ONE Administration - Re-Assessments/Exams Free Text/Narrative Re-Assessment/Exam: 04/04/21 05:06 Patient had partial relief with a GI cocktail and a little more relief with Carafate. At this point we will start her on Carafate 4 times daily and have her follow-up in the clinic Departure - Departure Time of Disposition: 05:07 Disposition: Home, Self-Care 01 Clinical Impression: Acid reflux - Discharge Information Referrals: Sandie Bhagat NURSING SURGICAL SERVICES DIRECTOR [Primary Care Provider] - Forms: ED Department Discharge Additional Instructions: Return to the emergency room with any questions problems or worsening symptoms. Be sure and take your omeprazole 30 to 60 minutes before your morning meal. You have been started on Carafate, or sucralfate. He will take this 4 times a day for a week to see if it helps. It should be taken just before your morning midday and evening meals as well as bedtime. While taking this medication use caution with your furosemide, or Lasix separate the ingestion of these 2 medications by at least 2 hours. Follow-up in the clinic in 1 week for recheck. Sepsis Event Note (ED) - Evaluation Sepsis Screening Result: No Definite Risk - Focused Exam Vital Signs: Vital Signs Temp Pulse Resp BP Pulse Ox 04/04/21 02:25 35.8 C L 64 18 160/77 H 99
[2021-04-04] MEDS ORDERED: Alum Hydrox/Mag Hydrox/Simeth 30 ML, Lidocaine 2% 15 ML PO ONE ×2 (02:49)
[2021-04-04] MEDS ORDERED: Sucralfate Suspension 1 GM/10 ML Cup PO ONE (04:21)
== END 2021-04-04 05:23 | disposition home or self-care (01) ==
LOC: JD.ED 02:15
DX: K21.9 Gastro-esophageal reflux disease without esophagitis (principal); I25.10 Atherosclerotic heart disease of native coronary artery without angina pectoris; E78.00 Pure hypercholesterolemia, unspecified; I10 Essential (primary) hypertension; J44.9 Chronic obstructive pulmonary disease, unspecified; E11.9 Type 2 diabetes mellitus without complications; Z79.82 Long term (current) use of aspirin; Z79.899 Other long term (current) drug therapy; Z88.5 Allergy status to narcotic agent; Z91.041 Radiographic dye allergy status; Z88.8 Allergy status to other drugs, medicaments and biological substances; Z88.0 Allergy status to penicillin
CPT/HCPCS: 99283; A9270

== ENCOUNTER 2021-12-10 00:13 | Emergency (ER) | payer MEDICARE, OTHER ==
[2021-12-10 00:37] VITALS: BP 156/67; PULSE 74
== END 2021-12-10 02:18 | disposition home or self-care (01) ==
LOC: JD.ED 00:13
DX: R09.89 Other specified symptoms and signs involving the circulatory and respiratory systems (principal); I25.10 Atherosclerotic heart disease of native coronary artery without angina pectoris; E78.00 Pure hypercholesterolemia, unspecified; I10 Essential (primary) hypertension; J44.9 Chronic obstructive pulmonary disease, unspecified; E11.9 Type 2 diabetes mellitus without complications; K21.9 Gastro-esophageal reflux disease without esophagitis; Z88.0 Allergy status to penicillin; Z88.5 Allergy status to narcotic agent; Z91.041 Radiographic dye allergy status; Z88.8 Allergy status to other drugs, medicaments and biological substances; Z79.82 Long term (current) use of aspirin; Z79.899 Other long term (current) drug therapy; Z95.1 Presence of aortocoronary bypass graft
CPT/HCPCS: 99283

== ENCOUNTER 2022-05-26 22:04 | Emergency (ER) | payer MEDICARE, OTHER ==
[2022-05-26] MEDS ORDERED: Sodium Chloride 0.9% 10 ML Syringe FLUSH PRN (22:53)
[2022-05-26] MEDS ORDERED: Aspirin 81 MG Tab.Chew PO ONE (23:06)
[2022-05-27 00:11] VITALS: BP 124/64; PULSE 68
== END 2022-05-27 00:09 | disposition home or self-care (01) ==
LOC: JD.ED 22:04
DX: R07.9 Chest pain, unspecified (principal); I10 Essential (primary) hypertension; I25.10 Atherosclerotic heart disease of native coronary artery without angina pectoris; E78.00 Pure hypercholesterolemia, unspecified; J44.9 Chronic obstructive pulmonary disease, unspecified; K21.9 Gastro-esophageal reflux disease without esophagitis; E11.9 Type 2 diabetes mellitus without complications; Z88.6 Allergy status to analgesic agent; Z91.041 Radiographic dye allergy status; Z88.5 Allergy status to narcotic agent; Z88.8 Allergy status to other drugs, medicaments and biological substances; Z88.0 Allergy status to penicillin; Z79.82 Long term (current) use of aspirin; Z79.84 Long term (current) use of oral hypoglycemic drugs; Z79.899 Other long term (current) drug therapy; Z95.1 Presence of aortocoronary bypass graft
CPT/HCPCS: 36415; 71045; 80053; 83735; 84484; 85025; 85379; 85610; 93005; 99285; A9270; J3490; 93010; 99284

== ENCOUNTER 2022-07-19 12:38 | Emergency (ER) | payer MEDICARE, OTHER ==
[2022-07-19] MEDS ORDERED: Sodium Chloride 0.9% 10 ML Syringe FLUSH PRN (12:55)
[2022-07-19 18:29] VITALS: BP 158/78; PULSE 59
== END 2022-07-19 17:15 | disposition home or self-care (01) ==
LOC: JD.ED 12:38
DX: R07.89 Other chest pain (principal); I25.10 Atherosclerotic heart disease of native coronary artery without angina pectoris; E78.00 Pure hypercholesterolemia, unspecified; I10 Essential (primary) hypertension; J44.9 Chronic obstructive pulmonary disease, unspecified; E11.9 Type 2 diabetes mellitus without complications; K21.9 Gastro-esophageal reflux disease without esophagitis; Z91.041 Radiographic dye allergy status; Z88.5 Allergy status to narcotic agent; Z88.0 Allergy status to penicillin; Z88.8 Allergy status to other drugs, medicaments and biological substances; Z79.82 Long term (current) use of aspirin; Z79.899 Other long term (current) drug therapy
CPT/HCPCS: 36415; 71045; 80053; 84484; 85025; 93005; 99285; J3490

== ENCOUNTER 2022-08-26 16:57 | Emergency (ER) | payer MEDICARE, OTHER ==
[2022-08-26] MEDS ORDERED: Sodium Chloride 0.9% 10 ML Syringe FLUSH PRN (17:20)
[2022-08-26] MEDS ORDERED: Lidocaine 1% with EPINEPHrine 1:100,000 10 ML MDV INJECT ONE (17:42)
[2022-08-26] MEDS ORDERED: HYDROmorphone 0.5 MG/0.5 ML Syringe IVPUSH ONE (17:42)
[2022-08-26] MEDS ORDERED: Lidocaine 1% 10 ML MDV INJECT ONE (17:58)
[2022-08-27] MEDS ORDERED: Metoclopramide 10 MG/2 ML SDV IVPUSH ONE (01:22)
[2022-08-27] MEDS ORDERED: HYDROmorphone 0.5 MG/0.5 ML Syringe IVPUSH ONE ×2 (01:22→08:06)
[2022-08-27 03:52] VITALS: BP 141/66; PULSE 72
== END 2022-08-27 09:50 | disposition home or self-care (01) ==
LOC: JD.ED 16:57
DX: S06.6X0A Traumatic subarachnoid hemorrhage without loss of consciousness, initial encounter (principal); S01.01XA Laceration without foreign body of scalp, initial encounter; S01.81XA Laceration without foreign body of other part of head, initial encounter; S16.1XXA Strain of muscle, fascia and tendon at neck level, initial encounter; S80.212A Abrasion, left knee, initial encounter; I25.10 Atherosclerotic heart disease of native coronary artery without angina pectoris; J44.9 Chronic obstructive pulmonary disease, unspecified; E78.00 Pure hypercholesterolemia, unspecified; I10 Essential (primary) hypertension; E11.9 Type 2 diabetes mellitus without complications; Z88.6 Allergy status to analgesic agent; Z91.041 Radiographic dye allergy status; Z88.0 Allergy status to penicillin; Z88.8 Allergy status to other drugs, medicaments and biological substances; Z79.82 Long term (current) use of aspirin; W10.9XXA Fall (on) (from) unspecified stairs and steps, initial encounter
CPT/HCPCS: 12001; 36415; 70450; 70486; 72125; 73564; 80053; 84484; 85025; 93005; 96374; 96375; 96376; 99284; J1170; J2765; J3490

== ENCOUNTER 2022-11-02 21:11 | Emergency (ER) | payer MEDICARE, OTHER ==
[2022-11-02 21:33] VITALS: BP 128/54; PULSE 63
[2022-11-02] MEDS ORDERED: Sodium Chloride 0.9% 10 ML Syringe FLUSH PRN (21:35)
[2022-11-02 21:55] LABS: ESTIMATED GFR 41 mL/min (>60)
[2022-11-02] MEDS ORDERED: Aspirin 81 MG Tab.Chew PO ONE (22:00)
== END 2022-11-03 01:55 | disposition home or self-care (01) ==
LOC: JD.ED 21:11
DX: R07.89 Other chest pain (principal); K21.9 Gastro-esophageal reflux disease without esophagitis; E11.9 Type 2 diabetes mellitus without complications; J44.9 Chronic obstructive pulmonary disease, unspecified; I25.10 Atherosclerotic heart disease of native coronary artery without angina pectoris; E78.00 Pure hypercholesterolemia, unspecified; I10 Essential (primary) hypertension; Z88.8 Allergy status to other drugs, medicaments and biological substances; Z91.041 Radiographic dye allergy status; Z88.5 Allergy status to narcotic agent; Z88.0 Allergy status to penicillin; Z79.82 Long term (current) use of aspirin; Z79.899 Other long term (current) drug therapy
CPT/HCPCS: 36415; 71045; 80053; 83690; 83735; 83880; 84484; 85025; 85379; 85610; 85730; 93005; 99285; A9270; J3490

== ENCOUNTER 2022-11-20 15:46 | Inpatient (IN) | payer MEDICARE, OTHER ==
[2022-11-20] MEDS ORDERED: methylPREDNISolone Sodium Succinate 125 MG/2 ML SDV IVPUSH ONE (15:56)
[2022-11-20] MEDS: Albuterol 0.083% 2.5 MG/3 ML Neb Soln NEB SCH ×3 (16:01→16:24)
[2022-11-20 16:44] LABS: ESTIMATED GFR 50 mL/min (>60)
[2022-11-20] MEDS ORDERED: Furosemide 40 MG/4 ML VIAL IVPUSH ONE (17:15)
[2022-11-20 17:34] LABS: CORONAVIRUS COVID-19 NAA NEGATIVE (NEGATIVE)
[2022-11-20] MEDS ORDERED: traMADol 50 MG Tab PO PRN (17:40)
[2022-11-20] MEDS ORDERED: LORazepam 1 MG Tab PO PRN (17:40)
[2022-11-20] MEDS ORDERED: Albuterol/Ipratropium 3.0-0.5 MG/3 ML Neb Soln NEB PRN (17:45)
[2022-11-20] MEDS ORDERED: Docusate Sodium 100 MG Cap PO PRN (17:45)
[2022-11-20] MEDS ORDERED: Sodium Chloride 0.9% 10 ML Syringe FLUSH PRN (17:45)
[2022-11-20] MEDS ORDERED: Ondansetron 4 MG Tab.DIS PO PRN (17:45)
[2022-11-20] MEDS ORDERED: Albuterol 6.7 GM Inhaler INH PRN (18:37)
[2022-11-20] MEDS ORDERED: Dicyclomine 10 MG Cap PO PRN (18:39)
[2022-11-20] MEDS ORDERED: Loperamide 2 MG Cap PO PRN (18:43)
[2022-11-20] MEDS: Heparin Sodium 5,000 Units/ML Vial SUBCUT SCH (18:52)
[2022-11-20] MEDS: Insulin Regular, Human 100 Units/ML 3 ML Vial SUBCUT SCH (18:53)
[2022-11-20] MEDS: Calcium Carbonate/Vitamin D3 600 MG-200 Units Tab PO SCH (20:25)
[2022-11-20] MEDS: Metoprolol Tartrate 50 MG Tab PO SCH (20:25)
[2022-11-20] MEDS: busPIRone 15 MG Tab PO SCH (20:26)
[2022-11-20] MEDS: Temazepam 7.5 MG Cap PO PRN (20:27)
[2022-11-20] MEDS: methylPREDNISolone Sodium Succinate 125 MG/2 ML SDV IVPUSH SCH (20:35)
[2022-11-20] MEDS ORDERED: BLOOD GLUCOSE METER CONTINUOUS SUBCUT SCH (21:00)
[2022-11-20] MEDS ORDERED: [UNRECOGNIZED DRUG - OTHER] SUBCUT SCH (21:00)
[2022-11-21] MEDS: Heparin Sodium 5,000 Units/ML Vial SUBCUT SCH ×3 (02:39→18:11)
[2022-11-21] MEDS: Pantoprazole 40 MG Tab.CR PO SCH (06:35)
[2022-11-21] MEDS: Levothyroxine 50 MCG Tab PO SCH (06:35)
[2022-11-21] MEDS ORDERED: Simethicone 80 MG Tab.Chew PO PRN (07:02)
[2022-11-21] MEDS: Insulin Regular, Human 100 Units/ML 3 ML Vial SUBCUT SCH ×3 (07:29→18:10)
[2022-11-21] MEDS ORDERED: Minoxidil 2.5 MG Tab PO SCH (09:00)
[2022-11-21] MEDS: methylPREDNISolone Sodium Succinate 125 MG/2 ML SDV IVPUSH SCH ×2 (09:05→20:41)
[2022-11-21] MEDS: Sertraline 50 MG Tab PO SCH (09:06)
[2022-11-21] MEDS: Cyanocobalamin (Vitamin B12) 1,000 MCG Tab PO SCH (09:07)
[2022-11-21] MEDS: Furosemide 20 MG Tab PO SCH (09:08)
[2022-11-21] MEDS: atorvaSTATin 20 MG Tab PO SCH (09:08)
[2022-11-21] MEDS: Aspirin 81 MG Tab.EC PO SCH (09:08)
[2022-11-21] MEDS: Potassium Chloride 20 MEQ Tab.ER PO SCH (09:09)
[2022-11-21] MEDS: Calcium Carbonate/Vitamin D3 600 MG-200 Units Tab PO SCH ×2 (09:09→20:41)
[2022-11-21] MEDS: busPIRone 15 MG Tab PO SCH ×2 (09:10→20:41)
[2022-11-21] MEDS: Losartan 100 MG Tab PO SCH (09:11)
[2022-11-21] MEDS: Metoprolol Tartrate 50 MG Tab PO SCH ×2 (09:14→20:42)
[2022-11-21] MEDS: MINOXIDIL 10 MG PO SCH (09:16)
[2022-11-21] MEDS ORDERED: Benzocaine 20% Topical Spray UD MUCMEM PRN (11:03)
[2022-11-21] MEDS: Temazepam 7.5 MG Cap PO PRN (20:50)
[2022-11-21] MEDS ORDERED: Famotidine 20 MG Tab PO SCH (21:00)
[2022-11-22] MEDS: Heparin Sodium 5,000 Units/ML Vial SUBCUT SCH ×2 (02:32→09:48)
[2022-11-22] MEDS: Levothyroxine 50 MCG Tab PO SCH (05:37)
[2022-11-22] MEDS: Pantoprazole 40 MG Tab.CR PO SCH ×2 (05:42→06:12)
[2022-11-22] MEDS: Insulin Regular, Human 100 Units/ML 3 ML Vial SUBCUT SCH ×2 (08:07→12:06)
[2022-11-22] MEDS: atorvaSTATin 20 MG Tab PO SCH (08:15)
[2022-11-22] MEDS: Aspirin 81 MG Tab.EC PO SCH (08:16)
[2022-11-22] MEDS: busPIRone 15 MG Tab PO SCH (08:16)
[2022-11-22] MEDS: methylPREDNISolone Sodium Succinate 125 MG/2 ML SDV IVPUSH SCH (08:16)
[2022-11-22] MEDS: Sertraline 50 MG Tab PO SCH (08:16)
[2022-11-22] MEDS: Cyanocobalamin (Vitamin B12) 1,000 MCG Tab PO SCH (08:16)
[2022-11-22] MEDS: Losartan 100 MG Tab PO SCH (08:17)
[2022-11-22] MEDS: Metoprolol Tartrate 50 MG Tab PO SCH (08:17)
[2022-11-22] MEDS: Potassium Chloride 20 MEQ Tab.ER PO SCH (08:17)
[2022-11-22] MEDS: Calcium Carbonate/Vitamin D3 600 MG-200 Units Tab PO SCH (08:17)
[2022-11-22] MEDS: Furosemide 20 MG Tab PO SCH (08:17)
[2022-11-22 08:18] VITALS: BP 169/55; PULSE 57
[2022-11-22] MEDS: MINOXIDIL 10 MG PO SCH (08:18)
[2022-11-26] MEDS ORDERED: CHOLECALCIFEROL PO SCH (09:00)
== END 2022-11-22 12:50 | disposition home or self-care (01) | DRG 291 ==
LOC: JD.ED 15:46 → JD.MS 17:45
PROVIDERS: ADMIT Internal Medicine; ATTEND Internal Medicine
DX: I11.0 Hypertensive heart disease with heart failure (principal); J96.21 Acute and chronic respiratory failure with hypoxia; J45.901 Unspecified asthma with (acute) exacerbation; J98.11 Atelectasis; I50.813 Acute on chronic right heart failure; E11.65 Type 2 diabetes mellitus with hyperglycemia; R74.01 Elevation of levels of liver transaminase levels; Z20.822 Contact with and (suspected) exposure to COVID-19; I08.1 Rheumatic disorders of both mitral and tricuspid valves; I25.10 Atherosclerotic heart disease of native coronary artery without angina pectoris; E78.00 Pure hypercholesterolemia, unspecified; M54.9 Dorsalgia, unspecified; G89.29 Other chronic pain; K21.9 Gastro-esophageal reflux disease without esophagitis; Z88.6 Allergy status to analgesic agent; Z91.041 Radiographic dye allergy status; Z88.5 Allergy status to narcotic agent; Z88.0 Allergy status to penicillin; Z79.82 Long term (current) use of aspirin; Z79.890 Hormone replacement therapy; Z79.899 Other long term (current) drug therapy; Z98.890 Other specified postprocedural states; Z98.49 Cataract extraction status, unspecified eye
CPT/HCPCS: 0241U; 36415; 71045; 71045-26; 80053; 82947; 83880; 84484; 85025; 86140; 93005; 93010; 93307; 94640; 94761; 96374; 96375; 97162-GP; 97166-GO; 99285; 99285-25; A9270-GY; J1644; J1815-GY; J1940; J2930; J7620-GY

== ENCOUNTER 2023-01-27 20:48 | Emergency (ER) | payer MEDICARE, OTHER ==
[2023-01-27 21:43] LABS: BASOPHILS ABSOLUTE AUTO 0.01 K/mm3 (0.01-0.08); BASOPHILS PERCENT AUTO 0.2 % (0.1-1.2); EOSINOPHILS ABSOLUTE AUTO 0.07 K/mm3 (0.04-0.36); EOSINOPHILS PERCENT AUTO 1.4 (0.7-5.8); HEMATOCRIT 32.7 % (34.1-44.9); HEMOGLOBIN 10.5 gm/dl (11.2-15.7); IMMATURE GRAN ABSOLUTE AUTO 0.01 K/mm3 (0.00-0.10); IMMATURE GRAN PERCENT AUTO 0.2 % (<=1.0); LYMPHOCYTES ABSOLUTE AUTO 1.28 K/mm3 (1.18-3.74); LYMPHOCYTES PERCENT AUTO 24.8 % (19.3-51.7); MEAN CORPUSCULAR HEMOGLOBIN 26.4 pg (25.6-32.2); MEAN CORPUSCULAR HGB CONC 32.1 g/dl (32.2-35.5); MEAN CORPUSCULAR VOLUME 82.2 fl (79.4-94.8); MEAN PLATELET VOLUME 9.9 fl (9.4-12.3); MONOCYTES ABSOLUTE AUTO 0.78 K/mm3 (0.24-0.36); MONOCYTES PERCENT AUTO 15.1 % (4.7-12.5); NEUTROPHILS ABSOLUTE AUTO 3.01 K/mm3 (1.56-6.13); NEUTROPHILS PERCENT AUTO 58.3 % (34.0-71.1); PLATELET COUNT,PLT 165 K/mm3 (182-369); RED BLOOD CELL COUNT 3.98 M/mm3 (3.98-5.22); WHITE BLOOD CELL COUNT,WBC 5.16 K/mm3 (3.98-10.04)
[2023-01-27 22:13] LABS: A/G RATIO 1.2 (1-2); ALANINE AMINOTRANSFERASE,ALT 22 U/L (14-59); ALBUMIN 3.9 g/dl (3.4-5.0); ALKALINE PHOSPHATASE 95 U/L (46-116); ANION GAP 14.1 (5-15); ASPARTATE AMNIOTRANSFERASE,AST 23 U/L (15-37); BILIRUBIN TOTAL 0.4 mg/dL (0.2-1.0); BLOOD UREA NITROGEN,BUN 26 mg/dL (7-18); BUN/CREATININE RATIO 18.6 (14-18); CARBON DIOXIDE,CO2 26 mEq/L (21-32); CHLORIDE,CL 103 mEq/L (98-107); CREATININE 1.4 mg/dL (0.55-1.02); ESTIMATED GFR 37 mL/min (>60); GLUCOSE RANDOM 68 mg/dL (70-99); MAGNESIUM 1.7 mg/dL (1.8-2.4); POTASSIUM,K 4.1 mEq/L (3.5-5.1); PROTEIN TOTAL,TP 7.1 g/dl (6.4-8.2); SODIUM,NA 139 mEq/L (136-145); TROPONIN I HIGH SENSITIVITY 6 pg/mL (<=51)
[2023-01-27 22:21] LABS: CALCIUM 8.6 mg/dL (8.5-10.1)
[2023-01-27] MEDS ORDERED: Magnesium Oxide 400 MG Tab PO ONE (22:23)
[2023-01-27 23:18] VITALS: BP 122/54; PULSE 63
== END 2023-01-27 23:36 | disposition home or self-care (01) ==
LOC: JD.ED 20:48
DX: R07.89 Other chest pain (principal); E11.9 Type 2 diabetes mellitus without complications; I25.810 Atherosclerosis of coronary artery bypass graft(s) without angina pectoris; I10 Essential (primary) hypertension; E78.00 Pure hypercholesterolemia, unspecified; J44.9 Chronic obstructive pulmonary disease, unspecified; K21.9 Gastro-esophageal reflux disease without esophagitis; Z88.6 Allergy status to analgesic agent; Z91.041 Radiographic dye allergy status; Z88.5 Allergy status to narcotic agent; Z88.8 Allergy status to other drugs, medicaments and biological substances; Z88.0 Allergy status to penicillin; Z79.82 Long term (current) use of aspirin; Z79.899 Other long term (current) drug therapy
CPT/HCPCS: 36415; 71045; 80053; 83735; 84484; 85025; 93005; 99285; A9270; 93010; 99283

== ENCOUNTER 2023-05-10 21:53 | Emergency (ER) | payer MEDICARE, OTHER ==
[2023-05-10 22:48] LABS: BASOPHILS PERCENT AUTO 0.3 % (0.0-1.0); EOSINOPHILS ABSOLUTE AUTO 0.1 K/mm3 (0.0-0.4); HEMATOCRIT 31.8 % (37.0-47.0); HEMOGLOBIN 10.5 gm/dl (12.0-16.0); IMMATURE GRAN ABSOLUTE AUTO 0.04 K/mm3 (0.00-0.05); IMMATURE GRAN PERCENT AUTO 0.5 % (0.0-0.4); LYMPHOCYTES ABSOLUTE AUTO 0.9 K/mm3 (1.0-4.8); MEAN CORPUSCULAR HEMOGLOBIN 27.1 pg (28.0-32.0); MEAN PLATELET VOLUME 9.5 fl (9.4-12.3); MONOCYTES ABSOLUTE AUTO 0.9 K/mm3 (0.0-0.8); MONOCYTES PERCENT AUTO 11.6 % (0.0-8.0); NEUTROPHILS ABSOLUTE AUTO 5.7 K/mm3 (1.8-7.7); NEUTROPHILS PERCENT AUTO 74.6 % (41.0-71.0); PLATELET COUNT,PLT 156 K/mm3 (150-400); RED BLOOD CELL COUNT 3.88 M/mm3 (4.10-5.30); WHITE BLOOD CELL COUNT,WBC 7.68 K/mm3 (3.9-11.3)
[2023-05-10 22:48] LABS: APPEARANCE,URINE CLEAR (Clear); BILIRUBIN,URINE NEGATIVE (Negative); COLOR,URINE YELLOW (Yellow); GLUCOSE,URINE NEGATIVE (Negative); KETONES,URINE TRACE (Negative); LEUKOCYTE ESTERASE,URINE NEGATIVE (Negative); NITRITE,URINE NEGATIVE (Negative); OCCULT BLOOD,URINE NEGATIVE (Negative); PH,URINE 5.5 (5.0-8.0); PROTEIN,URINE NEGATIVE (Negative); UROBILINOGEN,URINE 0.2 (0.2-1.0)
[2023-05-10 22:59] LABS: PROTHROMBIN TIME 9.8 SECONDS (9.7-12.0)
[2023-05-10 23:01] LABS: PTT,PARTIAL THROMBOPLSTIN TIME 26.2 SECONDS (21.7-31.4)
[2023-05-10 23:02] LABS: A/G RATIO 1.1 (1-2); ALBUMIN 3.9 g/dl (3.4-5.0); BILIRUBIN TOTAL 0.3 mg/dL (0.2-1.0); BUN/CREATININE RATIO 18.9 (14-18); CALCIUM 8.3 mg/dL (8.5-10.1); CREATININE 1.8 mg/dL (0.55-1.02); EST CRCL DRUG DOSING (CG) 16.71 mL/min; PROTEIN TOTAL,TP 7.5 g/dl (6.4-8.2)
[2023-05-10 23:07] LABS: INR < 0.93
[2023-05-10 23:23] LABS: INFLUENZA A NAA NEGATIVE (NEGATIVE); RESPIRATORY SYNCYTIAL VIR NAA NEGATIVE (NEGATIVE)
[2023-05-10 23:24] LABS: CORONAVIRUS COVID-19 NAA POSITIVE (NEGATIVE)
[2023-05-11 02:59] VITALS: BP 108/39; PULSE 70
== END 2023-05-11 02:45 | disposition home or self-care (01) ==
LOC: JD.ED 21:53
DX: U07.1 COVID-19 (principal); S09.90XA Unspecified injury of head, initial encounter; J06.9 Acute upper respiratory infection, unspecified; E11.9 Type 2 diabetes mellitus without complications; I25.10 Atherosclerotic heart disease of native coronary artery without angina pectoris; E78.00 Pure hypercholesterolemia, unspecified; I10 Essential (primary) hypertension; J44.9 Chronic obstructive pulmonary disease, unspecified; Z87.891 Personal history of nicotine dependence; Z79.82 Long term (current) use of aspirin; Z79.84 Long term (current) use of oral hypoglycemic drugs; Z79.899 Other long term (current) drug therapy; Z88.0 Allergy status to penicillin; Z88.8 Allergy status to other drugs, medicaments and biological substances; Z88.5 Allergy status to narcotic agent; Z91.041 Radiographic dye allergy status
CPT/HCPCS: 0241U; 36415; 70450; 73562; 80053; 81003; 82947; 85025; 85610; 85730; 87651; 99284; 99283

== ENCOUNTER 2023-09-17 17:50 | Inpatient (IN) | payer MEDICARE, OTHER ==
[2023-09-17 18:54] LABS: BASOPHILS PERCENT AUTO 0.1 % (0.0-1.0); HEMATOCRIT 37.6 % (37.0-47.0); HEMOGLOBIN 12.2 gm/dl (12.0-16.0); IMMATURE GRAN ABSOLUTE AUTO 0.03 K/mm3 (0.00-0.05); IMMATURE GRAN PERCENT AUTO 0.4 % (0.0-0.4); LYMPHOCYTES ABSOLUTE AUTO 0.4 K/mm3 (1.0-4.8); LYMPHOCYTES PERCENT AUTO 4.6 % (24.0-44.0); MEAN CORPUSCULAR HGB CONC 32.4 g/dl (32.0-36.0); MEAN CORPUSCULAR VOLUME 83.2 fl (83.0-99.0); MEAN PLATELET VOLUME 9.3 fl (9.4-12.3); MONOCYTES ABSOLUTE AUTO 0.7 K/mm3 (0.0-0.8); MONOCYTES PERCENT AUTO 8.1 % (0.0-8.0); NEUTROPHILS ABSOLUTE AUTO 7.2 K/mm3 (1.8-7.7); NEUTROPHILS PERCENT AUTO 86.8 % (41.0-71.0); PLATELET COUNT,PLT 152 K/mm3 (150-400); RED BLOOD CELL COUNT 4.52 M/mm3 (4.10-5.30); WHITE BLOOD CELL COUNT,WBC 8.28 K/mm3 (3.9-11.3)
[2023-09-17] MEDS: Ondansetron 4 MG/2 ML SDV IVPUSH ONE (18:56)
[2023-09-17 19:09] LABS: CORONAVIRUS COVID-19 NAA NEGATIVE (NEGATIVE); INFLUENZA A NAA NEGATIVE (NEGATIVE); RESPIRATORY SYNCYTIAL VIR NAA NEGATIVE (NEGATIVE)
[2023-09-17 19:22] LABS: A/G RATIO 1.1 (1-2); ANION GAP 16.5 (5-15); BILIRUBIN TOTAL 0.2 mg/dL (0.2-1.0); CALCIUM 8.7 mg/dL (8.5-10.1); EST CRCL DRUG DOSING (CG) 29.54 mL/min; POTASSIUM,K 3.5 mEq/L (3.5-5.1); PROTEIN TOTAL,TP 7.6 g/dl (6.4-8.2)
[2023-09-17] MEDS: 50% Dextrose in Water 50 ML Syringe IVPUSH ONE ×3 (19:25→22:21)
[2023-09-17 20:20] LABS: APPEARANCE,URINE CLEAR (Clear); BILIRUBIN,URINE NEGATIVE (Negative); COLOR,URINE YELLOW (Yellow); GLUCOSE,URINE 2+ (Negative); KETONES,URINE NEGATIVE (Negative); LEUKOCYTE ESTERASE,URINE NEGATIVE (Negative); NITRITE,URINE NEGATIVE (Negative); OCCULT BLOOD,URINE 1+ (Negative); PH,URINE 5.5 (5.0-8.0); PROTEIN,URINE NEGATIVE (Negative); UROBILINOGEN,URINE 0.2 (0.2-1.0)
[2023-09-17 20:23] LABS: BACTERIA,URINE FEW /hpf (FEW); MUCUS,URINE FEW /hpf (FEW); RBC,URINE 0-5 /hpf (0-5); SQUAMOUS EPITHELIAL CELLS,UR 0-5 /hpf (0-5); WBC,URINE 0-5 /hpf (0-5)
[2023-09-17] MEDS: 50% Dextrose in Water 50 ML Syringe ONE (22:21)
[2023-09-17] MEDS: Dextrose 10% in Water 1,000 ML IV SCH (22:34)
[2023-09-18] MEDS: 50% Dextrose in Water 50 ML Syringe IVPUSH PRN (01:46)
[2023-09-18] MEDS: Aspirin 81 MG Tab.EC PO SCH (09:00)
[2023-09-18] MEDS: Cyanocobalamin (Vitamin B12) 1,000 MCG Tab PO SCH (09:00)
[2023-09-18] MEDS: Dextrose 10% in Water 1,000 ML IV SCH (09:10)
[2023-09-18] MEDS: Glucagon,Human Recombinant 1 MG Vial IM ONE (09:36)
[2023-09-18] MEDS ORDERED: Dextrose 10% in Water 1,000 ML IV SCH (09:45)
[2023-09-18] MEDS: Ondansetron 4 MG/2 ML SDV IVPUSH PRN (10:56)
[2023-09-18 11:36] LABS: BASOPHILS PERCENT AUTO 0.1 % (0.0-1.0); EOSINOPHILS PERCENT AUTO 0.1 % (0.0-6.0); HEMATOCRIT 36.7 % (37.0-47.0); IMMATURE GRAN ABSOLUTE AUTO 0.03 K/mm3 (0.00-0.05); IMMATURE GRAN PERCENT AUTO 0.3 % (0.0-0.4); LYMPHOCYTES ABSOLUTE AUTO 0.4 K/mm3 (1.0-4.8); LYMPHOCYTES PERCENT AUTO 4.5 % (24.0-44.0); MEAN CORPUSCULAR HEMOGLOBIN 26.5 pg (28.0-32.0); MEAN CORPUSCULAR HGB CONC 32.7 g/dl (32.0-36.0); MEAN CORPUSCULAR VOLUME 81.2 fl (83.0-99.0); MEAN PLATELET VOLUME 9.4 fl (9.4-12.3); MONOCYTES PERCENT AUTO 9.8 % (0.0-8.0); NEUTROPHILS ABSOLUTE AUTO 8.4 K/mm3 (1.8-7.7); NEUTROPHILS PERCENT AUTO 85.2 % (41.0-71.0); PLATELET COUNT,PLT 158 K/mm3 (150-400); RED BLOOD CELL COUNT 4.52 M/mm3 (4.10-5.30); WHITE BLOOD CELL COUNT,WBC 9.88 K/mm3 (3.9-11.3)
[2023-09-18 11:52] LABS: A/G RATIO 1.1 (1-2); ALBUMIN 3.8 g/dl (3.4-5.0); ANION GAP 16.4 (5-15); BILIRUBIN TOTAL 0.5 mg/dL (0.2-1.0); BUN/CREATININE RATIO 18.8 (14-18); CALCIUM 8.2 mg/dL (8.5-10.1); CREATININE 0.8 mg/dL (0.55-1.02); EST CRCL DRUG DOSING (CG) 36.93 mL/min; POTASSIUM,K 3.4 mEq/L (3.5-5.1); PROTEIN TOTAL,TP 7.3 g/dl (6.4-8.2)
[2023-09-18 11:58] LABS: HEMOGLOBIN A1C 7.2 %
[2023-09-18] MEDS: traMADol 50 MG Tab PO ONE (13:47)
[2023-09-18] MEDS: Loperamide 2 MG Cap PO PRN (13:50)
[2023-09-18] MEDS: Benzocaine 20% Topical Spray UD MUCMEM ONE (18:51)
[2023-09-18] MEDS: FAMOTIDINE 40 MG PO SCH (21:14)
[2023-09-18] MEDS: Fluticasone NASAL Spray 16 GM Bottle NASBOTH SCH (21:14)
[2023-09-18] MEDS: Simethicone 80 MG Tab.Chew PO SCH (21:16)
[2023-09-18] MEDS: traMADol 50 MG Tab PO SCH (21:24)
[2023-09-18] MEDS: Phenol 1.4% Oral Spray 177 ML Bottle MUCMEM PRN (21:51)
[2023-09-19] MEDS ORDERED: Albuterol 6.7 GM Inhaler INH PRN (08:05)
[2023-09-19] MEDS ORDERED: Dicyclomine 10 MG Cap PO PRN (08:07)
[2023-09-19 08:23] LABS: ALBUMIN 3.5 g/dl (3.4-5.0); ANION GAP 16.3 (5-15); BILIRUBIN TOTAL 0.6 mg/dL (0.2-1.0); CALCIUM 8.1 mg/dL (8.5-10.1); CREATININE 0.9 mg/dL (0.55-1.02); EST CRCL DRUG DOSING (CG) 32.83 mL/min; PROTEIN TOTAL,TP 6.9 g/dl (6.4-8.2)
[2023-09-19 08:27] LABS: POTASSIUM,K 3.3 mEq/L (3.5-5.1)
[2023-09-19] MEDS: Pantoprazole 40 MG Tab.CR PO SCH (08:28)
[2023-09-19] MEDS: NIFEdipine 30 MG Tab.ER PO SCH (08:29)
[2023-09-19] MEDS: atorvaSTATin 20 MG Tab PO SCH (08:29)
[2023-09-19] MEDS: Potassium Bicarbonate/Cit Ac 20 MEQ Effervescent Tab PO SCH (08:29)
[2023-09-19] MEDS: ARIPiprazole 10 MG Tab PO SCH (08:29)
[2023-09-19] MEDS: Sertraline 50 MG Tab PO SCH (08:30)
[2023-09-19] MEDS: Levothyroxine 50 MCG Tab PO SCH (08:30)
[2023-09-19] MEDS: Furosemide 40 MG Tab PO SCH (08:30)
[2023-09-19] MEDS: Losartan 100 MG Tab PO SCH (08:31)
[2023-09-19] MEDS: Metoprolol Succinate 50 MG Tab.ER PO SCH (08:31)
[2023-09-19] MEDS ORDERED: CYANOCOBALAMIN PO SCH (09:00)
[2023-09-19] MEDS ORDERED: [UNRECOGNIZED DRUG - OTHER] PO SCH (09:00)
[2023-09-19] MEDS ORDERED: FOLIC ACID PO SCH (09:00)
[2023-09-19] MEDS: TRAMADOL 50 MG PO SCH (09:04)
[2023-09-19 10:59] LABS: BASOPHILS PERCENT AUTO 0.2 % (0.0-1.0); EOSINOPHILS ABSOLUTE AUTO 0.1 K/mm3 (0.0-0.4); EOSINOPHILS PERCENT AUTO 1.6 % (0.0-6.0); HEMATOCRIT 36.8 % (37.0-47.0); HEMOGLOBIN 12.3 gm/dl (12.0-16.0); IMMATURE GRAN ABSOLUTE AUTO 0.01 K/mm3 (0.00-0.05); IMMATURE GRAN PERCENT AUTO 0.2 % (0.0-0.4); LYMPHOCYTES ABSOLUTE AUTO 0.8 K/mm3 (1.0-4.8); MEAN CORPUSCULAR HEMOGLOBIN 27.2 pg (28.0-32.0); MEAN CORPUSCULAR HGB CONC 33.4 g/dl (32.0-36.0); MEAN CORPUSCULAR VOLUME 81.2 fl (83.0-99.0); MEAN PLATELET VOLUME 10.7 fl (9.4-12.3); MONOCYTES ABSOLUTE AUTO 0.7 K/mm3 (0.0-0.8); MONOCYTES PERCENT AUTO 14.7 % (0.0-8.0); NEUTROPHILS ABSOLUTE AUTO 2.8 K/mm3 (1.8-7.7); NEUTROPHILS PERCENT AUTO 64.3 % (41.0-71.0); PLATELET COUNT,PLT 131 K/mm3 (150-400); RED BLOOD CELL COUNT 4.53 M/mm3 (4.10-5.30); WHITE BLOOD CELL COUNT,WBC 4.41 K/mm3 (3.9-11.3)
[2023-09-19 11:24] LABS: SLIDE REVIEW ABNORMAL SMEAR
[2023-09-19] MEDS: traMADol 50 MG Tab PO SCH (14:28)
[2023-09-19] MEDS: Insulin Regular, Human 100 Units/ML 3 ML Vial SUBCUT SCH (18:58)
[2023-09-19] MEDS: Heparin Sodium 5,000 Units/ML Vial SUBCUT SCH (19:02)
[2023-09-19] MEDS: Famotidine 20 MG Tab PO SCH (20:59)
[2023-09-19] MEDS ORDERED: Latanoprost 0.005% Ophth Soln 2.5 ML Bottle EYEBOTH SCH (21:00)
[2023-09-20 06:57] LABS: BASOPHILS PERCENT AUTO 0.2 % (0.0-1.0); EOSINOPHILS ABSOLUTE AUTO 0.1 K/mm3 (0.0-0.4); EOSINOPHILS PERCENT AUTO 1.6 % (0.0-6.0); HEMATOCRIT 34.9 % (37.0-47.0); HEMOGLOBIN 11.5 gm/dl (12.0-16.0); IMMATURE GRAN ABSOLUTE AUTO 0.02 K/mm3 (0.00-0.05); IMMATURE GRAN PERCENT AUTO 0.4 % (0.0-0.4); LYMPHOCYTES ABSOLUTE AUTO 1.3 K/mm3 (1.0-4.8); LYMPHOCYTES PERCENT AUTO 25.6 % (24.0-44.0); MEAN CORPUSCULAR HEMOGLOBIN 26.7 pg (28.0-32.0); MEAN CORPUSCULAR VOLUME 81.2 fl (83.0-99.0); MEAN PLATELET VOLUME 9.4 fl (9.4-12.3); MONOCYTES ABSOLUTE AUTO 0.9 K/mm3 (0.0-0.8); MONOCYTES PERCENT AUTO 16.7 % (0.0-8.0); NEUTROPHILS ABSOLUTE AUTO 2.8 K/mm3 (1.8-7.7); NEUTROPHILS PERCENT AUTO 55.5 % (41.0-71.0); PLATELET COUNT,PLT 149 K/mm3 (150-400); WHITE BLOOD CELL COUNT,WBC 5.08 K/mm3 (3.9-11.3)
[2023-09-20 07:16] LABS: ALBUMIN 3.2 g/dl (3.4-5.0); ANION GAP 13.7 (5-15); BILIRUBIN TOTAL 0.4 mg/dL (0.2-1.0); CALCIUM 7.8 mg/dL (8.5-10.1); EST CRCL DRUG DOSING (CG) 29.54 mL/min; POTASSIUM,K 3.7 mEq/L (3.5-5.1); PROTEIN TOTAL,TP 6.4 g/dl (6.4-8.2)
[2023-09-20] MEDS: Furosemide 20 MG Tab PO SCH (08:32)
[2023-09-20 08:40] VITALS: PULSE 71
[2023-09-20 15:40] VITALS: BP 126/80
== END 2023-09-20 15:40 | disposition home or self-care (01) | DRG 638 ==
LOC: JD.ED 17:50 → JD.MS 23:28 → OBSVTOIN 09-19 10:30
PROVIDERS: ADMIT Internal Medicine; ATTEND Internal Medicine
PROC: 0D9670Z Drainage of Stomach with Drainage Device, Via Natural or Artificial Opening (ICD-10-PCS; principal; 2023-09-19)
DX: E11.649 Type 2 diabetes mellitus with hypoglycemia without coma (principal); F03.94 Unspecified dementia, unspecified severity, with anxiety; T38.3X5A Adverse effect of insulin and oral hypoglycemic [antidiabetic] drugs, initial encounter; I10 Essential (primary) hypertension; E03.9 Hypothyroidism, unspecified; F41.1 Generalized anxiety disorder; I25.10 Atherosclerotic heart disease of native coronary artery without angina pectoris; I25.810 Atherosclerosis of coronary artery bypass graft(s) without angina pectoris; J44.9 Chronic obstructive pulmonary disease, unspecified; J45.909 Unspecified asthma, uncomplicated; K52.9 Noninfective gastroenteritis and colitis, unspecified; M54.9 Dorsalgia, unspecified; G89.29 Other chronic pain; K31.89 Other diseases of stomach and duodenum; E11.43 Type 2 diabetes mellitus with diabetic autonomic (poly)neuropathy; K31.84 Gastroparesis; K21.9 Gastro-esophageal reflux disease without esophagitis; E78.00 Pure hypercholesterolemia, unspecified; Z88.0 Allergy status to penicillin; Z91.041 Radiographic dye allergy status; Z88.5 Allergy status to narcotic agent; Z79.84 Long term (current) use of oral hypoglycemic drugs; Z88.8 Allergy status to other drugs, medicaments and biological substances; Z79.51 Long term (current) use of inhaled steroids; Z95.1 Presence of aortocoronary bypass graft; Z98.890 Other specified postprocedural states; Z98.49 Cataract extraction status, unspecified eye; Z11.52 Encounter for screening for COVID-19; Z79.82 Long term (current) use of aspirin; Z79.899 Other long term (current) drug therapy
CPT/HCPCS: 0241U; 36415; 71045; 74018; 74019; 80053; 81001; 82947; 83036; 85025; 87641; 96361; 96374; 96375; 96376; 99285; 99222; 99232; 99239; 99283; A9270-GY; C1758; J1610; J1644; J1815-GY; J2405; J3490; J7042

== ENCOUNTER 2023-11-29 23:03 | Emergency (ER) | payer MEDICARE, OTHER ==
[2023-11-29] MEDS: HYDROmorphone 0.5 MG/0.5 ML Syringe IVPUSH ONE (23:55)
[2023-11-29] MEDS: Sodium Chloride 0.9% 10 ML Syringe FLUSH PRN (23:56)
[2023-11-30 01:52] VITALS: BP 105/59; PULSE 61
== END 2023-11-30 01:08 | disposition home or self-care (01) ==
LOC: JD.ED 23:03
DX: M99.71 Connective tissue and disc stenosis of intervertebral foramina of cervical region (principal); I11.0 Hypertensive heart disease with heart failure; I50.9 Heart failure, unspecified; I25.10 Atherosclerotic heart disease of native coronary artery without angina pectoris; J45.909 Unspecified asthma, uncomplicated; K21.9 Gastro-esophageal reflux disease without esophagitis; E11.9 Type 2 diabetes mellitus without complications; Z95.1 Presence of aortocoronary bypass graft; Z79.899 Other long term (current) drug therapy; Z79.82 Long term (current) use of aspirin; Z88.5 Allergy status to narcotic agent; Z91.041 Radiographic dye allergy status; Z88.6 Allergy status to analgesic agent; Z88.0 Allergy status to penicillin; Z91.048 Other nonmedicinal substance allergy status; Z91.013 Allergy to seafood
CPT/HCPCS: 70450; 72125; 96374; 99284; J1170; J3490

== ENCOUNTER 2025-07-10 20:06 | Emergency (ER) | payer MEDICARE, OTHER ==
[2025-07-10] MEDS: Sodium Chloride 0.9% 10 ML Syringe FLUSH PRN (20:52)
[2025-07-10 20:54] LABS: BASOPHILS ABSOLUTE AUTO 0.0 K/mm3 (0.0-0.2); BASOPHILS PERCENT AUTO 0.5 % (0.0-1.0); EOSINOPHILS ABSOLUTE AUTO 0.1 K/mm3 (0.0-0.4); EOSINOPHILS PERCENT AUTO 1.6 % (0.0-6.0); IMMATURE GRAN ABSOLUTE AUTO 0.01 K/mm3 (0.00-0.05); IMMATURE GRAN PERCENT AUTO 0.2 % (0.0-0.4); LYMPHOCYTES ABSOLUTE AUTO 2.1 K/mm3 (1.0-4.8); LYMPHOCYTES PERCENT AUTO 36.8 % (24.0-44.0); MEAN PLATELET VOLUME 10.0 fl (9.4-12.3); MONOCYTES ABSOLUTE AUTO 0.8 K/mm3 (0.0-0.8); MONOCYTES PERCENT AUTO 14.7 % (0.0-8.0); NEUTROPHILS ABSOLUTE AUTO 2.6 K/mm3 (1.8-7.7); NEUTROPHILS PERCENT AUTO 46.2 % (41.0-71.0); NRBC ABSOLUTE 0.00 (0.00-0.02); NRBC PERCENT 0.0 % (0.0-0.2); PLATELET COUNT,PLT 143 K/mm3 (150-400); RED BLOOD CELL COUNT 3.80 M/mm3 (4.10-5.30); WHITE BLOOD CELL COUNT,WBC 5.63 K/mm3 (3.9-11.3)
[2025-07-10 21:21] LABS: A/G RATIO 1.1 (1-2); ALANINE AMINOTRANSFERASE,ALT 20 U/L (14-59); ASPARTATE AMNIOTRANSFERASE,AST 19 U/L (15-37); BILIRUBIN TOTAL 0.3 mg/dL (0.2-1.0); BLOOD UREA NITROGEN,BUN 17 mg/dL (7-18); CARBON DIOXIDE,CO2 30 mEq/L (21-32); CHLORIDE,CL 99 mEq/L (98-107); CREATININE 1.4 mg/dL (0.55-1.02); ESTIMATED GFR 37 mL/min (>60); GLUCOSE RANDOM 152 mg/dL (70-99); POTASSIUM,K 3.8 mEq/L (3.5-5.1); PROTEIN TOTAL,TP 7.0 g/dl (6.4-8.2); SODIUM,NA 135 mEq/L (136-145); TROPONIN I HIGH SENSITIVITY 6 pg/mL (<=51)
[2025-07-10 22:47] VITALS: BP 123/92; PULSE 70
== END 2025-07-10 22:47 | disposition home or self-care (01) ==
LOC: JD.ED 20:06
DX: I95.0 Idiopathic hypotension (principal); R40.4 Transient alteration of awareness; E86.0 Dehydration; E78.00 Pure hypercholesterolemia, unspecified; I10 Essential (primary) hypertension; I25.10 Atherosclerotic heart disease of native coronary artery without angina pectoris; J45.909 Unspecified asthma, uncomplicated; Z88.6 Allergy status to analgesic agent; Z91.041 Radiographic dye allergy status; Z91.048 Other nonmedicinal substance allergy status; Z88.5 Allergy status to narcotic agent; Z91.013 Allergy to seafood; Z88.0 Allergy status to penicillin; Z79.82 Long term (current) use of aspirin; Z79.899 Other long term (current) drug therapy; Z79.84 Long term (current) use of oral hypoglycemic drugs; Z95.1 Presence of aortocoronary bypass graft
CPT/HCPCS: 36415; 70450; 71045; 80053; 83735; 84484; 85025; 93005; 96360; 99285; J7030; 93010; 99283